=== PATIENT | male | born 1965 | race Caucasian/White ===

== ENCOUNTER → 2019-12-19 16:11 | Outpatient (BNVA) | payer OTHER, SELFPAY | PROVIDERS: Family Provider Internal Medicine; PCP Internal Medicine; Visit Provider Internal Medicine | DX: I10 Essential (primary) hypertension (principal); E11.9 Type 2 diabetes mellitus without complications; B19.20 Unspecified viral hepatitis C without hepatic coma; Z86.19 Personal history of other infectious and parasitic diseases; N52.1 Erectile dysfunction due to diseases classified elsewhere; E78.5 Hyperlipidemia, unspecified | CPT/HCPCS: 80053; 83036; 85025; 87522 ==

== ENCOUNTER 2021-10-30 19:59 | Emergency (ER) | payer SELFPAY ==
--- NOTE | 2021-10-30 20:25 | XRR_ITS ---
PROCEDURE INFORMATION: Exam: XR Chest Exam date and time: 10/30/2021 8:25 PM Age: 55 years old Clinical indication: Cough TECHNIQUE: Imaging protocol: XR of the chest. Views: 1 view. COMPARISON: CT chest [facility] [id number] 06/24/2016 7:30 PM FINDINGS: Lungs: Dependent ground-glass opacity in the right lung base. The left lung is clear. Pleural spaces: Unremarkable. No pleural effusion. No pneumothorax. Heart/Mediastinum: Mild cardiomegaly. Bones/joints: Unremarkable. XR/XR chest 1V portable [id number] IMPRESSION: 1. Opacity in the right base could represent atelectasis and/or pneumonia.
[2021-10-30 20:27] VITALS: BP 178/94; PULSE 91; RESP 18; TEMP 37.6; O2SAT 93
--- NOTE | 2021-10-30 20:32 | ED_ITS ---
Documented by User: Tony Falk MD 11/07/21 21:46 HPI - SOB/Dyspnea General: Chief Complaint: Shortness of Breath/Dyspnea Stated Complaint: coughing Time Seen by Provider: 10/30/21 20:31 History of Present Illness: HPI Narrative: Mr. Simpson is a 55-year-old gentleman with history of hypertension and diabetes and remote history of tobaccoism for 30 years who presents to the emergency department due to shortness of breath and cough. Symptoms have been ongoing for a few weeks. He was diagnosed approximately 3 weeks ago with bilateral pneumonia and completed his course of antibiotics with only minimal improvement. He endorses coughing spells that is mildly productive. Additionally he has associated dizziness and generalized malaise. No other signs of systemic illness or focal source of infection. Overall the course of symptoms has persisted. Intensity is moderate. No other specific exacerbating relieving factors identified. Review of Systems General: Reports: 10 or more systems reviewed and unremarkable except in HPI and below PFSH ED PFSH: Medical History (Updated 10/30/21 @ 22:48 by Tony Falk MD) Diabetes mellitus Essential (primary) hypertension WOLF on CPAP Surgical History History of colonoscopy with polypectomy Family History Father , AGE 56 Myocardial infarct Social History Smoking and tobacco status: former smoker Alcohol intake: never History of recent travel: No Physical Exam Narrative: EXAM NARRATIVE: GENERAL/CONSTITUTIONAL -mildly ill-appearing. Obes e Eyes - PERRL, no conjunctival injection ENMT - Atraumatic external nose and ears. Moist mucous membranes NECK - supple. trachea midline CARDIOVASCULAR - regular rate and rhythm. Peripheral pulses 2+ and equal RESPIRATORY -diminished/coarse to auscultation bilaterally. No retractions or accessory muscle use. ABDOMEN/GI - Nontender/Nondistended. MSK - Extremities without obvious deformity or tenderness to palpation SKIN - Warm, Dry NEURO - alert and appropriately oriented. Moves all extremities equally. Course ED course: - Patient was seen and evaluated by me at bedside - Patient placed on cardiac monitors, IV access obtained - Initial evaluation notable for exam as above -Symptom treatment ordered - Labs notable for no significant hematologic abnormalities. No acute electrolyte derangements. - Imaging notable for right base opacity - Patient care handed off to overnight ED physician Dr. Dolan pending completion of ED evaluation and reassessment. Vital Signs: Vital signs: Vital Signs Temperature 99.6 F 10/30/21 20:27 Pulse Rate 84 10/31/21 00:57 Respiratory Rate 24 H 10/31/21 00:57 Blood Pressure 165/108 10/31/21 00:57 Pulse Oximetry 92 10/31/21 00:57 MDM - SOB/Dyspnea Medical Records: Attestation: I reviewed the patient's medical records. Lab Data: Attestation: I reviewed the patient's lab results. Labs: Lab Results 10/30/21 10/30/21 10/30/21 21:04 21:30 21:30 WBC 4.1 10^3/uL 10^3/ uL (4.0-10.0) RBC 4.69 10^6/uL 10^6 /uL (4.1-5.3) Hgb 14.5 g/dL g/dL (11.7-16.6) Hct 43.6 % % (42.0-52.0) MCV 93.0 fl fl (80-94) MCH 30.9 pg pg (28.0-34.0) MCHC 33.3 g/dL g/dL (30.0-36.0) RDW 12.1 % % (12.1-15.1) Plt Count 163 10^3/cmm 10^3 /cmm (130-400) MPV 10.0 fL fL (7.4-10.4) Neut % (Auto) 47.5 % % Lymph % (Auto) 29.1 % % [place] % (Auto) 13.3 % % Eos % (Auto) 8.6 % % Baso % (Auto) 1.0 % % Neut # (Auto) 1.92 10^3/uL 10^3 /uL (1.8-7.7) Lymph # (Auto) 1.2 10^3/uL 10^3/ uL (0.8-4.8) [place] # (Auto) 0.5 10^3/uL 10^3/ uL (0.2-0.9) Eos # (Auto) 0.4 10^3/uL 10^3/ uL (0.0-0.8) Baso # (Auto) 0.0 10^3/uL 10^3/ uL (0.0-0.1) Nucleated RBC % (a uto) 0 % % Nucleated RBCs # 0.0 /100WBC /100W BC Sodium Cancelled Potassium Cancelled Chloride Cancelled Carbon Dioxide Cancelled Anion Gap Cancelled BUN Cancelled Creatinine Cancelled GFR Calculation Cancelled Glucose Cancelled Calculated Osmolal ity Cancelled Calcium Cancelled Total Bilirubin Cancelled AST Cancelled ALT Cancelled Alkaline Phosphata se Cancelled C-Reactive Protein Cancelled NT-Pro-B Natriuret Pep Cancelled Total Protein Cancelled Albumin Cancelled Globulin Cancelled Procalcitonin Cancelled SARS-CoV-2 Ag (Rap id) Positive H (Negative) 10/30/21 10/30/21 22:10 23:30 WBC RBC Hgb Hct MCV MCH MCHC RDW Plt Count MPV Neut % (Auto) Lymph % (Auto) [place] % (Auto) Eos % (Auto) Baso % (Auto) Neut # (Auto) Lymph # (Auto) [place] # (Auto) Eos # (Auto) Baso # (Auto) Nucleated RBC % (a uto) Nucleated RBCs # Sodium Cancelled 137 mmol/L mmol/L (136-145) Potassium Cancelled 3.9 mmol/L mmol/L (3.5-5.1) Chloride Cancelled 100 mmol/L mmol/L (98-107) Carbon Dioxide Cancelled 22 mmol/L mmol/L (22-29) Anion Gap Cancelled 18.9 (5-19) BUN Cancelled 14 mg/dL mg/dL (6-20) Creatinine Cancelled 0.9 mg/dL mg/dL (0.7-1.2) GFR Calculation Cancelled 87.0 mL/min L mL/ min (90-130) Glucose Cancelled 163 mg/dL H mg/dL (65-115) Calculated Osmolal ity Cancelled 288 mOsm/kg mOsm/ kg (285-295) Calcium Cancelled 8.3 mg/dL L mg/dL (8.5-10.5) Total Bilirubin Cancelled 0.2 mg/dL mg/dL (0.15-1.2) AST Cancelled 31 U/L U/L (0-40) ALT Cancelled 39 U/L U/L (0-41) Alkaline Phosphata se Cancelled 47 IU/L IU/L (40-130) C-Reactive Protein Cancelled 2.8 mg/L mg/L (0.0-4.9) NT-Pro-B Natriuret Pep Cancelled 186 pg/mL H pg/mL (0-125) Total Protein Cancelled 7.0 g/dL g/dL (6.6-8.7) Albumin Cancelled 4.1 g/dL g/dL (3.5-5.2) Globulin Cancelled 2.9 g/dL g/dL (1.3-4.6) Procalcitonin Cancelled 0.04 ng/mL ng/mL (0-0.5) SARS-CoV-2 Ag (Rap id) Discharge Plan Discharge Patient Disposition: Home Clinical Impression: COVID-19, Shortness of breath, Cough, Pneumonia due to COVID-19 virus Condition: Stable Prescriptions: New Pulmicort Flexhaler 90 mcg/actuation aerosol powdr breath activated 2 inh inhalation Q12H PRN (Reason: shortness of breath) Qty: 1 RF: 0 No Action tadalafil 10 mg tablet 10 mg PO DAILY PRN (Reason: sexual activity) Qty: 30 RF: 5 metformin 1,000 mg tablet 1,000 mg PO BID Qty: 180 RF: 3 lisinopril-hydrochlorothiazide 20-12.5 mg tablet 2 tab PO DAILY Qty: 180 RF: 3 Discharge Orders: Discharge ED (Routine); Ordered 10/31/21 Ordered By: Lauren Dolan Referrals: Kyle Traore MD [Primary Care Provider] - 1-3 days Discharge Diet: Usual diet Discharge Activity: Increase activity as tolerated Patient Instructions: COVID-19 (Coronavirus Disease 2019) (ED) Activity Restrictions/Additional Instructions: Thank you for visiting the emergency department. You were seen and evaluated for cough, shortness of breath, and dizziness. The exact cause of your symptoms is unclear though you did test positive for COVID-19 which likely explains your symptoms. Unfortunately, given that you have had symptoms for a number of weeks the exact day of onset of your Covid is unclear and therefore you do not qualify for monoclonal antibody infusion. Treatment for COVID-19 is supportive with self quarantine. You may use [id number] medications for symptoms as long as no prior physician has told you to avoid certain medications. Additionally please ensure that you are following dosing directions on the packaging. Please return to the emergency department for worsening symptoms, low oxygen levels on pulse oximeter (less than 90% while at rest) or anything else that you are concerned about and feel needs emergency department evaluation. Coding Level of Care Code ED [facility] for [place] Fwd Documented by User: Lauren Dolan MD 10/31/21 00:49 HPI - SOB/Dyspnea General: Chief Complaint: Shortness of Breath/Dyspnea Stated Complaint: coughing Time Seen by Provider: 10/30/21 20:31 [facility] ED PFSH: Medical History (Updated 10/30/21 @ 22:48 by Tony Falk MD) Diabetes mellitus Essential (primary) hypertension WOLF on CPAP Surgical History History of colonoscopy with polypectomy Family History Father , AGE 56 Myocardial infarct Social History Smoking and tobacco status: former smoker Alcohol intake: never History of recent travel: No Course Vital Signs: Vital signs: Vital Signs Temperature 99.6 F 10/30/21 20:27 Pulse Rate 84 10/31/21 00:57 Respiratory Rate 24 H 10/31/21 00:57 Blood Pressure 165/108 10/31/21 00:57 Pulse Oximetry 92 10/31/21 00:57 MDM - SOB/Dyspnea MDM Narrative: Medical decision making narrative: Patient presents with cough shortness of breath has been going on for weeks likely due to Covid. Patient is Covid positive here viral appearing pneumonia on x-ray patient's blood work here is normal he is not requiring oxygen he is not a candidate for monoclonal antibodies his symptoms have been too long he is stable for discharge return if worsening he understands agrees plan. Lab Data: Labs: Lab Results 10/30/21 10/30/21 10/30/21 21:04 21:30 21:30 WBC 4.1 10^3/uL 10^3/ uL (4.0-10.0) RBC 4.69 10^6/uL 10^6 /uL (4.1-5.3) Hgb 14.5 g/dL g/dL (11.7-16.6) Hct 43.6 % % (42.0-52.0) MCV 93.0 fl fl (80-94) MCH 30.9 pg pg (28.0-34.0) MCHC 33.3 g/dL g/dL (30.0-36.0) RDW 12.1 % % (12.1-15.1) Plt Count 163 10^3/cmm 10^3 /cmm (130-400) MPV 10.0 fL fL (7.4-10.4) Neut % (Auto) 47.5 % % Lymph % (Auto) 29.1 % % [place] % (Auto) 13.3 % % Eos % (Auto) 8.6 % % Baso % (Auto) 1.0 % % Neut # (Auto) 1.92 10^3/uL 10^3 /uL (1.8-7.7) Lymph # (Auto) 1.2 10^3/uL 10^3/ uL (0.8-4.8) [place] # (Auto) 0.5 10^3/uL 10^3/ uL (0.2-0.9) Eos # (Auto) 0.4 10^3/uL 10^3/ uL (0.0-0.8) Baso # (Auto) 0.0 10^3/uL 10^3/ uL (0.0-0.1) Nucleated RBC % (a uto) 0 % % Nucleated RBCs # 0.0 /100WBC /100W BC Sodium Cancelled Potassium Cancelled Chloride Cancelled Carbon Dioxide Cancelled Anion Gap Cancelled BUN Cancelled Creatinine Cancelled GFR Calculation Cancelled Glucose Cancelled Calculated Osmolal ity Cancelled Calcium Cancelled Total Bilirubin Cancelled AST Cancelled ALT Cancelled Alkaline Phosphata se Cancelled C-Reactive Protein Cancelled NT-Pro-B Natriuret Pep Cancelled Total Protein Cancelled Albumin Cancelled Globulin Cancelled Procalcitonin Cancelled SARS-CoV-2 Ag (Rap id) Positive H (Negative) 10/30/21 10/30/21 22:10 23:30 WBC RBC Hgb Hct MCV MCH MCHC RDW Plt Count MPV Neut % (Auto) Lymph % (Auto) [place] % (Auto) Eos % (Auto) Baso % (Auto) Neut # (Auto) Lymph # (Auto) [place] # (Auto) Eos # (Auto) Baso # (Auto) Nucleated RBC % (a uto) Nucleated RBCs # Sodium Cancelled 137 mmol/L mmol/L (136-145) Potassium Cancelled 3.9 mmol/L mmol/L (3.5-5.1) Chloride Cancelled 100 mmol/L mmol/L (98-107) Carbon Dioxide Cancelled 22 mmol/L mmol/L (22-29) Anion Gap Cancelled 18.9 (5-19) BUN Cancelled 14 mg/dL mg/dL (6-20) Creatinine Cancelled 0.9 mg/dL mg/dL (0.7-1.2) GFR Calculation Cancelled 87.0 mL/min L mL/ min (90-130) Glucose Cancelled 163 mg/dL H mg/dL (65-115) Calculated Osmolal ity Cancelled 288 mOsm/kg mOsm/ kg (285-295) Calcium Cancelled 8.3 mg/dL L mg/dL (8.5-10.5) Total Bilirubin Cancelled 0.2 mg/dL mg/dL (0.15-1.2) AST Cancelled 31 U/L U/L (0-40) ALT Cancelled 39 U/L U/L (0-41) Alkaline Phosphata se Cancelled 47 IU/L IU/L (40-130) C-Reactive Protein Cancelled 2.8 mg/L mg/L (0.0-4.9) NT-Pro-B Natriuret Pep Cancelled 186 pg/mL H pg/mL (0-125) Total Protein Cancelled 7.0 g/dL g/dL (6.6-8.7) Albumin Cancelled 4.1 g/dL g/dL (3.5-5.2) Globulin Cancelled 2.9 g/dL g/dL (1.3-4.6) Procalcitonin Cancelled 0.04 ng/mL ng/mL (0-0.5) SARS-CoV-2 Ag (Rap id) Discharge Plan Discharge Patient Disposition: Home Clinical Impression: COVID-19, Shortness of breath, Cough, Pneumonia due to COVID-19 virus Condition: Stable Prescriptions: New Pulmicort Flexhaler 90 mcg/actuation aerosol powdr breath activated 2 inh inhalation Q12H PRN (Reason: shortness of breath) Qty: 1 RF: 0 No Action tadalafil 10 mg tablet 10 mg PO DAILY PRN (Reason: sexual activity) Qty: 30 RF: 5 metformin 1,000 mg tablet 1,000 mg PO BID Qty: 180 RF: 3 lisinopril-hydrochlorothiazide 20-12.5 mg tablet 2 tab PO DAILY Qty: 180 RF: 3 Discharge Orders: Discharge ED (Routine); Ordered 10/31/21 Ordered By: Lauren Dolan Referrals: Kyle Traore MD [Primary Care Provider] - 1-3 days Discharge Diet: Usual diet Discharge Activity: Increase activity as tolerated Patient Instructions: COVID-19 (Coronavirus Disease 2019) (ED) Activity Restrictions/Additional Instructions: Thank you for visiting the emergency department. You were seen and evaluated for cough, shortness of breath, and dizziness. The exact cause of your symptoms is unclear though you did test positive for COVID-19 which likely explains your symptoms. Unfortunately, given that you have had symptoms for a number of weeks the exact day of onset of your Covid is unclear and therefore you do not qualify for monoclonal antibody infusion. Treatment for COVID-19 is supportive with self quarantine. You may use [id number] medications for symptoms as long as no prior physician has told you to avoid certain medications. Additionally please ensure that you are following dosing directions on the packaging. Please return to the emergency department for worsening symptoms, low oxygen levels on pulse oximeter (less than 90% while at rest) or anything else that you are concerned about and feel needs emergency department evaluation. Coding Level of Care Code ED [facility] for Rosalinda Ornelas
[2021-10-30 21:50] LABS: Eosinophils # 0.4 10^3/uL (0.0-0.8); Eosinophils % 8.6 %; Hematocrit 43.6 % (42.0-52.0); Hemoglobin 14.5 g/dL (11.7-16.6); Lymphocytes # 1.2 10^3/uL (0.8-4.8); Lymphocytes % 29.1 %; Mean Corpuscular HGB Conc 33.3 g/dL (30.0-36.0); Mean Corpuscular Hemoglobin 30.9 pg (28.0-34.0); Monocytes # 0.5 10^3/uL (0.2-0.9); Monocytes % 13.3 %; Neutrophils # 1.92 10^3/uL (1.8-7.7); Neutrophils % 47.5 %; Nucleated Red Blood Cells % 0 %; Platelet Count 163 10^3/cmm (130-400); Red Blood Count 4.69 10^6/uL (4.1-5.3); Red Cell Distribution Width 12.1 % (12.1-15.1); White Blood Count 4.1 10^3/uL (4.0-10.0)
[2021-10-30 22:15] LABS: SARS Covid-2 Antigen Positive (Negative)
[2021-10-30] MEDS: ketorolac 30 mg/mL INJ 15 MG IVP (23:07)
[2021-10-30] MEDS: sodium chloride 0.9% 500 ML 999 ML IV (23:08)
[2021-10-30 23:15] VITALS: BP 142/95; PULSE 94; RESP 24; O2SAT 94
[2021-10-31 00:10] VITALS: BP 141/97; PULSE 84; RESP 24; O2SAT 94
[2021-10-31 00:12] LABS: NT Pro B Type Natriuretic Pept 186 pg/mL (0-125); Procalcitonin 0.04 ng/mL (0-0.5)
[2021-10-31 00:23] LABS: Alanine Aminotransferase 39 U/L (0-41); Albumin Level 4.1 g/dL (3.5-5.2); Alkaline Phosphatase 47 IU/L (40-130); Anion Gap 18.9 (5-19); Aspartate Amino Transferase 31 U/L (0-40); Blood Urea Nitrogen 14 mg/dL (6-20); C Reactive Protein 2.8 mg/L (0.0-4.9); Calcium 8.3 mg/dL (8.5-10.5); Carbon Dioxide 22 mmol/L (22-29); Chloride 100 mmol/L (98-107); Globulin 2.9 g/dL (1.3-4.6); Glucose 163 mg/dL (65-115); Osmolality Calculated 288 mOsm/kg (285-295); Potassium 3.9 mmol/L (3.5-5.1); Sodium 137 mmol/L (136-145); Total Bilirubin 0.2 mg/dL (0.15-1.2)
[2021-10-31 00:57] VITALS: BP 165/108; PULSE 84; RESP 24; O2SAT 92
== END 2021-10-31 00:30 | disposition home or self-care (01) ==
PROVIDERS: Emergency Medicine; Emergency Provider Emergency Medicine; PCP Internal Medicine
DX: U07.1 COVID-19 (principal); J12.82 Pneumonia due to coronavirus disease 2019; R05.9 Cough, unspecified; R06.02 Shortness of breath; E11.9 Type 2 diabetes mellitus without complications; Z79.84 Long term (current) use of oral hypoglycemic drugs; I10 Essential (primary) hypertension
CPT/HCPCS: 71045; 80053; 83880; 84145; 85025; 86140; 87426; 96374; 99284; J1885; J7040

== ENCOUNTER 2022-06-11 20:49 | Emergency (ER) | payer OTHER, SELFPAY ==
[2022-06-11 21:02] VITALS: BP 138/87; PULSE 90; RESP 16; TEMP 35.9; O2SAT 94
--- NOTE | 2022-06-11 23:51 | W.ED.DENTAL ---
HPI - Dental/Oral General: Chief complaint: Dental/Oral Stated complaint: tooth pain Time Seen by Provider: 06/11/22 23:28 History of Present Illness: Patient is a 56-year-old male comes to the ED with dental pain. Dental pain started couple days ago. He has a bad tooth in his back left lower molar. He endorses having pain that he rates as moderate to severe. He has an appointment scheduled with dentist in about 3 weeks. Associated symptoms: Denies fever(s) or odynophagia Review of Systems Const: Denies: fever(s), chills or fatigue Eyes: Denies: change in vision or eye discomfort ENMT: Reports: dental pain; Denies: throat pain, odynophagia, nasal discharge or nasal congestion Card: Denies: chest pain, palpitations, edema, swelling of feet/ankles, dyspnea on exertion or orthopnea Resp: Denies: dyspnea, productive cough or non-productive cough GI: Denies: abdominal pain, nausea, vomiting, diarrhea, constipation or hematochezia : Denies: flank pain, difficulty urinating, dysuria or hematuria Musc: Denies: neck pain, back pain or extremity swelling Skin/Breast: Denies: rash or new lesions Neuro: Denies: headache(s), numbness in extremities or weakness in extremities PFSH ED PFSH: Medical History Diabetes mellitus Essential (primary) hypertension WOLF on CPAP Surgical History History of colonoscopy with polypectomy Family History Father , AGE 56 Myocardial infarct Social History Smoking and tobacco status: former smoker Alcohol intake: never History of recent travel: No Physical Exam Const: COMMON NORMALS: patient oriented x3 and alert GENERAL APPEARANCE: cooperative HENMT: COMMON NORMALS: normocephalic HEAD & SCALP: normocephalic MOUTH: Normal oral and palatal mucosa present TEETH & GINGIVA: Yes caries and Yes poor dentition THROAT: posterior oropharynx normal and uvula midline Neck/C-Spine: COMMON NORMALS: supple GENERAL: Yes normal visual inspection Resp: COMMON NORMALS: normal respiratory effort, No retractions, No use of accessory muscles and clear to auscultation bilaterally AUSCULTATION: clear to auscultation bilaterally Cardio: COMMON NORMALS: regular rate, regular rhythm, S1 normal heart sound present, S2 normal heart sound present, No gallops present (Cardio), No clicks present (Cardio), No murmurs present (Cardio) and Peripheral pulses 2+ throughout RATE: regular rate RHYTHM: regular rhythm HEART SOUNDS: S1 normal heart sound present and S2 normal heart sound present PERIPHERAL PULSES: Peripheral pulses 2+ throughout GI: COMMON NORMALS: Normal to inspection, nondistended, normoactive bowel sounds present, Soft to palpation, non-tender and no masses PALPATION: Yes Soft to palpation : COMMON NORMALS: Yes no CVA tenderness BLADDER/KIDNEY EXAM: Yes no CVA tenderness Back/Pelvis: COMMON NORMALS: no CVA tenderness Extremity: COMMON NORMALS: normal to inspection Neuro: COMMON NORMALS: patient oriented x3 SENSORIUM/ORIENTATION: Yes alert GAIT: Yes Normal gait present Skin: GENERAL SKIN EXAM: dry skin Course Vital Signs: Vital signs: Vital Signs Temperature 96.6 F L 06/12/22 00:13 Pulse Rate 90 06/12/22 00:13 Respiratory Rate 16 06/12/22 00:13 Blood Pressure 138/87 06/12/22 00:13 Pulse Oximetry 94 06/12/22 00:13 Oxygen Delivery Me thod 06/11/22 21:02 [facility] - Dental/Oral Medical Decision Making Patient is a 56-year-old male comes to the ED with dental pain. Patient has poor dentition and has a scheduled appointment set up with a dentist in the next 3 weeks. He was stable for discharge home and sent home with a prescription for clindamycin and some tramadol for pain. Return to ED precautions given. Patient told to follow-up with dentist at your next scheduled appointment for further management of dental pain. Patient understood and agreed with plan. Discharge Plan Discharge Patient Disposition: Home Clinical Impression: Pain, dental Condition: Stable Prescriptions: New clindamycin HCl 150 mg capsule 300 mg PO Q6H 7 Days Qty: 56 0RF Lidocaine Viscous 2 % solution 1 applic mucous membrane Q8H PRN (Reason: pain) Qty: 100 0RF No Action Centrum Silver Men 300-600-300 mcg tablet 1 tab PO DAILY Eliquis 5 mg tablet 5 mg PO BID Qty: 180 3RF atorvastatin 40 mg tablet 40 mg PO DAILY Qty: 90 3RF diltiazem HCl 180 mg capsule,extended release 24 hr 180 mg PO DAILY Qty: 90 8RF Jardiance 25 mg tablet 25 mg PO DAILY Qty: 90 3RF lisinopril-hydrochlorothiazide 20-12.5 mg tablet 2 tab PO DAILY Qty: 180 3RF metformin 500 mg tablet extended release 24hr 1,000 mg PO BID Qty: 180 3RF Pulmicort Flexhaler 90 mcg/actuation aerosol powdr breath activated 2 inh inhalation Q12H PRN (Reason: shortness of breath) Qty: 1 0RF Discharge Orders: Discharge ED (Routine); Ordered 06/11/22 Ordered By: Rinku Kraus Referrals: Kyle Traore MD [Primary Care Provider] - Discharge Diet: Regular Discharge Activity: Increase activity as tolerated Activity Restrictions/Additional Instructions: Follow-up with dentist at your scheduled appointment for further evaluation and management of dental pain. Take medications as prescribed. Return to the ER or your medical provider if condition worsens. Please read and understand discharge instructions. Thank you for choosing [facility] for your healthcare needs today. Please realize this is an emergency room and that we are providing you with a medical screening exam and this may not be complete and all inclusive of all the testing and or work up that you may need to determine your ailment or severity of your illness. It is very important that you follow up as instructed or that you return to the Emergency Department should you have concerns or if your condition changes or worsens in any way. Coding Level of Care Code ED Community Affairs Manager for Rosalinda Ornelas Exam Comprehensive
[2022-06-12] MEDS: TRAMadol 50 mg Tablet 100 MG PO (00:12)
[2022-06-12] MEDS: clindamycin 150 mg Capsule 300 MG PO (00:12)
[2022-06-12 00:13] VITALS: BP 138/87; PULSE 90; RESP 16; TEMP 35.9; O2SAT 94
== END 2022-06-12 00:13 | disposition home or self-care (01) ==
PROVIDERS: Emergency Provider Physician Assistant; PCP Internal Medicine
DX: K08.89 Other specified disorders of teeth and supporting structures (principal); Z79.01 Long term (current) use of anticoagulants; Z79.84 Long term (current) use of oral hypoglycemic drugs; E11.9 Type 2 diabetes mellitus without complications; I10 Essential (primary) hypertension; Z87.891 Personal history of nicotine dependence
CPT/HCPCS: 99283

== ENCOUNTER 2025-03-15 11:11 | Emergency (ER) | payer BC, SELFPAY ==
[2025-03-15] VITALS (12 sets, daily range): BP systolic 91–159; BP diastolic 71–94; PULSE 69–97; RESP 16–18; TEMP 36.7; O2SAT 93–100; BMI 40.6
--- NOTE | 2025-03-15 11:12 | ECG_ITS ---
[employer] Test Date: 2025-03-15 Pat Name: Fan Simpson Department: Room: Gender: Male News Assistant: : 1965 Requested By: Cade Max Order Number: [id number] Tien MD: Yordy Ferreira M.D. Measurements Intervals [place] Rate: 93 P: 0 [place]: 0 QRS: -42 QRSD: 156 T: 107 QT: 393 QTc: 491 Interpretive Statements ATRIAL FIBRILLATION WITH ABERRANT CONDUCTION OR VENTRICULAR PREMATURE COMPLEXES LEFT AXIS DEVIATION [QRS AXIS < -30] LEFT BUNDLE BRANCH BLOCK [120+ ms QRS DURATION, 80+ ms Q/S IN V1/V2, 85+ ms R IN I/aVL/V5/V6] Compared to ECG 06/23/2016 07:33:05 Ventricular premature complex(es) now present Aberrant conduction of supraventricular beat(s) now present Left-axis deviation now present Left bundle-branch block now present Sinus tachycardia no longer present T-wave abnormality no longer present Electronically Signed On 03-16-2025 13:43:48 CDT by Yordy Ferreira M.D. [id number]
--- NOTE | 2025-03-15 11:31 | XR_ITS ---
WS: [id number] XR chest 1V portable [id number] REASON FOR EXAM: chest pain FINDINGS: The chest is unchanged compared to 10/30/2021. There is mild tortuosity of the thoracic aorta. There is cardiomegaly. Calcified granulomatous disease bilaterally. No acute pulmonary parenchymal or pleural abnormality. XR/XR chest 1V portable [id number] IMPRESSION: Stable chest without acute abnormality as above.
[2025-03-15 11:40] LABS: Basophils # 0.1 10^3/uL (0.0-0.1); Basophils % 0.8 %; Eosinophils # 0.9 10^3/uL (0.0-0.8); Eosinophils % 10.1 %; Lymphocytes # 2.3 10^3/uL (0.8-4.8); Lymphocytes % 26.2 %; Mean Corpuscular HGB Conc 34.7 g/dL (30-55); Mean Corpuscular Hemoglobin 31.1 pg (27-33); Mean Corpuscular Volume 89.5 fl (82-101); Mean Platelet Volume 9.6 fL (7.4-10.4); Monocytes # 0.9 10^3/uL (0.2-0.9); Monocytes % 10.1 %; Neutrophils # 4.64 10^3/uL (1.8-7.7); Neutrophils % 51.9 %; Nucleated Red Blood Cells % 0 %; Platelet Count 217 10^3/cmm (157-399); Red Cell Distribution Width 11.9 % (12.1-15.1); White Blood Count 8.93 10^3/uL (3.29-11.43)
--- NOTE | 2025-03-15 11:45 | W.ED.CHESTPA ---
HPI - Chest Pain General: Chief Complaint: Chest Pain Stated Complaint: cp, dizzy, sob Time Seen by Provider: 03/15/25 11:22 History of Present Illness: Patient is a 59-year-old male who presents with acute onset chest pain that began approximately one hour prior to arrival. He describes central chest pain with radiation to both shoulders and jaw, characterized as a squeezing sensation. The patient also reports associated symptoms of dizziness and lightheadedness, with earlier shortness of breath. The pain began while he was sitting at rest. He denies back pain. Of note, patient has significant cardiac risk factors including atrial fibrillation, hypertension, and type 2 diabetes. He underwent cardiac catheterization approximately 1.5 years ago in [place], which revealed minor disease not requiring intervention. He reports compliance with his anticoagulation (Eliquis) for atrial fibrillation. He has not taken any aspirin prior to arrival. Related Data Home Medications ?Medication ?Instructions ?Recorded ?Confirmed chlorthalidone 25 mg tablet 25 mg PO DAILY 03/15/25 03/15/25 lisinopril 40 mg tablet 40 mg PO DAILY 03/15/25 03/15/25 metoprolol succinate 25 mg 25 mg PO DAILY 03/15/25 03/15/25 tablet,extended release 24 hr semaglutide 1 mg/dose (4 mg/3 mL) 1 mg SUBCUT Q7D 03/15/25 03/15/25 subcutaneous pen injector (Ozempic) Previous Rx's ?Medication ?Instructions ?Recorded apixaban 5 mg tablet (Eliquis) 5 mg PO BID #180 tabs 05/07/22 atorvastatin 40 mg tablet 40 mg PO DAILY #90 tabs 05/07/22 diltiazem HCl 180 mg capsule,24 180 mg PO DAILY #90 caps 05/07/22 hr,extended release empagliflozin 25 mg tablet 25 mg PO DAILY #90 tabs 05/07/22 (Jardiance) Allergies Allergy/AdvReac Type Severity Reaction Status Date / Time No Known Allergies Allergy Verified 03/18/23 18:20 [facility] ED PFS: Medical History (Updated 03/15/25 @ 14:26 by Rick Pool MD) Diabetes mellitus WOLF on CPAP Essential (primary) hypertension Surgical History History of colonoscopy with polypectomy Family History Father , AGE 56 Myocardial infarct Social History Smoking and tobacco/nicotine status: former use of tobacco/nicotine Alcohol intake: never Physical Exam Const: COMMON NORMALS: no acute distress, alert and well nourished GENERAL APPEARANCE: cooperative NUTRITIONAL APPEARANCE: obese ORIENTATION/CONSCIOUSNESS: Yes awake HENMT: COMMON NORMALS: normocephalic and atraumatic HEAD & SCALP: normocephalic and atraumatic Eye: COMMON NORMALS: conjunctivae normal CONJUNCTIVA: Yes conjunctivae normal Neck/C-Spine: GENERAL: Yes normal visual inspection Resp: COMMON NORMALS: normal respiratory effort, No retractions and No use of accessory muscles Cardio: COMMON NORMALS: Peripheral pulses 2+ throughout RHYTHM: abnormal rhythm PERIPHERAL PULSES: Peripheral pulses 2+ throughout GI: COMMON NORMALS: Soft to palpation and non-tender PALPATION: Yes Soft to palpation Extremity: COMMON NORMALS: full ROM and no pedal edema Neuro: COMMON NORMALS: no focal motor deficits SENSORIUM/ORIENTATION: Yes alert Skin: COMMON NORMALS: no rashes or lesions noted GENERAL SKIN EXAM: no rashes or lesions noted Course Vital Signs: Vital signs: Vital Signs Temperature 98.1 F 03/15/25 11:18 Pulse Rate 78 03/15/25 13:49 Respiratory Rate 16 03/15/25 12:25 Blood Pressure 102/76 03/15/25 13:30 Pulse Oximetry 100 03/15/25 13:49 Oxygen Delivery Me thod BiPAP 03/15/25 13:49 MDM - Chest Pain Medical Decision Making Review of Systems: Constitutional: Denies fever Cardiovascular: Positive for chest pain, dizziness Respiratory: Positive for earlier shortness of breath Neurological: Positive for lightheadedness All other systems reviewed and negative Medications: 1. Eliquis (apixaban) - dose not specified 2. 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 Atrial fibrillation 2. Hypertension 3. Type 2 Diabetes Mellitus 4. COPD 5. 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 Smoking: Former smoker, quit in 2010 Alcohol: Occasional use, approximately once per month Drug use: Not mentioned Family History: No family history provided in plant health care technician Vital Signs: Heart Rate: 91 beats per minute Blood Pressure: 136/94 mmHg Oxygen Saturation: 94% on room air Temperature: Not provided Respiratory Rate: Not provided Physical Exam: General: Well-appearing, obese male in no acute distress Cardiovascular: Irregular rhythm noted, irregular rate Respiratory: Clear breath sounds bilaterally Abdomen: Soft, obese, non-tender Extremities: No clubbing, cyanosis, or edema noted Lab Results: Initial labs pending, including cardiac enzymes (troponin) Imaging and Other Relevant Results: Pending Medical Decision Making: Summary Statement: 59-year-old male with multiple cardiac risk factors presenting with acute onset chest pain concerning for acute coronary syndrome. Problem List: 1. Acute chest pain, 2. Known atrial fibrillation, 3. Hypertension, 4. Type 2 diabetes, 5. COPD Differential Diagnosis: 1. Acute coronary syndrome/ME, 2. Unstable angina, 3. Acute atrial fibrillation with RVR, 4. Aortic dissection, 5. Pulmonary embolism ED Course: Patient received IV access, cardiac monitoring initiated. Plan for serial troponins, ECG, and administration of aspirin and sublingual nitroglycerin for chest pain. Assessment and Plan: 1. Acute chest pain: - Initiate ACS labs with serial troponins and ECGs - Administer aspirin 325mg and sublingual nitroglycerin - disposition pending labs 2. Atrial fibrillation: - Currently on Eliquis, continue anticoagulation - Monitor heart rate and rhythm Patient is a nontoxic 59-year-old male with no previous history of coronary disease who does have a known history of A-fib and is anticoagulated with Eliquis and presents to the ER with an episode of some squeezing-like left-sided chest pain. His pain started about an hour or so before arrival was better by time I saw him. His EKG was atrial fibrillation with a left bundle branch block noted. No previous EKGs available for comparison. Repeat EKG is unchanged. Troponin and delta troponin are both normal. Laboratory workup is unremarkable. Chest x-ray is unremarkable per radiology. Symptoms do not seem consistent with dissection. He is very low risk for PE, has no tachycardia, tachypnea, or hypoxemia. He is also anticoagulant Eliquis which lowers my concern for PE. He has an appointment to follow-up with cardiology in a couple of weeks however I have requested he contact their office today to request expedition of this follow-up appointment. He expresses understanding and is comfortable with discharge and is pain-free on reassessment. Lab Data I reviewed the patient's lab results. 03/15/25 11:30 03/15/25 11:30 Radiology Impressions Chest X-Ray 03/15/25 11:31 IMPRESSION: Stable chest without acute abnormality as above. Laboratory Results WBC 8.93 10^3/uL (3.29-11.43) 03/15/25 11:30 RBC 5.70 10^6/uL (3.85-5.65) H 03/15/25 11:30 Hgb 17.70 g/dL (11.27-16.99) H 03/15/25 11:30 Hct 51.0 % (37-53) 03/15/25 11:30 MCV 89.5 fl (82-101) 03/15/25 11:30 MCH 31.1 pg (27-33) 03/15/25 11:30 MCHC 34.7 g/dL (30-55) 03/15/25 11:30 RDW 11.9 % (12.1-15.1) L 03/15/25 11:30 Plt Count 217 10^3/cmm (157-399) 03/15/25 11:30 MPV 9.6 fL (7.4-10.4) 03/15/25 11:30 Neut % (Auto) 51.9 % 03/15/25 11:30 Lymph % (Auto) 26.2 % 03/15/25 11:30 [place] % (Auto) 10.1 % 03/15/25 11:30 Eos % (Auto) 10.1 % 03/15/25 11:30 Baso % (Auto) 0.8 % 03/15/25 11:30 Neut # (Auto) 4.64 10^3/uL (1.8-7.7) 03/15/25 11:30 Lymph # (Auto) 2.3 10^3/uL (0.8-4.8) 03/15/25 11:30 [place] # (Auto) 0.9 10^3/uL (0.2-0.9) 03/15/25 11:30 Eos # (Auto) 0.9 10^3/uL (0.0-0.8) H 03/15/25 11:30 Baso # (Auto) 0.1 10^3/uL (0.0-0.1) 03/15/25 11:30 Nucleated RBC % (auto) 0 % 03/15/25 11:30 Nucleated RBCs # 0.0 /100WBC 03/15/25 11:30 PT 15.00 SECONDS (12.1-14.9) H 03/15/25 11:30 INR 1.10 (0.8-1.2) 03/15/25 11:30 APTT 32.0 SECONDS (23.9-36.7) 03/15/25 11:30 Sodium 137 mmol/L (136-145) 03/15/25 11:30 Potassium 3.8 mmol/L (3.5-5.1) 03/15/25 11:30 Chloride 98 mmol/L (98-107) 03/15/25 11:30 Carbon Dioxide 24 mmol/L (22-29) 03/15/25 11:30 Anion Gap 18.8 (5-19) 03/15/25 11:30 BUN 17 mg/dL (8-23) 03/15/25 11:30 Creatinine 1.0 mg/dL (0.7-1.2) 03/15/25 11:30 GFR Calculation 76.0 mL/min (90-130) L 03/15/25 11:30 Glucose 152 mg/dL (65-115) H 03/15/25 11:30 Calculated Osmolality 289 mOsm/kg (285-295) 03/15/25 11:30 Calcium 9.5 mg/dL (8.5-10.5) 03/15/25 11:30 Total Bilirubin 0.5 mg/dL (0.15-1.2) 03/15/25 11:30 AST 16 U/L (0-40) 03/15/25 11:30 ALT 17 U/L (0-41) 03/15/25 11:30 Alkaline Phosphatase 64 U/L (40-130) 03/15/25 11:30 Troponin T Baseline 12 ng/L (0-15) 03/15/25 11:30 Troponin T 120 Minute 10.66 ng/L (0-15) 03/15/25 13:24 Delta Troponin T -1.34 ABS# (0-10) L 03/15/25 13:24 Total Protein 7.5 g/dL (6.6-8.7) 03/15/25 11:30 Albumin 4.6 g/dL (3.5-5.2) 03/15/25 11:30 Globulin 2.9 g/dL (1.3-4.6) 03/15/25 11:30 Lipase 37 U/L (13-60) 03/15/25 11:30 All radiology interpretation(s) finalized by discharge Discharge Plan Discharge Patient Disposition: Home Clinical Impression: Chest pain Condition: Stable Prescriptions: No Action Eliquis 5 mg tablet 5 mg PO BID Qty: 180 3RF atorvastatin 40 mg tablet 40 mg PO DAILY Qty: 90 3RF diltiazem HCl 180 mg capsule,extended release 24 hr 180 mg PO DAILY Qty: 90 8RF Jardiance 25 mg tablet 25 mg PO DAILY Qty: 90 3RF chlorthalidone 25 mg tablet 25 mg PO DAILY metoprolol succinate 25 mg tablet extended release 24 hr 25 mg PO DAILY lisinopril 40 mg tablet 40 mg PO DAILY Ozempic 1 mg/dose (4 mg/3 mL) pen injector 1 mg SUBCUT Q7D Discharge Orders: Discharge ED (Routine); Ordered 03/15/25 Ordered By: Rick Pool Referrals: Kevin Duenas MD [Primary Care Provider, [facility]] Discharge Diet: Diabetic and Low Salt Discharge Activity: Increase activity as tolerated Patient Instructions: Chest Pain (DC), Opioid Safety, Pain Management Activity Restrictions/Additional Instructions: Continue all home medications as previously directed. Follow-up with your primary care provider and moshgiach as discussed. Return to the ER for any new or worsening symptoms or any other concerns. Print Language: Syriac Coding Level of Care Code ED Outdoor Studies Professor for Rosalinda Ornelas
[2025-03-15] MEDS: aspirin 81 mg Chew Tablet 324 MG PO (11:54)
[2025-03-15 11:56] LABS: Troponin(5th) Baseline 12 ng/L (0-15)
--- NOTE | 2025-03-15 11:56 | PC.NURSE ---
pt states he is supposed to take 1 tab eliquis BID but states he just takes 2 tabs once a day in the morning.
[2025-03-15 12:02] LABS: Alanine Aminotransferase 17 U/L (0-41); Albumin Level 4.6 g/dL (3.5-5.2); Alkaline Phosphatase 64 U/L (40-130); Aspartate Amino Transferase 16 U/L (0-40); Blood Urea Nitrogen 17 mg/dL (8-23); Calcium 9.5 mg/dL (8.5-10.5); Carbon Dioxide 24 mmol/L (22-29); Chloride 98 mmol/L (98-107); Creatinine Clr Calc Pharmacy 101.2903; Globulin 2.9 g/dL (1.3-4.6); Glucose 152 mg/dL (65-115); Lipase 37 U/L (13-60); Osmolality Calculated 289 mOsm/kg (285-295); Sodium 137 mmol/L (136-145); Total Bilirubin 0.5 mg/dL (0.15-1.2); Total Protein 7.5 g/dL (6.6-8.7)
[2025-03-15 12:10] LABS: Anion Gap 18.8 (5-19); Potassium 3.8 mmol/L (3.5-5.1)
--- NOTE | 2025-03-15 13:45 | ECG_ITS ---
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: : 1965 Requested By: Rick Pool Order Number: [id number] Tien MD: BRIAN HOLCOMB Measurements Intervals [place] Rate: 85 P: 0 [place]: 0 QRS: -51 QRSD: 161 T: 106 QT: 413 QTc: 492 Interpretive Statements ATRIAL FIBRILLATION LEFT AXIS DEVIATION [QRS AXIS < -30] LEFT BUNDLE BRANCH BLOCK [120+ ms QRS DURATION, 80+ ms Q/S IN V1/V2, 85+ ms R IN I/aVL/V5/V6] Compared to ECG 03/15/2025 11:16:24 Ventricular premature complex(es) no longer present Aberrant conduction of supraventricular beat(s) no longer present Electronically Signed On 03-17-2025 16:29:37 CDT by BRIAN HOLCOMB [email or web address] [id number]
[2025-03-15 13:54] LABS: Troponin 5 2HR 10.66 ng/L (0-15)
[2025-03-15 13:56] LABS: Troponin 5 2HR Delta -1.34 ABS# (0-10)
== END 2025-03-15 14:49 | disposition home or self-care (01) ==
PROVIDERS: Emergency Provider Student in an Organized Health Care Education/Training Program; PCP Family Medicine
DX: R07.9 Chest pain, unspecified (principal); Z79.01 Long term (current) use of anticoagulants; Z87.891 Personal history of nicotine dependence; E11.9 Type 2 diabetes mellitus without complications; I10 Essential (primary) hypertension
CPT/HCPCS: 36415; 71045; 80053; 83690; 84484; 85025; 85610; 85730; 93005; 99285; J9999

== ENCOUNTER 2025-05-13 08:27 | Observation (INO) | payer BC, SELFPAY ==
--- OUTSIDE RECORDS SUMMARY | 2003-11-07 19:00 | XMS_ITS | Continuity of Care Document ---
[facility] [address] [place] [address] Organization [facility] Care Team Providers Care Core Loader Name Role Phone [facility] Un[facility] Unavailable Problems Problem Status Onset [...] Diabetes mellitus type 2 (disorder) Resolved Condition Shortness of breath Active Diagnosis Body mass index 40+ - severely obese (finding) Diagnosis Exposure to 2019 novel coronavirus Diagnosis Cardiomegaly (disorder) Diagnosis Type II diabetes mellitus without complication (disorder) Diagnosis Morbid obesity (disorder) Diagnosis Obstructive sleep apnea syndrome (disorder) Diagnosis Essential hypertension (disorder) Diagnosis Atherosclerosis of coronary artery (disorder) Diagnosis Chronic obstructive lung disease (disorder) Diagnosis Family history: Cardiovascular disease (context-dependent category) Diagnosis Procedures Procedure Code Date Perfomer Comments Source Tonsillectomy and adenoidect nusrat; younger than age [id number] [facility] [place], [place]
--- OUTSIDE RECORDS SUMMARY | 2003-11-07 19:00 | XMS_ITS | Continuity of Care Document ---
[facility] Address [address] [place] [address] Organization [facility] Care Team Providers Care Hi Lo Driver Name Role Phone [facility] Unavailable Problems Problem Status Onset [...] and adenoidect nusrat; younger than age 10 [id number] [facility]
[2025-05-13] VITALS (30 sets, daily range): BP systolic 112–168; BP diastolic 52–87; PULSE 87–131; RESP 8–30; TEMP 36.9–38.4; O2SAT 90–99; BMI 41.3
--- OUTSIDE RECORDS SUMMARY | 2025-05-13 08:38 | XMS_ITS | Clinical Summary ---
Author Organization [facility] Address [address] [place] [address] Phone Care Team Providers Care Biostatistics Professor Name Role Phone Unavailable Primary Care Provider Unavailabl e Social History Tobacco Use Types Packs/Day Years Used Date Smoking Tobacco: Never Assessed Sex and Gender Information Value Date Recorded Sex Assigned at Not on file Legal Sex Male 10:52 AM CDT Gender Identity Not on file Sexual Orientation Not on file Plan of Treatment Health Maintenance Due Date Last Done Comments DTAP/TDAP/TD VACCINES (1 - Tdap) 1982 COLORECTAL SCREENING 2008 Colorectal Cancer Screening 2008 FIT-DNA Q 3 years 2008 FIT/FOBT Q 1 year 2008 Flex Sig/CT Colonography Q 5 years 2008 ZOSTER VACCINE (1 of 2) 2013 INFLUENZA VACCINE (#1) 2025 RSV VACCINE (60+ or ) (1 - 1-dose 75+ series) 2038 Insurance [facility] PREFERRED
--- OUTSIDE RECORDS SUMMARY | 2025-05-13 08:39 | XMS_ITS | Data Portability ---
Author Organization SINDI [facility], [facility] Address [address] [place] [address] Care Team Providers Care Associate Professor Computer Science Name Role Phone DOROTHY DUENAS Primary Care Provider Assessment Encounter Date Assessment Date Assessment LastModified by Organization Details LastModified Time 05/16/2024 05/16/2024 jardiance is 16/month eliquis is 10/month he will go to the pharmacy and let me know right away. [email or web address] Not available 05/16/2024 09:31:14 08/25/2024 08/25/2024 wear unna 5 days then start compression stockings with moisturization as discussed f/u if any open sores or redness recurs [email or web address] Not available 08/25/2024 08:39:54 10/02/2024 10/02/2024 he may return to work. continue compression stockings with moisturization as discussed. he has two pairs. f/u if any open sores or redness recurs. he may resume full duty at work. [email or web address] Not available 10/02/2024 08:43:53 Plan of Treatment Reminders Order Date Submit Date Provider Last Modified By Organization Details Last Modified Time Details Appointments ANNUAL EXAM 2024 08:30A M Dorothy Duenas MD Not available Not available Not available Lab CBC 2023 024 [email or web address], [address] [facility], [facility], [place], [address], 01/28/2025 17:05:26 CMP, serum or plasma 2023 024 [email or web address], [address], [address], [place], [address], 01/28/2025 17:05:27 CMP, serum or plasma 2023 024 [email or web address] [facility], [address] [facility], [address], [place], [address], 05/23/2024 07:45:49 HbA1c (hemogl obin A1c), blood 2023 024 [facility] [address] [place], [address], 01/29/2025 02:21:07 microal bumin/c recolettei ne, mass ratio, urine 2023 024 [facility], [address] [address], [address] [place], [address], 05/23/2024 07:45:49 CBC 2023 024 [email or web address] [facility], [address], [address], [place], [address], 05/23/2024 07:45:49 lipid panel, blood - has started a new medicat on therefo re would like to recheck 2023 024 [email or web address] [facility], [address] [facility], [address], [place], [address], 12/03/2024 05:00:59 Referral cardiol ogist referra l 2024 025 [email or web address] [facility], [address] [place] [address], [address], [place], [address], 03/09/2025 21:45:34 vein special ist referra l 2023 [email or web address] [facility] ([facility] Sched[facility]), [address] [place], [address], 10/06/2024 09:34:36 Procedures Applica tion of unna boot wrap (PROC) 2023 024 [email or web address] [facility], [address] [place] [address], [facility], [place], [address], 08/25/2024 19:38:59 Surgeries None gisell ramirez Imaging venous mapping , lower extremi ty, complet e [email or web address] [place] [address] [facility], [address], [place], [address], 08/28/2024 09:49:15 Medication Orders Ozempic 1 mg/dose (4 mg/3 mL) subcuta neous pen injecto r 2024 025 [facility], [address] [place], [address], 01/03/2025 14:54:11 triamci nolone acetoni de 0.1 % topical cream 2023 024 [facility], [address] [place] [address], [address], 08/22/2024 11:00:52 mupiroc in 2 % topical ointmen t 2023 024 [facility], [address] [place], [address], 08/22/2024 11:00:52 Patient TargetsNo targets recorded. Patient InstructionsNo instructions recorded. Reason for Referral Vein Specialist Referral for Venous stasis ulcer with edema of right lower leg Referring Physician: Dorothy Duenas, Family Medicine, Encounter Date: 08/22/2024 Dance Entertainer Referral for At rial fibrillation Referring Physician: Dorothy Duenas, Family Medicine, Encounter Date: 12/25/2024 Results Created Date Observation Date Name Description Value Unit Range Abnormal Flag Note LastModifiedBy Organization Detail LastModifiedTime 05/15/20 24 05/15/2024 CBC WBC 6.5 x10 4.5-10 .5 Not Available [facility] [address], [place], [address], 05/15/2024 10:31:15 05/15/20 24 05/15/2024 CBC RBC 4.80 x10 4.30-5 .90 Not Available [facility] [address] [facility] [address], [place], [address], 05/15/2024 10:31:15 05/15/20 24 05/15/2024 CBC HGB 14.7 g/dL 13.5-1 8.0 Not Available [facility] [address] [facility], [place], [address], 05/15/2024 10:31:15 05/15/20 24 05/15/2024 CBC HCT 44.1 % 35.0-6 0.0 Not Available [facility] [address] [facility] [address], [place], [address], 05/15/2024 10:31:15 05/15/20 24 05/15/2024 CBC MCV 91.8 fL 80.0-9 9.9 Not Available [facility] [address] [facility] [address], [place], [address], 05/15/2024 10:31:15 05/15/20 24 05/15/2024 CBC MCH 30.7 pg 27.0-3 2.0 Not Available [facility] [address] [facility] [address], [place], [address], 05/15/2024 10:31:15 05/15/20 24 05/15/2024 CBC MCHC 33.4 g/dL 32.0-3 6.0 Not Available [facility] [address] [facility], [place], [address], 05/15/2024 10:31:15 05/15/20 24 05/15/2024 CBC RDW 13.4 % 11.5-1 4.5 Not Available [facility] [address] [facility], [place], [address], 05/15/2024 10:31:15 05/15/20 24 05/15/2024 CBC plt 160.1 x10 150.0- 451.0 Not Available [facility] [address] [facility], [place], [address], 05/15/2024 10:31:15 05/15/20 24 05/15/2024 CBC lymphocytes % 20.6 % 20.0-5 0.0 Not Available [facility] [address] [facility], [place], [address], 05/15/2024 10:31:15 05/15/20 24 05/15/2024 CBC granulcytes % 57.7 % 30.0-7 0.0 Not Available [facility] [address] [facility], [place], [address], 05/15/2024 10:31:15 05/15/20 24 05/15/2024 CBC monocytes % 8.8 % 2.0-16 .0 Not Available [facility] [address] [facility], [place], [address], 05/15/2024 10:31:15 05/15/20 24 05/15/2024 CBC granulcytes# 3.7 x10 Not Shania ilable [facility] [address] [facility], [place], [address], 05/15/2024 10:31:15 05/15/20 24 05/15/2024 CBC lymphocytes # 1.3 x10 Not Available [facility] [address] [facility], [place], [address], 05/15/2024 10:31:15 05/15/20 24 05/15/2024 CBC monocytes # 0.6 x10 Not Avai lable [facility] [address] [facility], [place], [address], 05/15/2024 10:31:15 05/15/20 24 05/15/2024 CMP (MALE ) glucose 202.0 mg/dL 60.0-9 9.0 high Not Available [facility] [address] [facility] [address], [place], [address], 05/15/2024 12:28:52 05/15/20 24 05/15/2024 CMP (MALE ) BUN (blood urea nitrogen) 23.0 mg/dL 10.0-2 6.0 Not Available [facility] [address] [facility] [address], [place], [address], 05/15/2024 12:28:52 05/15/20 24 05/15/2024 CMP (MALE ) creatinine (serum) 0.9 mg/dL 0.4-1. 5 Not Available [facility] [address] [facility] [address], [place], [address], 05/15/2024 12:28:52 05/15/20 24 05/15/2024 CMP (MALE ) BUN/creatini ne ratio 26.44 ratio Not Available [facility] [address] [facility], [place], [address], 05/15/2024 12:28:52 05/15/20 24 05/15/2024 CMP (MALE ) eGFR calculated 95.1 Not Available [facility] [address] [facility] [address], [place], [address], 05/15/2024 12:28:52 05/15/20 24 05/15/2024 CMP (MALE ) total protein 7.2 g/dL 6.0-8. 5 Not Available [facility] [address] [facility], [place], [address], 05/15/2024 12:28:52 05/15/20 24 05/15/2024 CMP (MALE ) total bilirubin 0.9 mg/dL 0.2-1. 3 Not Available [facility] [address] [facility], [place], [address], 05/15/2024 12:28:52 05/15/20 24 05/15/2024 CMP (MALE ) albumin 4.3 g/dL 3.5-5. 5 Not Available [facility] [address] [facility], [place], [address], 05/15/2024 12:28:52 05/15/20 24 05/15/2024 CMP (MALE ) globulin 2.9 calc Not Available [facility] [address] [facility] [address] [facility], [place], [address], 05/15/2024 12:28:52 05/15/20 24 05/15/2024 CMP (MALE ) AST (SGOT) 21.0 U/L 0.0-46 .0 Not Available [facility] [address] [facility], [place], [address], 05/15/2024 12:28:52 05/15/20 24 05/15/2024 CMP (MALE ) altv (SGPT) 20.0 U/L 13.0-6 9.0 normal Not Available [facility] [address] [facility], [place], [address], 05/15/2024 12:28:52 05/15/20 24 05/15/2024 CMP (MALE ) A/G ratio 1.5 ratio Not Available [facility] [address] [facility], [place], [address], 05/15/2024 12:28:52 05/15/20 24 05/15/2024 CMP (MALE ) ALP phos 60.0 U/L 30.0-1 40.0 normal Not Available [facility] [address] [facility], [place], [address], 05/15/2024 12:28:52 05/15/20 24 05/15/2024 CMP (MALE ) calcium 9.3 mg/dL 8.4-10 .5 Not Available [facility] [address] [facility], [place], [address], 05/15/2024 12:28:52 05/15/20 24 05/15/2024 CMP (MALE ) sodium 140.0 mmol/ L 136.0- 145.0 Not Available [facility] [address] [facility], [place], [address], 05/15/2024 12:28:52 05/15/20 24 05/15/2024 CMP (MALE ) potassium 4.0 mmol/ L 3.5-5. 1 Not Available [facility] [address] [facility], [place], [address], 05/15/2024 12:28:52 05/15/20 24 05/15/2024 CMP (MALE ) chloride 109.0 mmol/ L 98.0-1 10.0 normal Not Available [facility] [address] [facility], [place], [address], 05/15/2024 12:28:52 05/15/20 24 05/15/2024 CMP (MALE ) C02 23.0 mmol/ L 22.0-3 1.0 Not Available [facility] [address], [place], [address], 05/15/2024 12:28:52 05/15/20 24 05/15/2024 CMP (MALE ) anion gap 8.0 calc Not Available [facility] [address], [place], [address], 05/15/2024 12:28:52 05/15/20 24 05/15/2024 CMP (MALE ) osmolality 297.8 calc Not Available [facility] [address], [place], [address], 05/15/2024 12:28:52 05/15/20 24 05/16/2024 ALBUM IN, RANDO M URINE W/CRE ATINI NE creatinine, random urine 222 mg/dL 20-320 normal Not Available [address] [address] [place], [address], 05/16/2024 12:52:57 05/15/20 24 05/16/2024 ALBUM IN, RANDO M URINE W/CRE ATINI NE albumin, urine 2.5 mg/dL see note: normal Refer ence Range : Refer ence Range Not estab lishe d Not Available [facility] [address] [place], [address], 05/16/2024 12:52:57 05/15/20 24 05/16/2024 ALBUM IN, RANDO M URINE W/CRE ATINI NE albumin/crea tinine ratio, random urine 11 mg/g_ creat <30 normal The ADA defin es abnor malit ies in album in excre tion as follo ws: Album inuri a Categ ory Resul t (mg/g creat inine ) Rdaha l to Mildl y incre ased <30 Moder ately incre ased 30-29 9 Sever facundo incre ased > OR = 300 The ADA recom mends that at least two of three speci mens colle cted withi n a 3-6 month perio d be abnor mal befor e consi lorne g a patie nt to be withi n a diagn ostic categ ory. Not Available [facility] [address] [place], [address], 05/16/2024 12:52:57 05/15/20 24 05/16/2024 PSA, TOTAL PSA, total 0.37 NG/mL < or = 4.00 normal The total PSA value from this assay syste m is stand ardiz ed again st the WHO stand mi. The test resul t will be appro ximat facundo 20% lower when antoine red to the equim olar- stand ardiz ed total PSA (Hickey man Coult er). Antoine rison of seria l PSA resul ts shoul d be inter prete d with this fact in mind. This test was perfo rmed using the Niblitze ns chemi lumin escen t metho d. Value s obtai darrick from diffe rent assay metho ds canno t be used inter nj eably . PSA level s, regar dless of value , shoul d not be inter prete d as absol diomede evide nce of the prese nce or absen ce of disea se. Not Available [facility] [address] [address] , [place], [address], 05/16/2024 12:52:57 05/15/20 24 05/15/2024 HbA1c (hemo globi n A1c), blood HbA1c 7.9 Not Available [facility] [address] [place] [address], [address], 05/15/2024 10:10:41 09/29/20 24 09/29/2024 theron s rafael frey, ryan extre mity, compl ete No observ ation record ed. [email or web address] [address] [place], [address], 10/02/2024 08:31:08 Result Notes None recorded. Problems Name Problem SNOMED Code Status Onset Date Resolution Date Notes Provider Name and Address Organization Details Recorded Time Type 2 diabetes mellitus 13436384 Active 2022 KRISSY francisco [facility] 3 08:19:40 Atrial fibrillati on 96422515 Active 2022 KRISSY francisco [facility] 3 08:19:50 Essential hypertensi on 04309618 Active 2022 KRISSY francisco [facility] 3 08:20:02 Obstructiv e sleep apnea syndrome 19716502 Active 2022 KRISSY francisco [facility] 3 08:20:12 Hyperlipid emia 77808349 Active 2022 KRISSY francisco [facility] 3 08:20:17 Coronary atheroscle rosis 069256579 Active 2022 KRISSY francisco [facility] 3 08:27:04 Chronic hepatitis C 088061266 Active [address] Traore. Currently in remission KRISSY francisco [facility] 3 08:31:23 Microalbum inuric diabetic nephropath y 689664203 Active 2022 KRISSY francisco [facility] 5 09:13:21 Problem Notes None recorded. Procedures Surgical History Date Name Laterality Status Provider Name and Address Organization Details Recorded Time tonsillectomy and adenoidectomy completed KRISSYPRIYANK BRADLEY [facility] 07/27/2023 08:30:10 Imaging Results None recorded. Procedure Notes None recorded. Medical Equipment None Reported. Allergies Allergen ID Allergen Name Allergen Category Reaction Reaction Severity Criticality Documentation Date Start Date Code Code System Note Provider Name and Address Organization Details Recorded Time 90581 hydrocodo ne Not available vomiting Not available Not available 07/27/2023 5489 RxNorm KRISSY KIRK francisco [facility] 3 08:24:58 36353 metformin medicatio n diarrhea Not available Not available 07/06/2024 6809 RxNorm KRISSY KIRK francisco [facility] 4 11:21:31 Medications Name Sig Start Date Stop Date Status Note LastModified by Organization Details LastModified Time atorvastati n 40 mg tablet TAKE 1 TABLET BY MOUTH EVERY DAY active Not Available Not Available No t Available lisinopril 20 mg-hydrochl orothiazide 12.5 mg tablet TAKE TWO TABLETS BY MOUTH DAILY 07/27 completed Not Available Not Available Not Available diltiazem CD 180 mg capsule,ext ended release 24 hr Take 1 capsule every day by oral route for 90 days. 08/22 completed Not Available Not Available Not Available chlorthalid one 25 mg tablet TAKE 1 TABLET BY MOUTH EVERY DAY active Not Available Not Available No t Available sulfamethox azole 800 mg-trimetho prim 160 mg tablet TAKE 2 TABLETS BY MOUTH TWICE DAILY FOR 5 DAYS 08/22 completed Not Available Not Available Not Available aspirin 81 mg tablet,ajay yed release 08/22 completed Not Available Not Available Not Available triamcinolo ne acetonide 0.1 % topical cream APPLY A THIN LAYER TO AFFECTED AREA TOPICALLY TWICE DAILY active Not Available Not Available No t Available prednisone 10 mg tablets in a dose pack 07/27 completed Not Available Not Available Not Available cephalexin 500 mg capsule 07/27 completed Not Available Not Available Not Available mupirocin 2 % topical ointment APPLY A SMALL AMOUNT TO AFFECTED AREA THREE TIMES DAILY active Not Available Not Available No t Available metoprolol succinate ER 25 mg tablet,exte nded release 24 hr TAKE 1 TABLET BY MOUTH EVERY DAY active Not Available Not Available No t Available albuterol sulfate HFA 90 mcg/actuati on aerosol inhaler 1-2 puffs every 4-6 hrs prn active Not Available Not Available No t Available lisinopril 40 mg tablet TAKE 1 TABLET BY MOUTH EVERY DAY active Not Available Not Available No t Available metformin ER 500 mg tablet,exte nded release 24 hr TAKE TWO TABLETS BY MOUTH TWICE DAILY 07/27 completed Not Available Not Available Not Available diltiazem ER (XR/XT) 180 mg capsule,ext ended release 24 hr, controlled take 1 capsule BY MOUTH EVERY DAY active Not Available Not Available No t Available amoxicillin 875 mg-potmarciu m clavulanate 125 mg tablet TAKE 1 TABLET BY MOUTH TWICE DAILY FOR 10 DAYS 10/02 completed Not Available Not Available Not Available oxycodone 5 mg tablet TAKE 1 TABLET BY MOUTH EVERY 4 HOURS NEEDED FOR ACUTE PAIN 08/25 completed Not Available Not Available Not Available metoprolol tartrate 25 mg tablet TAKE 1 TABLET BY MOUTH TWICE DAILY 05/16 completed Not Available Not Available Not Available Eliquis 5 mg tablet TAKE 1 TABLET BY MOUTH TWICE DAILY active Not Available Not Available No t Available Jardiance 25 mg tablet TAKE 1 TABLET BY MOUTH EVERY DAY active Not Available Not Available No t Available TechLITE Pen Needle 32 gauge x 5/32 USE DIRECTED 2023 active Not Available Not Available Not Avai lable Ozempic 0.25 mg or 0.5 mg (2 mg/1.5 mL) subcutaneou s pen injector Inject 0.25 mg every week by subcutane ous route for 28 days. 10/04 completed Not Available Not Available Not Available Ozempic 1 mg/dose (4 mg/3 mL) subcutaneou s pen injector inject 1mg SUBCUTANE OUSLY every week active Not Available Not Available No t Available Ozempic 0.25 mg or 0.5 mg (2 mg/3 mL) subcutaneou s pen injector INJECT 0.5 MG SUBCUTANE OUSLY ONCE A WEEK 02/01 completed Not Available Not Available Not Available Vitals Date Recorded Body height Body weight Oxygen saturation Oxygen saturation in Arterial blood by Pulse oximetry Heart rate Body temperature Systolic And Diastolic Provider Name and Address Organization Details Last Updated DateTime 5 173.36 cm 201070. 94 g 96 % 96 % 68 /min 97.4 [degF] 130/74 mm[Hg] KRISSY BRADLEY [facility] 5 09:26:23 Date Recorded Body height Body mass index (BMI) Body weight Body temperature Heart rate Oxygen saturation Oxygen saturation in Arterial blood by Pulse oximetry Systolic And Diastolic Provider Name and Address Organization Details Last Updated DateTime 4 173.36 cm 42.1 kg/m2 104930. 27 g 97.9 [degF] 81 /min 97 % 97 % 142/88 mm[Hg] KRISSY BRADLEY [facility] 4 09:17:22 Date Recorded Body height Body mass index (BMI) Body weight Body temperature Heart rate Oxygen saturation Oxygen saturation in Arterial blood by Pulse oximetry Systolic And Diastolic Provider Name and Address Organization Details Last Updated DateTime 4 173.36 cm 38.6 kg/m2 735992. 65 g 97.1 [degF] 85 /min 98 % 98 % 122/76 mm[Hg] KRISSY BRADLEY [facility] 4 09:35:02 Date Recorded Body height Body mass index (BMI) Body weight Body temperature Heart rate Oxygen saturation Oxygen saturation in Arterial blood by Pulse oximetry Systolic And Diastolic Provider Name and Address Organization Details Last Updated DateTime 4 173.36 cm 38.8 kg/m2 064463. 24 g 97.4 [degF] 87 /min 95 % 95 % 124/78 mm[Hg] [facility] 4 08:28:30 Date Recorded Body height Body mass index (BMI) Body weight Body temperature Heart rate Oxygen saturation Oxygen saturation in Arterial blood by Pulse oximetry Systolic And Diastolic Provider Name and Address Organization Details Last Updated DateTime 4 173.36 cm 39.2 kg/m2 422632. 02 g 97.4 [degF] 79 /min 92 % 92 % 132/80 mm[Hg] [facility] 4 08:25:03 Social History Question Answer Notes LastModified by Organizat ion Details LastModified Time Tobacco Smoking Status Former Smoker [facility] 07/27/2023 08:29:54 When Did You Quit Smoking? 11-15yearssi issac [email or web address] Information not available 07/27/2023 How Many Years Have You Smoked Tobacco? 29 [email or web address] Information not available 07/27/2023 Sex: Unknown Functional Status Question Answer Note LastModified by Organizat ion Details LastModified Time Do you or have you ever used any other forms of tobacco or nicotine? Yes [email or web address] Information not available 07/27/2023 What is your level of alcohol consumption? Occasional [email or web address] Information not available 07/27/2023 Do you or have you ever used smokeless tobacco? Never used smokeless tobacco [email or web address] Information not available 07/27/2023 Do you or have you ever used e-cigarettes or vape? Former user of electronic cigarettes [email or web address] Information not available 07/27/2023 Mental Status None recorded. Family History Relationship Description Onset Age of this Age Resolved Age Notes LastModified by Organization Details LastModified Time Brother Myocardial infarction [email or web address] Not available 07/09 08:27:40 Father Myocardial infarction [email or web address] Not available 07/09 08:27:40 Maternal Grandmother Malignant tumor of colon Not available 07/27 08:28:07 Maternal Uncle Malignant tumor of colon [email or web address] Not available 07/27 08:28:07 Mother Type 2 diabetes mellitus [email or web address] Not available 07/27 08:28:38 Medical History Condition Response Hepatitis Y Heart Disease Y Immunizations Vaccine Type Date Status Note Provider Nam e and Address Organization Details Recorded Time Hep B, adult 12/22/2011 completed [facility]/27/2023 08:18:46 Hep B, adult 08/01/2010 [facility]ilar [facility] 07/27/2023 08:18:46 Hep B, adult 09/22/2011 [facility] 07/27/2023 08:18:46 Past Encounters Encounter ID Performer Location Encounter Start Date Encounter Closed Date Diagnosis/Indication Diagnosis SNOMED-CT Code Diagnosis ICD10 Code Diagnosis Note [id number] Dorothy Duenas MD [facility] [address] [place] [phone] 07/27/2023 08:09:44 07/27/2023 12:49:32 Type 2 diabetes mellitus 76376564 E11.69 Severe obesity 303820758 1 9104 E66.01 Essential hypertension 86648940 I10 Screening for malignant neoplasm of prostate 869072876 Z12.5 History of hepatitis C 6346771389 9101 Z86.19 Atrial fibrillation 4943 6004 I48.91 Hyperlipidemia 82233871 E78.5 [id number] Dorothy Duenas MD [facility] [address] [place] [id number] 10/04/2023 08:40:13 10/04/2023 09:24:04 Essential hypertension 58640083 I10 Type 2 allison betes mellitus 61524183 E11.69 recommende d diabetic eye examinatio n. Microalbum inuric diabetic nephropathy 798995714 E11.21 [id number] Dorothy Duenas MD [facility] [address] [place] [address] [phone] 5 04/10/2024 09:41:02 04/10/2024 12:13:13 Atrial fibrillation [id number] I48.91 Coronary atherosclerosis [id number] I25.10 Essential hypertension 65307259 I10 Hyperlipidemia 22624758 E78.5 Obstructiv e sleep apnea syndrome 59116963 G47.33 Type 2 allison betes mellitus 17937111 E11.69 recommende d diabetic eye examinatio n. has not been taking his ozempic for 3 weeks or moreis taking his other meds. he will resume and report sugars in 30 days. [id number] Dorothy Duenas MD [facility] [address] [place] [address] [phone] 5 05/15/2024 10:09:30 05/15/2024 14:47:51 Essential hypertension 10231152 I10 Type 2 allison betes mellitus 82615211 E11.69 recommende d diabetic eye examinatio n. has not been taking his ozempic for 3 weeks or moreis taking his other meds. he will resume and report sugars in 30 days. Screening for malignant neoplasm of prostate 451985408 Z12.5 [id number] Dorothy Duenas MD [facility] [address] [place] [address] [phone] 5 05/16/2024 09:11:08 05/16/2024 10:59:02 Atrial fibrillation 33014653 I48.91 Coronary atherosclerosis 109985385 I25.10 Essential hypertension 94587055 I10 Hyperlipidemia 84458327 E78.5 Obstructiv e sleep apnea syndrome 19150249 G47.33 Type 2 allison betes mellitus 00113465 E11.69 recommende d diabetic eye examinatio n. has not been taking his ozempic for 3 weeks or moreis taking his other meds. he will resume and report sugars in 30 days. [id number] Dorothy Duenas MD [facility] [address] [place] [address] [phone] 5 08/22/2024 09:27:53 08/22/2024 11:02:12 Venous stasis ulcer with edema of right lower leg [id number] 7065036 L97.919 Cellulitis of right lower limb 9387791293 7612757 L03.115 Stasis lizzette matitis of lower limb due to chronic peripheral venous hypertension 372718617 I87.399 Administra tion of tetanus vaccine 211163092 Z23 [id number] Dorothy Duenas MD [facility] [address] [place] [address] [phone] 5 08/25/2024 08:13:34 08/25/2024 08:45:58 Venous stasis ulcer with edema of right lower leg [id number] 4495264 L97.919 Cellulitis of right lower limb 5333796810 5915832 L03.115 greatly improved/r esolved Stasis lizzette matitis of lower limb due to chronic peripheral venous hypertension 527200550 I87.399 Administra tion of tetanus vaccine 308487997 Z23 [id number] Dorothy Duenas MD [facility] [address] [place] [address] [phone] 5 10/02/2024 08:17:47 10/02/2024 12:07:07 Cellulitis of right lower limb 4061336802 8829588 L03.115 greatly improved/r esolvedhe may resume full dutyrecomm ended daily skin moisturiza tion and skin care and use of compressio n stockings. Adult atte ntion deficit hyperactivity disorder 294696447 F90.9 suspected dx. he reports he was tx with ritalin in the late 60's or early 70's in his early elementary years. he reports he continues to have difficulty focusing and paying attention. we discussed heart rhythm risk. we discussed risk of arrhythmia exacerbati on with all adhd meds. we discussed lower risk with wellbutrin which he took before. he would rather not tx this condition at this time. 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 he reports he has been clean for 28 years. I praised his efforts and offered support. 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 has not been taking his ozempic for 3 weeks or moreis taking his other meds. he will resume and report sugars in 30 days. Obstructiv e sleep apnea syndrome 67636530 G47.33 Health Concerns Section Related Observation LastModified by Organization Detai ls LastModified Time None Recorded Concern Status LastModified by Organization Details LastModified Time None Recorded Advance Directives Directive None Recorded Payers Insurance Date Sequence Insurance Name Policy Number Policy Haro Covered Member ID Haro Member ID Guarantor Name 12/29/2024 1 [id number] [id number] Fan Simpson [id number] Fan Simpson Notes Date Note Type Note Provider Name and Address Organization Details Recorded Time 05/16/2024 text/html DiabetesReported bypatient.Review finger sticks:fasting: (usual range is between 150s-170s) Duration:chronic Control:treated with diet and oral medications; hemoglobin A1C has been 7-8 Compliance:compliant with home glucose monitoring Self Care:monitoring glucose daily Associated Symptoms:no dizziness; no headaches; no confusion; no numbness of feet; no calluses on feet; no blurred vision Chronic Complications:hyperten lisa: Yes; hyperlipidemia: Yes Comorbidities:coronary artery disease: YesHypertension IM/FMReported bypatient.Quality:here for check-up Severity:stage 1 (130-139/80-89 mmHg) Duration:HTN present for years Onset/Timing:gradual onset Self Care:non-smoker Associated Symptoms:no shortness of breath; no palpitations; no chest painNotes:patient reports that he hasn't been able to afford his medications, so he has been out of his BP medications for a little while. He is working on getting them filled. he has not taken his medication except eliquis for two weeks.he is taking the eliquis.he will go to the pharmacy, use good rx and call and let us know what medications are too high. Dorothy Duenas MD [address] [place] [address], [phone], [facility]. 05/22/2024 08:16:03 08/22/2024 text/html hospital f/u: Pt reports that he has had two hospitalizations for cellulitis of his right leg. The first was in [facility] and the 2nd was [place]. Both for the same problem. He reports that he has seen an improvement in the cellulitis, however, he still has a lot of redness and pain, but this has improved. He was treated with IV ABX. Sxs started July 31. Pt was started on Bactrim at the first hospital d/c, but the second hospitalization showed a little kidney elevation, and they thought the ABX was causing that. no records are available today. I asked him to sign a release for each hospitalization. he did have a fever 102.5 on 07/31 this was the day of the1st hospitalization. he was hospitalized for 7-8 days. 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 he went to the ER due to pain and ankle swelling. he was hospitalized from 08/11-08/16. he is still taking the Augmentin he was discharged on. He left his paperwork at home. his blood sugar did not require any SSI during the second hospitalization except for 1 time. He has not been monitoring his glucose at home. Dorothy Duenas MD [address] [place] [address], [phone], [facility] 08/22/2024 10:19:53 08/25/2024 text/html Pt is here for a 3 day f/u. He has had an unna boot on for 2 days and is here to have his progress evaluated. previous hospital f/u: Pt reports that he has had two hospitalizations for cellulitis of his right leg. The first was in [facility] and the 2nd was [place]. Both for the same problem. He reports that he has seen an improvement in the cellulitis, however, he still has a lot of redness and pain, but this has improved. He was treated with IV ABX. Sxs started July 31. Pt was started on Bactrim at the first hospital d/c, but the second hospitalization showed a little kidney elevation, and they thought the ABX was causing that. no records are available today. I asked him to sign a release for each hospitalization. he did have a fever 102.5 on 07/31 this was the day of the1st hospitalization. he was hospitalized for 7-8 days. 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 he went to the ER due to pain and ankle swelling. he was hospitalized from 08/11-08/16. he is still taking the Augmentin he was discharged on. He left his paperwork at home. his blood sugar did not require any SSI during the second hospitalization except for 1 time. He has not been monitoring his glucose at home. Dorothy Duenas MD [address] [place], [phone], [facility] 08/25/2024 08:40:07 10/02/2024 text/html Generic HPI TemplateReported bypatient.Context:Pt is here to f/u on the imaging done with his verin specialist[place], [phone], [facility], Ismael. 10/02/2024 08:45:35 12/25/2024 text/html a1c 6.3 at his d ot physicalbp was 118/78he is feeling wellhe had a urine test as well. he will have those results sent to me.afibno signs or sx's at all. 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 Dorothy Duenas MD [address] [place], [phone], [facility], LFloraLTanna. 12/25/2024 09:22:03
--- OUTSIDE RECORDS SUMMARY | 2025-05-13 08:39 | XMS_ITS ---
Author Organization Unknown Address [address] [place] [phone] Phone Care Team Providers Care Casket Coverer Name Role Phone DOYLE MARINO MD Attending Unavailable Results B-TYPE NATRIURETIC PEPTIDE - Collect Date/Time: 07/31/2024 18:07 [facility] ID: [id number] [address] [place], [place], [phone] LOINC: 49545-8 Test Value Unit Reference Range Code Code System Flag BNP 263 pg/mL L=0 H=100 H COMPREH METAB PANEL - Collec t Date/Time: 07/31/2024 18:07 [facility] ID: [id number] [address] [place], [place], [id number] LOINC: 45636-9 Test Value Unit Reference Range Code Code System Flag SODIUM 136 mmol/L L=135 H=145 2951-2 LOINC POTASSIUM 3.7 mmol/L L=3.6 H=5.2 2823-3 LOINC CHLORIDE 94 mmol/L L=98 H=107 L CO2 31.0 mmol/L L=21.0 H=32.0 2028-9 LOINC GLUCOSE 155 mg/dL L=70 H=110 2345-7 LOINC H BUN 24 mg/dL L=7 H=18 H CREATININE 1.88 mg/dL L=0.55 H=1.30 2160-0 LOINC H CALCIUM 9.3 mg/dL L=8.5 H=10.1 ALBUMIN 4.0 g/dL L=3.4 H=5.0 TOTAL PROTEIN 8.1 g/dL L=6.0 H=8.0 H TOTAL BILI 1.10 mg/dL L=0.00 H=1.00 H SGOT/AST 23 U/L L=15 H=37 SGPT/ALT 29 U/L L=16 H=63 ALKALINE PHOS 53 U/L L=50 H=136 AGE 58 yrs GFR 39 mL/min LACTIC ACID, PLASMA - Collec t Date/Time: 07/31/2024 18:07 [facility] ID: [id number] [address] [place], [place], [id number] LOINC: 2524-7 Test Value Unit Reference Range Code Code System Flag LACTIC ACID 2.8 mmol/L L=0.4 H=2.0 HH MAGNESIUM - Collect Date/Kamaljit e: 07/31/2024 18:07 [facility] ID: [id number] [address] [place], [place], [id number] LOINC: 87923-0 Test Value Unit Reference Range Code Code System Flag MAGNESIUM 1.5 mg/dL L=1.8 H=2.4 L CBC - Collect Date/Time: 18:07 [facility] ID: [id number] [address] [place], [place], [id number] LOINC: 76094-4 Test Value Unit Reference Range Code Code System Flag WBC 20.7 K/uL L=3.7 H=10.5 14923-6 LOINC HH RBC 5.18 M/uL L=4.50 H=6.20 HEMOGLOBIN 16.2 g/dL L=13.5 H=18.6 HEMATOCRIT 46.7 % L=40.5 H=55.8 4544-3 LOINC MCV 90 fL L=82 H=99 MCH 31.3 pg L=25.0 H=35.0 MCHC 34.7 g/dL L=32.0 H=36.0 RDW-CV 11.8 % L=11.5 H=14.5 RDW-SD 39.2 fL L=35.1 H=43.9 PLATELETS 161 K/uL L=150 H=450 MPV 9.5 fL L=9.0 H=10.2 %NEUT 81.0 % L=44.0 H=74.0 H %BAND 11.0 % L=0.0 H=4.0 H %LYMPH 4.0 % L=26.0 H=43.0 L ATYP LYMPH 0.0 % L=0.0 H=7.0 %MONO 4.0 % L=0.0 H=10.0 %EOS 0.0 % L=2.0 H=3.0 L %BASO 0.0 % L=0.0 H=3.0 %IG 0.0 % L=0.0 H=0.5 #NEUT 19.04 K/uL L=1.80 H=7.70 H #LYMPH 0.83 K/uL L=1.00 H=4.80 L #MONO 0.70 K/uL L=0.00 H=0.80 #EOS 0.00 K/uL L=0.00 H=0.45 #BASO 0.00 K/uL L=0.00 H=0.20 #IG 0.00 K/uL L=0.00 H=0.40 DIFFERENTIAL MANUAL PLT EST ADEQUATE NORMAL: ADEQUATE PLT MORPH NORMAL NORMAL: NORMAL RBC MORPH NORMAL PT/PTT - Collect Date/Time: 07/31/2024 18:07 [facility] ID: [id number] [address] [place] [address], [id number] LOINC: Test Value Unit Reference Range Code Code System Flag PROTIME 15.6 Secs L=9.4 H=12.5 98487-7 LOINC H INR 1.36 L=1.00 H=4.00 PTT 36.6 Secs L=25.1 H=36.5 21907-2 LOINC H TROPONIN I - Collect Date/Ti me: 07/31/2024 18:07 [facility] ID: [id number] [address] [place] [address], [id number] LOINC: 24244-8 Test Value Unit Reference Range Code Code System Flag TROPONIN I 0.051 ng/mL L=0.000 H=0.030 HH GENE XPRT SARS COV-2_FLU_RSV PLUS PCR - Collect Date/Time: 07/31/2024 18:05 [facility] ID: [id number] [address] [place] [address], [place], [place], [phone] LOINC: 11304-9 Test Value Unit Reference Range Code Code System Flag SARS CoV-2 NEGATIVE NORMAL: Negative 82432-0 LOINC INFLUENZA A NEGATIVE NORMAL: Negative 56841-9 LOINC INFLUENZA B NEGATIVE NORMAL: Negative 11691-4 LOINC RSV NEGATIVE NORMAL: Negative 41640-2 [place]INC [place]? [place] [address]-7 LOINC CHEST PA&LAT - Completed: 19:00 LOINC: \TM00\12PI\DRAo\BM09\PGN O\MRB2\ [place] [address] ---------NAME--------- NUMBER SEX AGE ADMIT DISC. XRAY# F/C TYPE ISABELLE DANIEL [id number] M 58 07/31/24 [id number] LAURA E.R. DATE OF : 1965 M/R# [id number] PH#: [phone] ER-03 \MRx\ LOCATION: TRANSCRIBED: 07/31/24 19:21 CHEST PA&LAT 76597 COMPLETED:07/31/24 19:00 [place] [id number] REASON FOR STUDY: Shortness of Breath PHYSICIAN: DOYLE ANGEL BE R A D I O L O G Y R E P O R T INDICATION: SHORTNESS OF BREWATH EXAM/TECHNIQUE: Two-view chest COMPARISON: No prior exam available for comparison. DISCUSSION: See impression. No pleural effusion, pneumothorax, or focal pulmonary consolidation. No acute osseous abnormality. IMPRESSION: 1. Borderline cardiomegaly. 2. Mild central bronchovascular and diffuse interstitial prominence, could be secondary to edema or infection. This document has been electronically signed by: Rick Masters II, MD on 07/31/2024 19:21:44 Electronically Signed By: Rick Masters MD Date/Time: 07/31/24 19:21 Social History Type Status Start Date End Date Code Code Syst em Sex Male Hospital Discharge Instructions Should you have any questions prior to discharge, please contact a member of your healthcare team. If you have left the hospital and have any questions, please contact your primary care physician. Reason For Referral No Data Found Plan of Treatment No Data Found Encounters Encounter Diagnosis Start Date Code Code Sys tem Cellulitis of right lower limb 07/31/2024 SNOMED-CT Personal Care Team Section Imaging Narrative Notes [facility] \TM00\12PI\DRAo\BM09\PGNO\MRB2\ [place] [address] ---------NAME--------- NUMBER SEX AGE ADMIT DISC. XRAY# F/C TYPE ISABELLE SANCHEZ [id number] M 58 07/31/24 [id number] LAURA Card DATE OF : 1965 M/R# [id number] #: [phone] ER-03 \MRHx\ LOCATION: TRANSCRIBED: 07/31/24 19:21 CHEST PA&LAT 24707 COMPLETED:07/31/24 19:00 [place] [id number] REASON FOR STUDY: Shortness of Breath PHYSICIAN: DOYLE ANGEL BE R A D I O L O G Y R E P O R T INDICATION: SHORTNESS OF BREWATH EXAM/TECHNIQUE: Two-view chest COMPARISON: No prior exam available for comparison. DISCUSSION: See impression. No pleural effusion, pneumothorax, or focal pulmonary consolidation. No acute osseous abnormality.
--- NOTE | 2025-05-13 08:46 | W.ED.EXTPRO ---
HPI - Extremity Problem General: Chief complaint: Extremity Problem,Nontraumatic Stated complaint: fever; chace le cellulitis Time Seen by Provider: 05/13/25 08:34 History of Present Illness: 59-year-old male presents emergency room with fever complaining of pain and discomfort bilateral in his legs he is also tachycardic and mildly hypoxic. He is some chest discomfort and shortness of breath. He had listed as stated complaint is having bilateral lower extremity cellulitis however he does not appear to have clinically have a cellulitis in his lower extremities. He has known history of atrial fibrillation he states he did take all of his medicines yesterday does not think he took any of his medicines this morning he is on Eliquis 5 mg twice daily. Denies any recent cough, productive cough hemoptysis. No recurrent episodes of chest pain. No changes in his medications recently. Associated symptoms: Reports chest pain and fever(s); Deny rash Related Data Home Medications ?Medication ?Instructions ?Recorded ?Confirmed semaglutide 1 mg/dose (4 mg/3 mL) 1 mg SUBCUT Q7D 03/15/25 05/14/25 subcutaneous pen injector (Ozempic) Previous Rx's ?Medication ?Instructions ?Recorded atorvastatin 40 mg tablet 40 mg PO DAILY #90 tabs 05/07/22 apixaban 5 mg tablet (Eliquis) 5 mg PO BID@0900,2100 #30 tabs 05/15/25 cephalexin 500 mg capsule 500 mg PO Q6H 10 days #40 caps 05/15/25 cephalexin 500 mg capsule 500 mg PO QID 10 days #40 caps 05/15/25 diltiazem HCl 180 mg 180 mg PO DAILY #30 caps 05/15/25 capsule,extended release 24 hr, controlled (DILT-XR) itraconazole 100 mg capsule 200 mg (2 x 100 mg) PO BID #84 caps 05/15/25 ketoconazole 2 % topical cream 1 applic topical BID #60 grams 05/15/25 lisinopril 20 mg tablet 20 mg PO DAILY #30 tabs 05/15/25 melatonin 3 mg tablet 3 mg PO BEDTIME PRN sleep #90 tabs 05/15/25 metoprolol succinate 25 mg 25 mg PO DAILY #30 tabs 05/15/25 tablet,extended release 24 hr Allergies Allergy/AdvReac Type Severity Reaction Status Date / Time No Known Allergies Allergy Verified 03/18/23 18:20 Review of Systems Const: Reports: fever(s), chills, body aches, fatigue and malaise Card: Reports: chest pain and palpitations; Denies: edema or swelling of feet/ankles Resp: Reports: dyspnea; Denies: productive cough or hemoptysis GI: Denies: abdominal pain : Denies: dysuria, urinary frequency or urinary urgency Musc: Denies: neck pain or back pain Skin/Breast: Denies: rash PFSH ED PFSH: Medical History (Updated 05/17/25 @ 09:55 by Cade Ferro DO) Morbid obesity with BMI of 40.0-44.9, adult Onychomycosis Paroxysmal A-fib Diabetes mellitus WLOF on CPAP Essential (primary) hypertension Surgical History History of colonoscopy with polypectomy Family History Father , AGE 56 Myocardial infarct Social History Smoking and tobacco/nicotine status: former use of tobacco/nicotine Alcohol intake: never Physical Exam Const: GENERAL APPEARANCE: cooperative ORIENTATION/CONSCIOUSNESS: Yes awake, Yes oriented to person, Yes oriented to place and Yes oriented to time HENMT: COMMON NORMALS: normocephalic, atraumatic and hearing grossly normal bilaterally HEAD & SCALP: normocephalic and atraumatic Resp: COMMON NORMALS: normal respiratory effort, No retractions, No use of accessory muscles and clear to auscultation bilaterally AUSCULTATION: clear to auscultation bilaterally Cardio: COMMON NORMALS: regular rate, regular rhythm and No murmurs present (Cardio) RATE: regular rate RHYTHM: regular rhythm GI: COMMON NORMALS: Soft to palpation and No hepatosplenomegaly present AUSCULTATION: Yes normoactive bowel sounds PALPATION: Yes Soft to palpation, No Tenderness to palpation present (GI), No Guarding due to palpation present (GI) and Yes No hepatosplenomegaly present Extremity: COMMON NORMALS: normal to inspection, capillary refill normal, no clubbing, cyanosis or edema, no calf tenderness and no pedal edema Neuro: SENSORIUM/ORIENTATION: Yes oriented to person, Yes oriented to place and Yes oriented to time Skin: COMMON NORMALS: no rashes or lesions noted GENERAL SKIN EXAM: no rashes or lesions noted Course Vital Signs: Vital signs: Vital Signs Temperature 97.8 F 05/15/25 12:32 Pulse Rate 78 05/15/25 12:32 Respiratory Rate 19 H 05/15/25 11:39 Blood Pressure 102/67 05/15/25 12:32 Pulse Oximetry 90 05/15/25 12:55 Oxygen Delivery Me thod Nasal Cannula 05/15/25 07:51 Oxygen Flow Rate 2 05/14/25 20:54 Fraction of Inspir ed Oxygen 30 05/14/25 23:20 MDM - Extremity (Nontraumatic) Medical Decision Making Patient presents with a fever up to 100.2. EKGs reviewed as found in the chart . he also has A-fib with RVR in the 130s. We gave him his original medications and also gave him diltiazem IV push he slowed down for a time but he can begin to resume. He was then started on a drip his rate was controlled. His white count is mildly elevated there is concern of cellulitis but clinically does not have significant amount of redness in his legs. Will admit for rate control discussed with hospitalist orders written Lab Data 05/15/25 02:34 05/15/25 02:34 Radiology Impressions Chest X-Ray 05/13/25 08:50 IMPRESSION: No acute pulmonary finding. Abdomen/Pelvis CT 05/13/25 10:28 IMPRESSION: 1. Mild fatty infiltration of the liver. The liver has a slightly nodular contour suggestive of cirrhosis. 2. Few scattered colonic diverticula. 3. Please see above comments for additional details. Venous Duplex 05/13/25 16:59 IMPRESSION: No sonographic evidence of deep vein thrombosis. Laboratory Results WBC 15.24 10^3/uL (3.29-11.43) H 05/13/25 08:50 RBC 5.04 10^6/uL (3.85-5.65) 05/13/25 08:50 Hgb 15.80 g/dL (11.27-16.99) 05/13/25 08:50 Hct 46.2 % (37-53) 05/13/25 08:50 MCV 91.7 fl (82-101) 05/13/25 08:50 MCH 31.3 pg (27-33) 05/13/25 08:50 MCHC 34.2 g/dL (30-55) 05/13/25 08:50 RDW 11.9 % (12.1-15.1) L 05/13/25 08:50 Plt Count 154 10^3/cmm (157-399) L 05/13/25 08:50 MPV 9.7 fL (7.4-10.4) 05/13/25 08:50 Neut % (Auto) 90.7 % 05/13/25 08:50 Lymph % (Auto) 3.7 % 05/13/25 08:50 [place] % (Auto) 3.8 % 05/13/25 08:50 Eos % (Auto) 1.0 % 05/13/25 08:50 Baso % (Auto) 0.3 % 05/13/25 08:50 Neut # (Auto) 13.82 10^3/uL (1.8-7.7) H 05/13/25 08:50 Lymph # (Auto) 0.6 10^3/uL (0.8-4.8) L 05/13/25 08:50 [place] # (Auto) 0.6 10^3/uL (0.2-0.9) 05/13/25 08:50 Eos # (Auto) 0.2 10^3/uL (0.0-0.8) 05/13/25 08:50 Baso # (Auto) 0.1 10^3/uL (0.0-0.1) 05/13/25 08:50 Nucleated RBC % (auto) 0 % 05/13/25 08:50 Nucleated RBCs # 0.0 /100WBC 05/13/25 08:50 Specimen Type Arterial 05/13/25 08:57 Sample Site Radial, right 05/13/25 08:57 ABG pH 7.50 (7.35-7.45) H 05/13/25 08:57 ABG pCO2 29.5 mmHg (35-45) L 05/13/25 08:57 ABG pO2 84.3 mmHg (80.0-100.0) 05/13/25 08:57 ABG PO2/FiO2 Ratio 301 05/13/25 08:57 ABG HCO3 23.0 mmol/L (22-26) 05/13/25 08:57 ABG O2 Saturation 94.6 05/13/25 08:57 ABG Base Excess 1.1 mmol/L (-2.0-2.0) 05/13/25 08:57 Edward Test Pos 05/13/25 08:57 A-a O2 Gradient 10.1 mmHg (5-10) H 05/13/25 08:57 Hematocrit 52.1 % (42-52) H 05/13/25 08:57 Hgb O2 Saturation 94.3 % (95-100) L 05/13/25 08:57 Carboxyhemoglobin 0.2 %THgb (0.4-20.1) L 05/13/25 08:57 Methemoglobin 0.2 % (0.4-1.5) L 05/13/25 08:57 Total Hemoglobin 17.0 g/dL (14-18) 05/13/25 08:57 Sodium 138.0 mmol/L (131-143) 05/13/25 08:57 Potassium 3.3 mmol/L (3.5-5.0) L 05/13/25 08:57 Glucose 177.0 mg/dL (70-115) H 05/13/25 08:57 Ionized Calcium 1.1 mmol/L (1.1-1.4) 05/13/25 08:57 O2 Delivery Device Nc 05/13/25 08:57 O2 Liters/Min 2.0 % 05/13/25 08:57 FiO2 28.0 % 05/13/25 08:57 Traveling Engineer ID glc 05/13/25 08:57 Sodium 135 mmol/L (136-145) L 05/13/25 08:50 Potassium 3.6 mmol/L (3.5-5.1) 05/13/25 08:50 Chloride 95 mmol/L (98-107) L 05/13/25 08:50 Carbon Dioxide 23 mmol/L (22-29) 05/13/25 08:50 Anion Gap 20.6 (5-19) H 05/13/25 08:50 BUN 16 mg/dL (8-23) 05/13/25 08:50 Creatinine 1.2 mg/dL (0.7-1.2) 05/13/25 08:50 GFR Calculation 61.6 mL/min (90-130) L 05/13/25 08:50 Glucose 174 mg/dL (65-115) H 05/13/25 08:50 POC Glucose 226 mg/dL (70-110) H 05/13/25 09:19 Calculated Osmolality 285 mOsm/kg (285-295) 05/13/25 08:50 Lactic Acid 1.6 mmol/L (0.5-2.2) 05/13/25 08:50 Calcium 9.5 mg/dL (8.5-10.5) 05/13/25 08:50 Total Bilirubin 1.0 mg/dL (0.15-1.2) 05/13/25 08:50 AST 13 U/L (0-40) 05/13/25 08:50 ALT 18 U/L (0-41) 05/13/25 08:50 Alkaline Phosphatase 56 U/L (40-130) 05/13/25 08:50 C-Reactive Protein 3.7 mg/L (0.0-4.9) 05/13/25 08:50 NT-Pro-B Natriuret Pep 50 pg/mL (0-125) 05/13/25 08:50 Total Protein 7.7 g/dL (6.6-8.7) 05/13/25 08:50 Albumin 4.5 g/dL (3.5-5.2) 05/13/25 08:50 Globulin 3.2 g/dL (1.3-4.6) 05/13/25 08:50 Lipase 21 U/L (13-60) 05/13/25 08:50 Procalcitonin 0.18 ng/mL (0-0.5) 05/13/25 08:50 TSH 1.16 uIU/mL (0.27-4.20) 05/13/25 08:50 Free T4 0.83 ng/dL (0.82-1.77) 05/13/25 08:50 Urine Color Yellow (Yellow) 05/13/25 08:40 Urine Appearance Clear (CLEAR) 05/13/25 08:40 Urine pH 5.0 (5-7) 05/13/25 08:40 Ur Specific [place] 1.035 (1.005-1.030) H 05/13/25 08:40 Urine Protein Negative (Negative) 05/13/25 08:40 Urine Glucose (UA) 1+ (Normal) H 05/13/25 08:40 Urine Ketones 1+ (Negative) H 05/13/25 08:40 Urine Blood Negative (Negative) 05/13/25 08:40 Urine Nitrate Negative (Negative) 05/13/25 08:40 Urine Bilirubin Negative (Negative) 05/13/25 08:40 Urine Urobilinogen 1.0 mg/dL (Negative) 05/13/25 08:40 Ur Leukocyte Esterase Negative (Negative) 05/13/25 08:40 Urine RBC 0-2 /hpf (0-2) 05/13/25 08:40 Urine WBC 0-5 /hpf (0-5) 05/13/25 08:40 Ur Squamous Epith Cells 0-5 /hpf (0-5) 05/13/25 08:40 Amorphous Sediment Not Reportable 05/13/25 08:40 Urine Bacteria None seen /hpf (NONE) 05/13/25 08:40 Hyaline Casts 0-4 /lpf H 05/13/25 08:40 Influenza A (PCR) Negative (Negative) 05/13/25 09:33 Influenza Type B (PCR) Negative (Negative) 05/13/25 09:33 RSV (PCR) Negative (Negative) 05/13/25 09:33 SARS-CoV-2 (PCR) Negative (Negative) 05/13/25 09:33 All radiology interpretation(s) finalized by discharge Discharge Plan Discharge Patient Disposition: Admitted As Inpatient Admit Provider: Carol Street Clinical Impression: Atrial fibrillation with RVR, Fever, Leukocytosis, Diabetes mellitus Condition: Stable Discharge Diet: Diabetic Coding Level of Care Code ED Oiler Helper for Rosalinda Ornelas
--- NOTE | 2025-05-13 08:50 | XRR_ITS ---
PROCEDURE INFORMATION: Exam: XR Chest Exam date and time: 05/13/2025 8:52 AM Age: 59 years old Clinical indication: Shortness of breath; Additional info: Dyspnea/cough TECHNIQUE: Imaging protocol: Radiologic exam of the chest. Views: 1 view. COMPARISON: CR XR chest 1V portable [id number] 03/15/2025 11:36 AM FINDINGS: Lungs: The pulmonary vessels are within normal limits. The lungs are clear. Pleural spaces: No pneumothorax. Heart/Mediastinum: The cardiomediastinal silhouette is within normal limits. Bones/joints: Osseous structure is unremarkable. XR/XR chest 1V portable [id number] IMPRESSION: No acute pulmonary finding.
[2025-05-13 08:53] LABS: Glucose Urine UA 1+ (Normal); Nitrate Urine Negative (Negative)
[2025-05-13 08:58] LABS: Add Urine Microscopic? YES
--- NOTE | 2025-05-13 09:00 | ECG_ITS ---
[employer] Test Date: 2025-05-13 Pat Name: Fan Simpson Department: Room: 101 Gender: Male Cupola Melter: : 1965 Requested By: Carol Street Order Number: [id number] Reading MD: Measurements Intervals [place] Rate: 140 P: 0 MT: 0 QRS: -45 QRSD: 149 T: 101 QT: 318 QTc: 486 Interpretive Statements ATRIAL FIBRILLATION WITH RAPID VENTRICULAR RESPONSE LEFT AXIS DEVIATION [QRS AXIS < -30] LEFT BUNDLE BRANCH BLOCK [120+ ms QRS DURATION, 80+ ms Q/S IN V1/V2, 85+ ms R IN I/aVL/V5/V6] Compared to ECG 03/15/2025 13:45:12 No significant changes [id number]
[2025-05-13 09:01] LABS: Specific Gravity, Urine 1.035 (1.005-1.030)
[2025-05-13 09:02] LABS: Hematocrit 46.2 % (37-53); Hemoglobin 15.80 g/dL (11.27-16.99); Mean Corpuscular HGB Conc 34.2 g/dL (30-55); Mean Corpuscular Hemoglobin 31.3 pg (27-33); Mean Corpuscular Volume 91.7 fl (82-101); Nucleated Red Blood Cells % 0 %; Platelet Count 154 10^3/cmm (157-399); Red Blood Count 5.04 10^6/uL (3.85-5.65); White Blood Count 15.24 10^3/uL (3.29-11.43)
[2025-05-13] MEDS: dilTIAZem ER (24HR) 180 mg Capsule PO (09:07)
[2025-05-13] MEDS: dilTIAZem 5 mg/mL SDV 5 mL 10 MG IVP (09:07)
[2025-05-13 09:09] LABS: ABG PCO2 29.5 mmHg (35-45); ABG PH Result 7.50 (7.35-7.45); Alveolar-Arterial Oxygen Gradi 10.1 mmHg (5-10); Arterial Blood Gas Hematocrit 52.1 % (42-52); Blood Gas Allen Test Pos; Blood Gas LPM 2.0 %; Blood Gas Operator Identificat glc; Blood Gas Sample Site Radial, right; Blood Gas Sample Type Arterial; Carboxyhemoglobin 0.2 %THgb (0.4-20.1); Glucose Level-ABG 177.0 mg/dL (70-115); HCO3 ABG 23.0 mmol/L (22-26); Ionized Calcium Level - ABG 1.1 mmol/L (1.1-1.4); Methemoglobin 0.2 % (0.4-1.5); Oxygen Saturation ABG 94.6; PO2 ABG 84.3 mmHg (80.0-100.0); PO2 FiO2 Ratio Arterial Blood 301; Potassium Level - ABG 3.3 mmol/L (3.5-5.0); Sodium Level - ABG 138.0 mmol/L (131-143)
[2025-05-13 09:17] LABS: Lactic Sepsis W/Reflex 1.6 mmol/L (0.5-2.2)
--- NOTE | 2025-05-13 09:20 | PC.NURSE ---
BG 226, pt also states that he has not been taking his Ozempic recently.
[2025-05-13 09:28] LABS: Alanine Aminotransferase 18 U/L (0-41); Albumin Level 4.5 g/dL (3.5-5.2); Alkaline Phosphatase 56 U/L (40-130); Anion Gap 20.6 (5-19); Aspartate Amino Transferase 13 U/L (0-40); Blood Urea Nitrogen 16 mg/dL (8-23); Calcium 9.5 mg/dL (8.5-10.5); Carbon Dioxide 23 mmol/L (22-29); Chloride 95 mmol/L (98-107); Creatinine Clr Calc Pharmacy 85.2381; Globulin 3.2 g/dL (1.3-4.6); Glucose 174 mg/dL (65-115); Lipase 21 U/L (13-60); NT Pro B Type Natriuretic Pept 50 pg/mL (0-125); Osmolality Calculated 285 mOsm/kg (285-295); Potassium 3.6 mmol/L (3.5-5.1); Sodium 135 mmol/L (136-145); Total Protein 7.7 g/dL (6.6-8.7)
[2025-05-13] MEDS: levofloxacin-dextrose 5 % 750 MG/150 ML PREMIX 100 MG IV (09:48)
[2025-05-13 10:25] LABS: Respiratory Syncytial Virus Ce NEGATIVE (Negative); SARS-CoV-2 PCR NEGATIVE (Negative)
--- NOTE | 2025-05-13 10:28 | CTR_ITS ---
PROCEDURE INFORMATION: Exam: CT Abdomen And Pelvis With Contrast Exam date and time: 05/13/2025 10:47 AM Age: 59 years old Clinical indication: Abdominal pain; Additional info: Abd pain TECHNIQUE: Imaging protocol: Computed tomography of the abdomen and pelvis with contrast. Radiation optimization: All CT scans at this facility use at least one of these dose optimization techniques: automated exposure control; mA and/or kV adjustment per patient size (includes targeted exams where dose is matched to clinical indication); or iterative reconstruction. Contrast material: OMNI 350; Contrast volume: 100 ml; Contrast route: INTRAVENOUS (IV); COMPARISON: CR XR chest 1V portable [id number] 05/13/2025 8:52 AM RADIATION DOSE METRICS: Total DLP (mGy-cm): 1173.86 FINDINGS: Lungs: Lung bases are clear as visualized. Diaphragm: There may be a small hiatal hernia. Liver: There is minimal fatty infiltration of the liver. There is a slightly nodular contour to the liver suggestive of cirrhosis. The liver is otherwise normal. Gallbladder and biliary ducts: Normal. No calcified stones. No ductal dilation. Pancreas: Normal. No ductal dilation. Spleen: Normal. No splenomegaly. Adrenal glands: Normal. No mass. Kidneys and ureters: Normal. No hydronephrosis. Stomach and bowel: There are a few scattered colonic diverticula. No bowel wall thickening is noted. No dilated loops of bowel are appreciated. Appendix: No evidence of appendicitis. Intraperitoneal space: Unremarkable. No free air. No significant fluid collection. Vasculature: The aorta is normal in caliber. There is calcified plaque involving the aorta and its branch vessels. Lymph nodes: There are multiple small as well as borderline enlarged distal iliac chain and inguinal lymph nodes. Urinary bladder: Unremarkable as visualized. Reproductive: Unremarkable as visualized. Bones/joints: Unremarkable. No acute fracture. Soft tissues: There is a tiny fat filled periumbilical hernia. CT/CT abdomen pelvis w con* [id number] IMPRESSION: 1. Mild fatty infiltration of the liver. The liver has a slightly nodular contour suggestive of cirrhosis. 2. Few scattered colonic diverticula. 3. Please see above comments for additional details.
--- NOTE | 2025-05-13 10:30 | USCV_ITS ---
TatianaFan Age: 59 Gender: M : 1965 Exam Date: 05/13/2025 18:24 Ordering Phys: Carol Street MD Technologist: José Antonio Hernandez Exam Location: [facility] Indication: afib with rvr BP: 126 / 72 HR: 99 Rhythm: Sinus Technical Quality: Adequate MEASUREMENTS (Male / Female) Normal Values 2D ECHO LV Diastolic Diameter PLAX 5.3 cm 4.2 - 5.9 / 3.9 - 5.3 cm IVS Diastolic Thickness 1.3 cm 0.6 - 1.0 / 0.6 - 0.9 cm IVS Systolic Thickness 1.2 cm LVPW Diastolic Thickness 1.4 cm 0.6 - 1.0 / 0.6 - 0.9 cm LVPW Systolic Thickness 2.2 cm LVOT Diameter 2.2 cm LV Ejection Fraction 2D Teich 61.6 % LV Ejection Fraction MOD 4C 55.4 % LV Ejection Fraction MOD 2C 53.6 % LV Ejection Fraction 2C AL 55.5 % LA Diameter 3.9 cm RA Systolic Volume 4C AL 53.7 ml RA Systolic Volume 4C MOD 53.3 ml LA Sys Volume AL 42.1 cm cubed LA Sys Volume Index AL 18.5 cm cubed/m squared Aorta at Sinotubular Diameter 2.7 cm IVC Diameter 1.9 cm M-MODE LA Ao Ratio MM 1.2 AV Cusp Separation MM 2.0 cm DOPPLER AV Peak Velocity 176.0 cm/s LVOT Peak Velocity 123.0 cm/s AV Area Cont Eq vti 2.5 cm squared AV Area Cont Eq pk 2.6 cm squared MV Peak Velocity 117.0 cm/s MV Area PHT 9.5 cm squared Mitral E to A Ratio 0.7 TV Peak Velocity 128.3 cm/s TR Peak Velocity 144.0 cm/s TR Peak Gradient 8.3 mmHg TR Mean Velocity 124.0 cm/s TR Mean Gradient 6.3 mmHg TR Velocity Time Integral 24.8 cm PV Peak Velocity 141.0 cm/s RV Ejection Time 0.2 s FINDINGS Left Ventricle Normal left ventricular size, systolic function and wall thickness, with no regional wall motion abnormalities. Left ventricular ejection fraction is estimated at 60 %. Grade I/IV diastolic dysfunction (abnormal relaxation filling pattern), normal to mildly elevated filling pressures. Right Ventricle The right ventricle is normal in size and function. Right Atrium The right atrium is normal in size. Left Atrium The left atrium is normal in size. Mitral Valve Structurally normal mitral valve without significant stenosis or prolapse. There is no mitral regurgitation. Aortic Valve Moderate aortic valve calcification. Aortic valve sclerosis without stenosis or regurgitation. Tricuspid Valve Structurally normal tricuspid valve without significant stenosis or regurgitation. Pulmonary artery systolic pressure is normal. Pulmonic Valve Structurally normal pulmonic valve without significant stenosis. There is no pulmonic regurgitation. Pericardium Normal pericardium without effusion. Aorta Normal ascending aorta dimension. IVC The inferior vena cava appears normal. CONCLUSIONS Normal left ventricular size, systolic function and wall thickness, with no regional wall motion abnormalities. Left ventricular ejection fraction is estimated at 60 %. Grade I/IV diastolic dysfunction (abnormal relaxation filling pattern), normal to mildly elevated filling pressures. Moderate aortic valve calcification. Aortic valve sclerosis without stenosis or regurgitation. There is no pericardial effusion. Right atrial pressure is around 5 mm of mercury. Baron Nails MD (Electronically Signed) Final Date: 13 May 2025 22:23 S
[2025-05-13] MEDS: dilTIAZem 100 MG in sodium chloride 0.9% (add-van) 100 ML IV (10:43)
[2025-05-13] MEDS: iohexol 350 mg/mL 500 mL Btl (per mL) IV (10:51)
[2025-05-13 11:03] LABS: Free T4 Free Thyroxine 0.83 ng/dL (0.82-1.77); Thyroid Stimulating Hormone 1.16 uIU/mL (0.27-4.20)
[2025-05-13 11:06] LABS: Procalcitonin 0.18 ng/mL (0-0.5)
--- NOTE | 2025-05-13 13:58 | PM.HP ---
Providers/Chief Complaint Admitting Physician: Carol Street MD Primary Care Provider: Kevin Duenas MD Chief Complaint: fever; chace le cellulitis History of Present Illness Fan Simpson is a 59 year old male with hypertension, hyperlipidemia, DM2, atrial fibrillation, and WOLF on CPAP presenting with fever, leg pain and erythema, chest pain, and shortness of breath. He thought that he had cellulitis of his legs but clinically did not appear to have that. He reported if temperature of 100.2 at home. He also reported nausea but no vomiting or diarrhea. He denies any cough. He was afebrile in the ED but was in A-fib with RVR to the 130s. He remained tachycardic despite getting his oral diltiazem dose and then an additional IV bolus of diltiazem. He has been started on a diltiazem drip. He has been taking his apixaban twice a day. His troponin was normal x 2. His WBC was elevated. Lactic acid and procalcitonin were normal. Chest x-ray did not show any acute pulmonary findings. Review of Systems General: Reports: 10 or more systems reviewed and unremarkable except in HPI and below Medications/Allergies Home Medications ?Medication ?Instructions ?Recorded ?Confirmed ?Last Taken ?Type apixaban 5 mg tablet (Eliquis) 5 mg PO BID #180 tabs 05/07/22 03/15/25 03/15/25 Rx atorvastatin 40 mg tablet 40 mg PO DAILY #90 tabs 05/07/22 03/15/25 03/15/25 Rx diltiazem HCl 180 mg capsule,24 180 mg PO DAILY #90 caps 05/07/22 03/15/25 03/15/25 Rx hr,extended release empagliflozin 25 mg tablet 25 mg PO DAILY #90 tabs 05/07/22 03/15/25 03/15/25 Rx (Jardiance) chlorthalidone 25 mg tablet 25 mg PO DAILY 03/15/25 03/15/25 03/15/25 History lisinopril 40 mg tablet 40 mg PO DAILY 03/15/25 03/15/25 03/15/25 History metoprolol succinate 25 mg 25 mg PO DAILY 03/15/25 03/15/25 03/15/25 History tablet,extended release 24 hr semaglutide 1 mg/dose (4 mg/3 mL) 1 mg SUBCUT Q7D 03/15/25 03/15/25 Unknown History subcutaneous pen injector (Ozempic) Allergies Allergy/AdvReac Type Severity Reaction Status Date / Time No Known Allergies Allergy Verified 03/18/23 18:20 PFSH Acute PFSH: Medical History (Updated 05/13/25 @ 14:[address] MD) Paroxysmal A-fib Diabetes mellitus WOLF on CPAP Essential (primary) hypertension Surgical History History of colonoscopy with polypectomy Family History Father , AGE 56 Myocardial infarct Social History Smoking and tobacco/nicotine status: former use of tobacco/nicotine Alcohol intake: never Vitals/I&O/Wt Last Vital Signs Temp 99.1 F 05/13/25 12:58 Pulse 116 H 05/13/25 12:50 Resp 23 H 05/13/25 12:50 BP 126/80 05/13/25 12:50 Pulse Ox 90 05/13/25 12:55 O2 Del Method Room Air 05/13/25 12:55 05/12/25 05/13/25 05/13/25 22:59 06:59 14:59 Intake Total 995.583 / 995.583 Output Total 150 / 150 Balance 845.583 / 845.583 Weight last 48 hrs Weight 57.153 kg Weight 127.006 kg Physical Exam Narrative: GEN: Alert, no acute distress HEENT: Normocephalic, atraumatic, PERRLA Neck: Supple Respiratory: Normal effort, clear to auscultation bilaterally Cardio: Tachycardic, irregular rhythm, S1, S2, no murmur Abdomen: Soft, nontender, nondistended, normal active bowel sounds Extremity, warm, no edema Skin: Onychomycosis, interdigital fissures between 1st and 2nd toes of both feet. Hyperkeratosis sides and plantar aspect of both feet with scaling Data 05/13/25 08:50 05/13/25 08:50 Micro: Microbiology 05/13/25 08:47 Blood Culture - Preliminary Blood SPECIMEN COLLECTED 05/13/25 08:50 Blood Culture - Preliminary Blood SPECIMEN COLLECTED A&P Assessment and plan (1) Paroxysmal atrial fibrillation with RVR: Continue diltiazem infusion Start oral diltiazem in the a.m. if rate controlled Continue oral metoprolol Continue apixaban Echocardiogram ordered Telemetry monitoring (2) Leukocytosis: No evidence of acute bacterial infection. Lactic acid and procalcitonin normal He does not have cellulitis but does appear to have tinea pedis (3) Tinea pedis: Started clotrimazole Outpatient podiatry referral (4) Diabetes mellitus: Type 2 diabetes mellitus Carbohydrate consistent diet Sliding scale insulin (5) Essential (primary) hypertension: Monitor blood pressure (6) WOLF on CPAP: CPAP nightly (7) Difficulty in walking: PT and OT consults PDMP PDMP Reviewed: Not Reviewed Attestations Medical Necessity Statement*: Patient admitted observation for diltiazem drip. Anticipate discharge tomorrow if heart rate is controlled Coding Level of Care Code 79798 Diagnoses Paroxysmal atrial fibrillation with RVR I48.0 Leukocytosis D72.829 Tinea pedis B35.3 Diabetes mellitus E11.9 Essential (primary) hypertension I10 WOLF on CPAP G47.33; Z99.89 Difficulty in walking R26.2
--- NOTE | 2025-05-13 16:59 | USR_ITS ---
PROCEDURE INFORMATION: Exam: US Duplex Right Lower Extremity Veins, Limited Exam date and time: 05/13/2025 5:42 PM Age: 59 years old Clinical indication: Other: Redness, tingling and warmth sensation on right leg TECHNIQUE: Imaging protocol: Real-time duplex ultrasound of the right extremity with 2-D briscoe scale, color Doppler flow and spectral waveform analysis including responses to compression and other maneuvers (when performed) with image documentation. Limited exam was focused on the right lower extremity veins. COMPARISON: CT abdomen pelvis w con* [id number] 05/13/2025 10:47 AM FINDINGS: Right deep veins: Unremarkable. The common femoral, femoral, proximal profunda femoral, popliteal, posterior tibial and peroneal veins are patent without thrombus. Normal Doppler waveforms. Normal compressibility and/or augmentation response. Superficial veins: Greater saphenous vein at the saphenofemoral junction is patent without thrombus. Soft tissues: Unremarkable. US/[place] [id number] IMPRESSION: No sonographic evidence of deep vein thrombosis.
--- NOTE | 2025-05-13 17:00 | PC.NURSE ---
reports of warmth and tingling sensation on right leg and pain on right groin. Inspected pt right leg and redness noted from above ankle to below knee. warmth to touch, pedal pulses are palpable. notified doctor, order for Venous duplex on right leg.
[2025-05-13] MEDS: cefTRIAXone 1,000 mg SDV 1000 MG IVP (17:59)
[2025-05-13] MEDS: dilTIAZem 100 MG in sodium chloride 0.9% (add-van) 100 ML 12.5 MG IV (21:06)
[2025-05-14] VITALS (19 sets, daily range): BP systolic 107–131; BP diastolic 56–74; PULSE 68–92; RESP 11–24; TEMP 36.4–37.1; O2SAT 89–96
--- NOTE | 2025-05-14 01:40 | PC.NURSE ---
2100- Patient complaining of pain in back, per MAR patient could have morphine or tylenol. Patient states that tylenol didn't work earlier and morphine makes him sick. Patient requesting tramadol dose he takes at home. Notified Dr. Emerson that patient would like 100 mg tramadol that he takes at home. Received orders to give 100 mg of tramadol once. Also let Dr. Emerson know that patient had converted to NSR upon arrival to shift. When investigating further patient was found to have converted at 1536. Per MD louie baker protocol. 2330- Patient requesting cpap machine as family did not bring his fom home. Notified Dr. emerson and received orders for bipap.
[2025-05-14 04:02] LABS: Hematocrit 44.2 % (37-53); Hemoglobin 15.10 g/dL (11.27-16.99); Mean Corpuscular HGB Conc 34.2 g/dL (30-55); Mean Corpuscular Hemoglobin 31.9 pg (27-33); Mean Corpuscular Volume 93.4 fl (82-101); Nucleated Red Blood Cells % 0 %; Platelet Count 133 10^3/cmm (157-399); Red Blood Count 4.73 10^6/uL (3.85-5.65); White Blood Count 13.68 10^3/uL (3.29-11.43)
[2025-05-14 04:04] LABS: Albumin Level 4.0 g/dL (3.5-5.2); Anion Gap 16.3 (5-19); Blood Urea Nitrogen 18 mg/dL (8-23); Calcium 9.2 mg/dL (8.5-10.5); Carbon Dioxide 25 mmol/L (22-29); Chloride 96 mmol/L (98-107); Creatinine Clr Calc Pharmacy 84.6873; Glucose 125 mg/dL (65-115); Magnesium 1.9 mg/dL (1.7-2.3); Potassium 3.3 mmol/L (3.5-5.1); Sodium 134 mmol/L (136-145)
--- OUTSIDE RECORDS SUMMARY | 2025-05-14 05:58 | XMS_ITS | Clinical Summary ---
Author Organization [facility] Address [address] [place] [address] Phone Care Team Providers Care Bus Person Dishwasher Name Role Phone Unavailable Primary Care Provider [...] (1 - 1-dose 75+ series) 2038 Insurance [facility] PREFERRED
--- OUTSIDE RECORDS SUMMARY | 2025-05-14 05:58 | XMS_ITS ---
Author Organization Unknown Address [address] [place], [place] [id number] Phone Care Team Providers Care Preparation Plant Repairer Name Role Phone DOYLE MARINO MD Attending Unavailable Results B-TYPE NATRIURETIC PEPTIDE - Collect Date/Time: 07/31/2024 18:07 [facility] ID: [id number] [address] [place] [address], [phone] LOINC: 75087-2 Test Value Unit Reference Range Code Code System Flag BNP 263 pg/mL L=0 H=100 H COMPREH METAB PANEL - Collec t Date/Time: 07/31/2024 18:07 [facility] ID: [id number] [address] [place] [address], [phone] LOINC: 05012-2 Test Value Unit Reference Range Code Code [...] PLASMA - Collec t Date/Time: 07/31/2024 18:07 [facility] ID: [id number] [address] [place], [place], [phone] LOINC: 2524-7 Test Value Unit Reference Range Code Code System Flag LACTIC ACID 2.8 mmol/L L=0.4 H=2.0 HH MAGNESIUM - Collect Date/Kamaljit e: 07/31/2024 18:07 [facility] ID: [id number] [address] [place] [address], [phone] LOINC: 87521-5 Test Value Unit Reference Range Code Code System Flag MAGNESIUM 1.5 mg/dL L=1.8 H=2.4 L CBC - Collect Date/Time: 18:07 [facility] ID: [id number] [address] [place] [address], [phone] LOINC: 06038-1 Test Value Unit Reference Range Code Code System Flag WBC 20.7 K/uL L=3.7 H=10.5 92098-6 LOINC RBC 5.18 M/uL L=4.50 H=6.20 HEMOGLOBIN 16.2 [...] NORMAL PT/PTT - Collect Date/Time: 07/31/2024 18:07 [facility] ID: [id number] [address] [place] [address], [phone] LOINC: Test Value Unit Reference Range Code Code System Flag PROTIME 15.6 Secs L=9.4 H=12.5 76284-8 LOINC H INR 1.36 L=1.00 H=4.00 PTT 36.6 Secs L=25.1 H=36.5 76111-1 LOINC H TROPONIN I - Collect Date/Ti me: 07/31/2024 18:07 [facility] ID: [id number] [address] [place] [address], [phone] LOINC: 28250-8 Test Value Unit Reference Range Code Code System Flag TROPONIN I 0.051 ng/mL L=0.000 H=0.030 HH GENE XPRT SARS COV-2_FLU_RSV PLUS PCR - Collect Date/Time: 07/31/2024 18:05 [facility] ID: [id number] [address] [place] [address], [phone] LOINC: 81949-4 Test Value Unit Reference Range Code Code System Flag SARS CoV-2 NEGATIVE NORMAL: Negative 33854-1 LOINC INFLUENZA A NEGATIVE NORMAL: Negative 43501-3 LOINC INFLUENZA B NEGATIVE NORMAL: Negative 59466-3 LOINC RSV NEGATIVE NORMAL: Negative 56839-7 LOINC [place]? [place] [address]-5 LOINC CHEST PA&LAT - Completed: 19:00 LOINC: \TM00\12PI\DRAo\BM09\PGN O\MRB2\ [place] [address] ---------NAME--------- NUMBER SEX AGE ADMIT DISC. XRAY# F/C TYPE ISABELLE SANCHEZ [id number] M 58 07/31/24 [id number] LAURA E.R. DATE OF : 1965 M/R# [id number] PH#: [phone] ER-03 \MRx\ LOCATION: TRANSCRIBED: 07/31/24 19:21 CHEST PA&LAT [id number] COMPLETED:07/31/24 19:00 [place] [id number] REASON FOR STUDY: Shortness of Breath PHYSICIAN: [...] Personal Care Team Section Imaging Narrative Notes [facility] \TM00\12PI\DRAo\BM09\PGNO\MRB2\ [place] [address] ---------NAME--------- NUMBER SEX AGE ADMIT DISC. XRAY# F/C TYPE ISABELLE SANCHEZ [id number] M 58 07/31/24 [id number] LAURA Card DATE OF : 1965 M/R# [id number] #: [phone] [id number]-03 \MRHx\ LOCATION: TRANSCRIBED: 07/31/24 19:21 CHEST PA&LAT [id number] COMPLETED:07/31/24 19:00 [place] [id number] REASON FOR STUDY: Shortness of Breath PHYSICIAN: DOYLE ANGEL BE R A D I O L O G Y R E P O R T INDICATION: SHORTNESS OF BREWATH EXAM/TECHNIQUE: Two-view chest COMPARISON: No prior exam available for comparison. DISCUSSION: See impression. No pleural effusion, pneumothorax, or focal pulmonary consolidation. No acute osseous abnormality.
[2025-05-14] MEDS: metoprolol succinate ER (24 HR) 25 mg Tablet PO (08:12)
[2025-05-14] MEDS: ondansetron 2 mg/ML SDV 2 mL 4 MG IVP ×2 (08:54→19:30)
[2025-05-14] MEDS: morphine 4 mg/mL SDV 1 mL 2 MG IVP ×2 (08:54→19:30)
--- NOTE | 2025-05-14 10:07 | PC.CHAP ---
Pastoral Care Encounter/Spiritual Assessment Type of Contact [] Declined roller shop supervisor visit [] Patient/Family/Request visit [] Outpatient visit [] Follow-up visit [] Physician referral [] Code/Alert [] Routine visit [] Staff referral [] Actively dying [] Patient sleeping [] Family support [] [] Out of room [] Palliative care [] [] Receiving care in room [] Pre-surgical visit [] Trauma [] Long length of stay [] ICU visit [] Other: Relational/Emotional Strength [] Patient feels connected with others/family/visitors/staff [] Distress [] Loneliness/isolation [] Abandonment Spirituality of Patient [] Person of Rachna [] Attends Methodist of their Rachna [] Believes in Prayer [] Reads Bible or Jainism materials [] There are Spiritual issues to be addressed Helper Driver Interventions [] Prayer [] Active listening [] Non-anxious presence [] Spiritual/emotional support [] Crisis/trauma care [] Spiritual counseling [] Bereavement support [] Provided bereavement packet [] Provided Bible/devotional materials [] Provided toy/stuffed animal, coloring book to patient or family member [] Provided Communion [] Anointing/[place] [] Salvation [] Completed spiritual assessment [] Other: Impact on Illness or Injury [] Angry [] Fearful [] Anxious [] Often cries [] Exhaustion [] Unable to work [] Unable to attend samaritan [] Unable to walk/stand [] Unable to read [] Unable to drive [] Unable to eat/drink [] Unable to sleep [] Unable to be with family [] Patient intubated [] Other: Summary Time spent with patient
--- NOTE | 2025-05-14 10:09 | PC.CHAP ---
Pastoral Care Encounter/Spiritual Assessment Type of Contact [] Declined napper runner visit [] Patient/Family/Request visit [] Outpatient visit [] Follow-up visit [] Physician referral [] Code/Alert [x] Routine visit [] Staff referral [] Actively dying [] Patient sleeping [] Family support [] [] Out of room [] Palliative care [] [x] Receiving care in room [] Pre-surgical visit [] Trauma [] Long length of stay [] ICU visit [] Other: Relational/Emotional Strength [] Patient feels connected with others/family/visitors/staff [] Distress [] Loneliness/isolation [] Abandonment Spirituality of Patient [] Person of Rachna [] Attends Samaritan of their Rachna [] Believes in Prayer [] Reads Bible or Taoist materials [] There are Spiritual issues to be addressed Dog Food Dough Mixer Interventions [x] Prayer [] Active listening [] Non-anxious presence [] Spiritual/emotional support [] Crisis/trauma care [] Spiritual counseling [] Bereavement support [] Provided bereavement packet [] Provided Bible/devotional materials [] Provided toy/stuffed animal, coloring book to patient or family member [] Provided Communion [] Anointing/[place] [] Salvation [] Completed spiritual assessment [] Other: Impact on Illness or Injury [] Angry [] Fearful [] Anxious [] Often cries [] Exhaustion [] Unable to work [] Unable to attend latter-day [] Unable to walk/stand [] Unable to read [] Unable to drive [] Unable to eat/drink [] Unable to sleep [] Unable to be with family [] Patient intubated [] Other: Summary Time spent with patient
--- NOTE | 2025-05-14 11:14 | P.PN_ITS ---
Subjective 2 Subjective: 59-year-old male with A-fib is chronically on apixaban. He reports fevers and right leg pain evidencing cellulitis. Patient has had cellulitis in both legs on occasion since 2016. Patient reports thickened ongoing mycotic nails that he trims himself reports the infection started between his toes and the cracks. Patient states he had temperature to 101 at home. He is no longer having fevers here. He has had right posterior calf pain and still hurts currently patient states he trims his own nails at home and frequently and has had cellulitis of both feet at times. Patient has diabetes and A1c of 9.5 last documented 2019 in our record. He takes semaglutide 1 mg subcu weekly. Vitals/I&O/Wt Last Vital Signs Temp 97.8 F 05/14/25 07:44 Pulse 79 05/14/25 07:44 Resp 19 H 05/14/25 08:54 BP 131/69 05/14/25 07:44 Pulse Ox 94 05/14/25 08:54 O2 Del Method Room Air 05/14/25 07:44 FiO2 21 05/14/25 06:08 05/13/25 05/14/25 05/14/25 22:59 06:59 14:59 Intake Total 1444.667 / 2440.250 50.833 / 2491.083 1000 / 1000 Output Total 1450 / 1600 300 / 1900 850 / 850 Balance -5.333 / 840.250 -249.167 / 591.083 150 / 150 Weight last 48 hrs Weight 125.5 kg Weight 57.153 kg Weight 127.006 kg Physical Exam 2 Narrative: General well-developed well-nourished obese male in no acute cardiopulmonary distress CV rhythm irregular but rate is controlled Lungs clear to auscultation bilaterally Abdomen positive bowel sounds soft Calves trace right pretibial edema minimal compared to left which has not There is erythema and some edema in the right foot and calf which has been outlined in ink and dated showing recession from the borders marked Feet thickened onychomycotic nails hypertrophic. There is yellow buildup and cracks between toes of his right hallux and second toe Data 05/14/25 02:00 05/14/25 02:00 Micro: Microbiology 05/13/25 08:47 Blood Culture - Preliminary Blood NEGATIVE TO DATE 05/13/25 08:50 Blood Culture - Preliminary Blood NEGATIVE TO DATE A&P Assessment and plan (1) Cellulitis of right lower extremity: Continue Rocephin but will increase dose to 1000 mg twice a day. If white count not dropping will cover for possible staph as opposed to strep (2) Paroxysmal atrial fibrillation with RVR: Wean off diltiazem drip Resume diltiazem CD1 180 mg daily now Continue oral metoprolol 25 mg XL daily Continue apixaban Echocardiogram Normal left ventricular size, systolic function and wall thickness, with no regional wall motion abnormalities. Left ventricular ejection fraction is estimated at 60 %. Grade I/IV diastolic dysfunction (abnormal relaxation filling pattern), normal to mildly elevated filling pressures. Moderate aortic valve calcification. Aortic valve sclerosis without stenosis or regurgitation. There is no pericardial effusion. Right atrial pressure is around 5 mm of mercury. Telemetry monitoring (3) Tinea pedis: I am going to start itraconazole 200 mg twice a day for 1 week a month for 3 months and I called Dr. Centeno. Patient has severe onychomycosis as a source of his cellulitis. Will appreciate debridement of the nails and thickened skin between the toes. Patient will establish care for ongoing footcare to prevent recurring cellulitis (4) Onychomycosis: Itraconazole 200 mg twice a day for 3 months (5) Diabetes mellitus: Type 2 diabetes mellitus Carbohydrate consistent diet Sliding scale insulin Recheck A1c last 1 was 9.5 in 2020 (6) Essential (primary) hypertension: Monitor blood pressure. Continue home regimen restarted here (7) WOLF on CPAP: CPAP nightly (8) Difficulty in walking: PT and OT consults PDMP PDMP Reviewed: Not Reviewed Attestations 2 Medical Necessity Statement*: Patient will require additional 1-2 midnights in hospital for cellulitis of his leg Coding Level of Care Code 11441 Diagnoses Cellulitis of right lower extremity L03.115 Paroxysmal atrial fibrillation with RVR I48.0 Tinea pedis B35.3 Onychomycosis B35.1 Diabetes mellitus E11.9 Essential (primary) hypertension I10 WOLF on CPAP G47.33; Z99.89 Difficulty in walking R26.2 Time Spent (min) 40
[2025-05-14] MEDS: dilTIAZem ER (24HR) 180 mg Capsule PO (12:37)
[2025-05-14 13:02] LABS: Estmated Average Glucose 148; Hemoglobin A1C 6.8 % (4.0-6.0)
--- NOTE | 2025-05-14 14:46 | PC.PHAR ---
Spoke to Pharmacies listed in profile adn the two medication re the only thing that has been filled this year.
[2025-05-14] MEDS: cefTRIAXone 1,000 mg SDV 1000 MG IVP (17:31)
--- NOTE | 2025-05-14 18:48 | PM.CONSULT ---
Providers/Reason For Consult Consulting Physician/Specialty*: Dr. Elliot Barton, D.P.M./podiatry Reason for Consult*: Onychomycosis Attending Physician: Hebert Venegas MD Primary Care Provider: Kevin Duenas MD History of Present Illness History of Present Illness Fan Simpson is a 59 year old male currently admitted to [facility]. Podiatry is consulted for lower extremity cellulitis with a suspected cause of onychomycosis. Review of Systems General: Reports: 10 or more systems reviewed and unremarkable except in HPI and below Const: Denies: fever(s), chills, fatigue or malaise Eyes: Denies: change in vision ENMT: Denies: throat pain Card: Reports: swelling of feet/ankles; Denies: chest pain or palpitations Resp: Denies: dyspnea GI: Denies: abdominal pain, nausea or vomiting Musc: Reports: extremity swelling; Denies: limited range of motion Skin/Breast: Reports: dry skin, nail changes and change in hair Neuro: Reports: numbness in extremities and sensory changes Medications/Allergies Home Medications ?Medication ?Instructions ?Recorded ?Confirmed ?Last Taken ?Type atorvastatin 40 mg tablet 40 mg PO DAILY #90 tabs 05/07/22 05/14/25 03/15/25 Rx semaglutide 1 mg/dose (4 mg/3 mL) 1 mg SUBCUT Q7D 03/15/25 05/14/25 Unknown History subcutaneous pen injector (Ozempic) Allergies Allergy/AdvReac Type Severity Reaction Status Date / Time No Known Allergies Allergy Verified 03/18/23 18:20 Current Medications Generic Name Dose Route Start Last Admin Trade Name Freq PRN Reason Stop Dose Admin Acetaminophen 650 mg 05/13/25 11:35 05/13/25 23:58 Acetaminophen 325 Mg Tablet PO 650 mg Q6H PRN Administration Mild/Mod Pain Or Temp >/= 101 Apixaban 5 mg 05/13/25 21:00 05/14/25 08:12 Apixaban 5 Mg Tablet PO 5 mg BID@0900,2100 LENNY Administration Ceftriaxone Sodium 1,000 mg 05/14/25 18:00 05/14/25 17:31 Ceftriaxone 1,000 Mg Sdv IVP 1,000 mg BID LENNY Administration Protocol Clotrimazole 1 applic 05/13/25 15:00 05/14/25 17:34 Clotrimazole 1% Cream 30 Gm TOPICAL 1 applic BID LENNY Administration Diltiazem HCl 180 mg 05/14/25 11:45 05/14/25 12:37 Diltiazem Er (24hr) 180 Mg Capsule PO 180 mg DAILY LENNY Administration Diltiazem HCl 100 mg/ Sodium 100 mls @ 0 mls/hr 05/13/25 10:30 05/14/25 02:22 Chloride IV 0 mg/hr .Q0M LENNY 0 mls/hr Protocol Titration Per Protocol Sodium Chloride 1,000 mls @ 100 mls/hr 05/13/25 11:35 05/14/25 10:15 Sodium Chloride 0.9% IV Infused .Q10H LENNY Infusion Insulin Human Lispro 0 unit 05/13/25 18:00 05/14/25 17:19 Insulin Lispro 100 Unit/1 Ml SUBCUT Not Given WM&BEDTIME [facility] Protocol Itraconazole 200 mg 05/14/25 18:00 05/14/25 17:31 Itraconazole 100 Mg Capsule PO 200 mg BID LENNY Administration Lisinopril 40 mg 05/14/25 09:00 05/14/25 08:12 Lisinopril 20 Mg Tablet PO 40 mg DAILY LENNY Administration Metoprolol Succinate 25 mg 05/14/25 09:00 05/14/25 08:12 Metoprolol Succinate Er (24 Hr) 25 Mg Tablet PO 25 mg DAILY LENNY Administration Morphine Sulfate 2 mg 05/13/25 12:13 05/14/25 08:54 Morphine 4 Mg/Ml Sdv 1 Ml IVP 2 mg Q4H PRN Administration SEVERE PAIN Ondansetron HCl 4 mg 05/13/25 11:35 05/14/25 08:54 Ondansetron 2 Mg/Ml Sdv 2 Ml IVP 4 mg Q6H PRN Administration NAUSEA AND VOMITING PFSH Acute PFSH: Medical History (Updated 05/14/25 @ 11:31 by Hebert Venegas MD) Onychomycosis Paroxysmal A-fib Diabetes mellitus WOLF on CPAP Essential (primary) hypertension Surgical History History of colonoscopy with polypectomy Family History Father , AGE 56 Myocardial infarct Social History Smoking and tobacco/nicotine status: former use of tobacco/nicotine Alcohol intake: never Vitals/I&O/Wt Last Vital Signs Temp 97.8 F 05/14/25 16:00 Pulse 68 05/14/25 16:00 Resp 20 H 05/14/25 16:00 BP 114/66 05/14/25 16:00 Pulse Ox 91 05/14/25 16:00 O2 Del Method Room Air 05/14/25 07:44 FiO2 21 05/14/25 13:20 05/14/25 05/14/25 05/14/25 06:59 14:59 22:59 Intake Total 50.833 / 2491.083 1240 / 1240 360 / 1600 Output Total 300 / 1900 1450 / 1450 900 / 2350 Balance -249.167 / 591.083 -210 / -210 -540 / -750 Weight last 48 hrs Weight 276 lb 10.882 oz Weight 126 lb Weight 280 lb Physical Exam Narrative: FOCUSED LOWER EXTREMITY EXAM VASCULAR: DP/PT pulses palpable 2/4 with CFT intact, <3 seconds to distal digits DERMATOLOGICAL: Nails x10 thickened and elongated. No open wounds, ulcerations, or skin lesions noted. Skin temperature and turgor are within normal limits. No interdigital maceration observed. Right leg cellulitis. Epicenter of cellulitis is proximal right leg small amount of cellulitis extending down onto the dorsal of the right ankle. No evidence of foot infection MUSCULOSKELETAL: Ankle joint and hindfoot range of motion within normal limits bilaterally. No tenderness with palpation of medial, lateral or anterior ankle bilaterally. No tenderness with palpation of lateral ankle ligaments bilaterally. No pain with palpation of midfoot bilaterally. 5/5 muscle strength in all 4 quadrants of the lower extremity when tested against resistance. No gross musculoskeletal deformities noted. NEUROLOGICAL: Sensation intact to L4-S1 dermatomes bilaterally. No deficits noted. Negative Tinel and Valleix?s signs IMAGING: No imaging obtained Data 05/15/25 02:34 05/15/25 02:34 Micro: Microbiology 05/13/25 08:47 Blood Culture - Preliminary Blood NEGATIVE TO DATE 05/13/25 08:50 Blood Culture - Preliminary Blood NEGATIVE TO DATE A&P Assessment and plan 1. Onychomycosis: Plan: Patient underwent mechanical debridement of 10 thickened and elongated toenails using sterile nail nippers. There were no complications. No signs of infection to feet.. Cellulitis isolated to right leg. Toenails are not a causative issue for right leg cellulitis. No additional podiatric intervention is required at this time. Podiatry will sign off. Please reconsult if future concerns arise. Recommend patient follow-up in 2 months at the podiatry clinic upon discharge from hospital PDMP PDMP Reviewed: Not Reviewed Coding Level of Care Code Acute Code for [facility] Fwd Diagnoses Onychomycosis B35.1
[2025-05-15] VITALS (7 sets, daily range): BP systolic 102–109; BP diastolic 56–67; PULSE 65–78; RESP 17–20; TEMP 36.6–37; O2SAT 90–95
[2025-05-15 02:46] LABS: Hematocrit 41.0 % (37-53); Hemoglobin 13.60 g/dL (11.27-16.99); Mean Corpuscular HGB Conc 33.2 g/dL (30-55); Mean Corpuscular Hemoglobin 31.4 pg (27-33); Mean Corpuscular Volume 94.7 fl (82-101); Nucleated Red Blood Cells % 0 %; Platelet Count 140 10^3/cmm (157-399); Red Blood Count 4.33 10^6/uL (3.85-5.65); White Blood Count 8.15 10^3/uL (3.29-11.43)
[2025-05-15] MEDS: morphine 4 mg/mL SDV 1 mL 2 MG IVP (02:51)
[2025-05-15 03:14] LABS: Albumin Level 3.3 g/dL (3.5-5.2); Anion Gap 16.0 (5-19); Blood Urea Nitrogen 19 mg/dL (8-23); Calcium 8.6 mg/dL (8.5-10.5); Carbon Dioxide 25 mmol/L (22-29); Chloride 99 mmol/L (98-107); Creatinine Clr Calc Pharmacy 84.6873; Glucose 130 mg/dL (65-115); Magnesium 2.1 mg/dL (1.7-2.3); Potassium 4.0 mmol/L (3.5-5.1); Sodium 136 mmol/L (136-145)
[2025-05-15] MEDS: dilTIAZem ER (24HR) 180 mg Capsule PO (08:56)
[2025-05-15] MEDS: metoprolol succinate ER (24 HR) 25 mg Tablet PO (08:56)
[2025-05-15] MEDS: cefTRIAXone 1,000 mg SDV 1000 MG IVP (08:58)
--- NOTE | 2025-05-15 10:15 | PC.CHAP ---
Pastoral Care Encounter/Spiritual Assessment Type of Contact [] Declined medicaid specialist visit [] Patient/Family/Request visit [] Outpatient visit [] Follow-up visit [] Physician referral [] Code/Alert [] Routine visit [] Staff referral [] Actively dying [] Patient sleeping [] Family support [] [] Out of room [] Palliative care [] [x] Receiving care in room [] Pre-surgical visit [] Trauma [] Long length of stay [] ICU visit [] Other: Relational/Emotional Strength [] Patient feels connected with others/family/visitors/staff [] Distress [] Loneliness/isolation [] Abandonment Spirituality of Patient [] Person of Rachna [] Attends Religious of their Rachna [] Believes in Prayer [] Reads Bible or Advent materials [] There are Spiritual issues to be addressed Collector Interventions [] Prayer [] Active listening [] Non-anxious presence [] Spiritual/emotional support [] Crisis/trauma care [] Spiritual counseling [] Bereavement support [] Provided bereavement packet [] Provided Bible/devotional materials [] Provided toy/stuffed animal, coloring book to patient or family member [] Provided Communion [] Anointing/[place] [] Salvation [] Completed spiritual assessment [] Other: Impact on Illness or Injury [] Angry [] Fearful [] Anxious [] Often cries [] Exhaustion [] Unable to work [] Unable to attend restorationism [] Unable to walk/stand [] Unable to read [] Unable to drive [] Unable to eat/drink [] Unable to sleep [] Unable to be with family [] Patient intubated [] Other: Summary Time spent with patient
--- NOTE | 2025-05-15 10:47 | PM.DCS ---
Discharge Providers Date of Admission: 05/13/25 10:59 Date of Discharge: May 15, 2025 Attending Provider at Admission: Carol Street MD Attending Provider at Discharge: Hebert Venegas MD Consults: Dr. Barton podiatry Primary Care Provider: Kevin Duenas MD Diagnoses at Discharge Discharge Diagnosis 1. Onychomycosis: Details from hospital stay: Start Sporanox 200 mg twice a day for 7 days a week only. Skip 21 days a month. Take atorvastatin on the days that you are not taking Sporanox but do not take it on the week that you are taking Sporanox Continue with ketoconazole cream 2 cracked skin toes and nails twice a day If you are fungal nails and feet clear you will be much less likely to have further cellulitis 2. Cellulitis of right lower extremity: Details from hospital stay: Continue with 10 more days of antibiotics taking Keflex 4 times a day 3. Tinea pedis: Details from hospital stay: See above with Sporanox and ketoconazole 4. Paroxysmal atrial fibrillation with RVR: Details from hospital stay: Continue rate control with diltiazem and metoprolol and anticoagulation with apixaban 5. WOLF on CPAP: Details from hospital stay: Continue with your APAP of 10-20 at home. Start compression hose for swelling and keep your legs elevated when not walking. 6. Essential (primary) hypertension: Details from hospital stay: Blood pressure was a little too low so decrease lisinopril to 20 mg daily 7. Morbid obesity with BMI of 40.0-44.9, adult: Details from hospital stay: It is good that you are on Ozempic for diabetes and weight loss but calories consumed versus calories burned is still the basic process of losing weight. Limit your calories to 1600 to 1700 benjy daily and adjust for goal weight loss 2 pounds a week to get down to 180 pounds over the course of 1 to 2 years I recommend weighing daily with an electronic scale and counting your calories. Continue with Ozempic to help curb your appetite. Reason for Visit Reason for Visit: fever; chace le cellulitis Brief History: Fan Simpson is a 59 year old male with hypertension, hyperlipidemia, DM2, atrial fibrillation, and WOLF on CPAP presenting with fever, leg pain and erythema, chest pain, and shortness of breath. He came in with cellulitis of his l right leg 100.2 at home. He also reported nausea but no vomiting or diarrhea. He denies any cough. He was afebrile in the ED but was in A-fib with RVR to the 130s. He remained tachycardic despite getting his oral diltiazem dose and then an additional IV bolus of diltiazem. He has been started on a diltiazem drip. He has been taking his apixaban twice a day. His troponin was normal x 2. His WBC was elevated. Lactic acid and procalcitonin were normal. Chest x-ray did not show any acute pulmonary findings. Hospital Course Hospital Course Patient was admitted and treated for cellulitis with Rocephin. He continued on respiratory treatment with BiPAP here but he is on APAP 10 to 20 cm water at home. He states that he last time he was told that it has adjusted up to as high as 19 cmH2O. Patient's heart rate is controlled here and he is continued on apixaban. We marked his cellulitis with a marker and with treatment it has receded from the margins and redness has faded. He was not treated for MRSA but only treated with Rocephin now switching to Keflex for strep. The patient was seen by Dr. Barton for onychomycosis nail debridement and to continue with ongoing diabetic footcare outpatient. I started him on Sporanox and ketoconazole cream for toenail fungus which I think is the source of cracked skin leading to recurrent cellulitis that he has. I counseled the patient regarding weight loss and sleep apnea. Blood pressure has been a little too low so decrease lisinopril to 20 mg daily Physical Exam Narrative: General well-developed well-nourished obese male in no acute cardiopulmonary distress CV rhythm irregular but rate is controlled Lungs clear to auscultation bilaterally Abdomen positive bowel sounds soft Calves trace right pretibial edema minimal compared to left which has not There is mild and fading erythema and minimal edema in the right foot and calf which has been outlined in ink and dated showing recession from the borders marked Feet thickened onychomycotic nails hypertrophic but shorter and trimmed. There is skin between the hallux and second toe which I peeled off but there is no ulceration or deep crack Discharge Data Studies Completed and Pending Completed Studies During Hospitalization Category Date Time Status CT abdomen pelvis w con* [id number] Stat Cat Scan 05/13/25 10:28 Completed XR chest 1V portable [id number] Stat Exams 05/13/25 08:50 [place] [id number] Routine Ultrasound 05/13/25 16:59 Completed CV. echo complete* [id number] Stat Ultrasound 05/13/25 10:30 Completed Pending at discharge Category Date Time Status Blood Culture Stat Lab 05/13/25 08:47 Results CBC Auto Diff [Complete Blood Count w/Auto] AM LABS Lab 05/16/25 04:00 Ordered Magnesium AM LABS Lab 05/16/25 04:00 Ordered Renal Function Panel AM LABS Lab 05/16/25 04:00 Ordered Radiology Impressions Chest X-Ray 05/13/25 08:50 IMPRESSION: No acute pulmonary finding. Abdomen/Pelvis CT 05/13/25 10:28 IMPRESSION: 1. Mild fatty infiltration of the liver. The liver has a slightly nodular contour suggestive of cirrhosis. 2. Few scattered colonic diverticula. 3. Please see above comments for additional details. Venous Duplex 05/13/25 16:59 IMPRESSION: No sonographic evidence of deep vein thrombosis. Laboratory Results WBC 8.15 10^3/uL (3.29-11.43) 05/15/25 02:34 RBC 4.33 10^6/uL (3.85-5.65) 05/15/25 02:34 Hgb 13.60 g/dL (11.27-16.99) 05/15/25 02:34 Hct 41.0 % (37-53) 05/15/25 02:34 MCV 94.7 fl (82-101) 05/15/25 02:34 MCH 31.4 pg (27-33) 05/15/25 02:34 MCHC 33.2 g/dL (30-55) 05/15/25 02:34 RDW 12.0 % (12.1-15.1) L 05/15/25 02:34 Plt Count 140 10^3/cmm (157-399) L 05/15/25 02:34 MPV 9.5 fL (7.4-10.4) 05/15/25 02:34 Neut % (Auto) 70.8 % 05/15/25 02:34 Lymph % (Auto) 15.3 % 05/15/25 02:34 [place] % (Auto) 7.5 % 05/15/25 02:34 Eos % (Auto) 5.4 % 05/15/25 02:34 Baso % (Auto) 0.5 % 05/15/25 02:34 Neut # (Auto) 5.77 10^3/uL (1.8-7.7) 05/15/25 02:34 Lymph # (Auto) 1.3 10^3/uL (0.8-4.8) 05/15/25 02:34 [place] # (Auto) 0.6 10^3/uL (0.2-0.9) 05/15/25 02:34 Eos # (Auto) 0.4 10^3/uL (0.0-0.8) 05/15/25 02:34 Baso # (Auto) 0.0 10^3/uL (0.0-0.1) 05/15/25 02:34 Nucleated RBC % (auto) 0 % 05/15/25 02:34 Nucleated RBCs # 0.0 /100WBC 05/15/25 02:34 Specimen Type Arterial 05/13/25 08:57 Sample Site Radial, right 05/13/25 08:57 ABG pH 7.50 (7.35-7.45) H 05/13/25 08:57 ABG pCO2 29.5 mmHg (35-45) L 05/13/25 08:57 ABG pO2 84.3 mmHg (80.0-100.0) 05/13/25 08:57 ABG PO2/FiO2 Ratio 301 05/13/25 08:57 ABG HCO3 23.0 mmol/L (22-26) 05/13/25 08:57 ABG O2 Saturation 94.6 05/13/25 08:57 ABG Base Excess 1.1 mmol/L (-2.0-2.0) 05/13/25 08:57 Edward Test Pos 05/13/25 08:57 A-a O2 Gradient 10.1 mmHg (5-10) H 05/13/25 08:57 Hematocrit 52.1 % (42-52) H 05/13/25 08:57 Hgb O2 Saturation 94.3 % (95-100) L 05/13/25 08:57 Carboxyhemoglobin 0.2 %THgb (0.4-20.1) L 05/13/25 08:57 Methemoglobin 0.2 % (0.4-1.5) L 05/13/25 08:57 Total Hemoglobin 17.0 g/dL (14-18) 05/13/25 08:57 Sodium 138.0 mmol/L (131-143) 05/13/25 08:57 Potassium 3.3 mmol/L (3.5-5.0) L 05/13/25 08:57 Glucose 177.0 mg/dL (70-115) H 05/13/25 08:57 Ionized Calcium 1.1 mmol/L (1.1-1.4) 05/13/25 08:57 O2 Delivery Device Nc 05/13/25 08:57 O2 Liters/Min 2.0 % 05/13/25 08:57 FiO2 28.0 % 05/13/25 08:57 Security Incident Response Engineer ID [email or web address] 05/13/25 08:57 Sodium 136 mmol/L (136-145) 05/15/25 02:34 Potassium 4.0 mmol/L (3.5-5.1) 05/15/25 02:34 Chloride 99 mmol/L (98-107) 05/15/25 02:34 Carbon Dioxide 25 mmol/L (22-29) 05/15/25 02:34 Anion Gap 16.0 (5-19) 05/15/25 02:34 BUN 19 mg/dL (8-23) 05/15/25 02:34 Creatinine 1.2 mg/dL (0.7-1.2) 05/15/25 02:34 GFR Calculation 61.6 mL/min (90-130) L 05/15/25 02:34 Glucose 130 mg/dL (65-115) H 05/15/25 02:34 POC Glucose 121 mg/dL (70-110) H 05/15/25 06:42 Estimat Average Glucose 148 05/14/25 11:45 Hemoglobin A1c 6.8 % (4.0-6.0) H 05/14/25 11:45 Calculated Osmolality 285 mOsm/kg (285-295) 05/13/25 08:50 Lactic Acid 1.6 mmol/L (0.5-2.2) 05/13/25 08:50 Calcium 8.6 mg/dL (8.5-10.5) 05/15/25 02:34 Phosphorus 3.2 mg/dL (2.5-4.5) 05/15/25 02:34 Magnesium 2.1 mg/dL (1.7-2.3) 05/15/25 02:34 Total Bilirubin 1.0 mg/dL (0.15-1.2) 05/13/25 08:50 AST 13 U/L (0-40) 05/13/25 08:50 ALT 18 U/L (0-41) 05/13/25 08:50 Alkaline Phosphatase 56 U/L (40-130) 05/13/25 08:50 C-Reactive Protein 3.7 mg/L (0.0-4.9) 05/13/25 08:50 NT-Pro-B Natriuret Pep 50 pg/mL (0-125) 05/13/25 08:50 Total Protein 7.7 g/dL (6.6-8.7) 05/13/25 08:50 Albumin 3.3 g/dL (3.5-5.2) L 05/15/25 02:34 Globulin 3.2 g/dL (1.3-4.6) 05/13/25 08:50 Lipase 21 U/L (13-60) 05/13/25 08:50 Procalcitonin 0.18 ng/mL (0-0.5) 05/13/25 08:50 TSH 1.16 uIU/mL (0.27-4.20) 05/13/25 08:50 Free T4 0.83 ng/dL (0.82-1.77) 05/13/25 08:50 Urine Color Yellow (Yellow) 05/13/25 08:40 Urine Appearance Clear (CLEAR) 05/13/25 08:40 Urine pH 5.0 (5-7) 05/13/25 08:40 Ur Specific [place] 1.035 (1.005-1.030) H 05/13/25 08:40 Urine Protein Negative (Negative) 05/13/25 08:40 Urine Glucose (UA) 1+ (Normal) H 05/13/25 08:40 Urine Ketones 1+ (Negative) H 05/13/25 08:40 Urine Blood Negative (Negative) 05/13/25 08:40 Urine Nitrate Negative (Negative) 05/13/25 08:40 Urine Bilirubin Negative (Negative) 05/13/25 08:40 Urine Urobilinogen 1.0 mg/dL (Negative) 05/13/25 08:40 Ur Leukocyte Esterase Negative (Negative) 05/13/25 08:40 Urine RBC 0-2 /hpf (0-2) 05/13/25 08:40 Urine WBC 0-5 /hpf (0-5) 05/13/25 08:40 Ur Squamous Epith Cells 0-5 /hpf (0-5) 05/13/25 08:40 Amorphous Sediment Not Reportable 05/13/25 08:40 Urine Bacteria None seen /hpf (NONE) 05/13/25 08:40 Hyaline Casts 0-4 /lpf H 05/13/25 08:40 Influenza A (PCR) Negative (Negative) 05/13/25 09:33 Influenza Type B (PCR) Negative (Negative) 05/13/25 09:33 RSV (PCR) Negative (Negative) 05/13/25 09:33 SARS-CoV-2 (PCR) Negative (Negative) 05/13/25 09:33 Vitals Last Vital Signs Temp 98.0 F 05/15/25 07:51 Pulse 67 05/15/25 07:51 Resp 19 H 05/15/25 07:51 BP 108/56 05/15/25 07:51 Pulse Ox 95 05/15/25 07:51 O2 Del Method Nasal Cannula 05/15/25 07:51 O2 Flow Rate 2 05/14/25 20:54 FiO2 30 05/14/25 23:20 Discharge Plan Discharge Patient Disposition: Home Condition: Stable Prescriptions: New ketoconazole 2 % cream 1 applic topical BID Qty: 60 0RF itraconazole 100 mg Capsule 200 mg PO BID Qty: 84 0RF cephalexin 500 mg capsule 500 mg PO Q6H 10 Days Qty: 40 0RF melatonin 3 mg Tablet 3 mg PO BEDTIME PRN (Reason: sleep) Qty: 90 0RF metoprolol succinate 25 mg Tablet Extended Release 24 Hr 25 mg PO DAILY Qty: 30 0RF diltiazem HCl [DILT-XR] 180 mg Capsule,Ext.Rel 24h Degradable 180 mg PO DAILY Qty: 30 0RF Eliquis 5 mg Tablet 5 mg PO BID@0900,2100 Qty: 30 0RF lisinopril 20 mg Tablet 20 mg PO DAILY Qty: 30 0RF ketoconazole 2 % cream 1 applic topical BID Qty: 60 0RF cephalexin 500 mg capsule 500 mg PO QID 10 Days Qty: 40 0RF Continued atorvastatin 40 mg tablet 40 mg PO DAILY Qty: 90 3RF Ozempic 1 mg/dose (4 mg/3 mL) pen injector 1 mg SUBCUT Q7D Discharge Order = DC NOW: Discharge Order (Routine); Ordered 05/15/25 Ordered By: Hebert Venegas Referrals: Kevin Duenas MD [Primary Care Provider, Family Practice] - 05/18/25 9:30 am Discharge Diet: Diabetic Patient Instructions: Cephalexin (By mouth) (Bio-Cef, Keflex), Metoprolol (By mouth) (Lopressor, Toprol XL), Diltiazem (By mouth) (Cardizem, Cardizem CD, Cardizem LA, Cardizem SR), Lisinopril (By mouth) (Prinivil, Zestril), Ketoconazole (By mouth) (Nizoral), Itraconazole (By mouth) (Onmel, Sporanox, Tolsura), Melatonin (By mouth) ([facility] Melatonin, Nature's..., Apixaban (By mouth) (Eliquis), A-fib (Atrial Fibrillation) (DC), Cellulitis (GEN), Hypertension (DC), Opioid Safety, Patient Portal & [place] Instructions Activity Restrictions/Additional Instructions: Continue to wear your CPAP each night and keep your legs elevated while sleeping or sitting and not walking. I recommend you wear compression hose on your legs as well For the fungal nails and foot fungus take the Sporanox 200 mg twice a day for 1 week a month staying off of it for 21 days of the month. On the days you are taking Sporonox skip your atorvastatin as there is a conflict which increases the level of atorvastatin. Continue with Dr. Barton for diabetic footcare For weight loss I recommend you get an [employer] ES 551 scale off [employer] and sync it to your phone. Shoot for a goal of 2 pounds weight loss per week and try to eat less than 1700 benjy a day. Adjust your calories daily up or down to allow 2 pounds weight loss per week. Continue with your Ozempic 1 mg weekly as your doctor has prescribed Try to get your weight down to 180 pounds over the course of 1 to 2 years Discharge Attestations Time Spent in Discharge Care*: greater than 30 min Quality Metrics Clinical Quality Measures [ No reported AMI, CVA or VTE this stay] Coding Level of Care Code 81521 Diagnoses Onychomycosis B35.1 Cellulitis of right lower extremity L03.115 Tinea pedis B35.3 Paroxysmal atrial fibrillation with RVR I48.0 WOLF on CPAP G47.33; Z99.89 Essential (primary) hypertension I10 Morbid obesity with BMI of 40.0-44.9, adult E66.01; Z68.41 Time Spent (min) 50
== END 2025-05-15 13:19 | disposition home or self-care (01) ==
LOC: ER 10:53 → CSU 11:34
PROVIDERS: Admitting Provider Student in an Organized Health Care Education/Training Program; Emergency Provider Family Medicine; PCP Family Medicine; Visit Provider Internal Medicine
DX: L03.115 Cellulitis of right lower limb (principal); B35.1 Tinea unguium; B35.3 Tinea pedis; I48.0 Paroxysmal atrial fibrillation; G47.33 Obstructive sleep apnea (adult) (pediatric); Z99.89 Dependence on other enabling machines and devices; I10 Essential (primary) hypertension; E66.01 Morbid (severe) obesity due to excess calories; Z68.41 Body mass index [BMI] 40.0-44.9, adult; Z79.01 Long term (current) use of anticoagulants; Z87.891 Personal history of nicotine dependence
CPT/HCPCS: 36415; 36416; 36600; 71045; 74177; 80051; 80053; 80069; 81001; 82330; 82805; 82962; 83036; 83605; 83690; 83735; 83880; 84145; 84439; 84443; 85025; 86140; 87040; 87637; 93005; 93010; 93306; 93971; 94660; 94760; 96372; 97116; 97161; 97165; A9270; G0378; J0696; J1815; J1956; J2270; J2405; J3490; J7030; J9999

== ENCOUNTER 2025-07-12 07:16 | Observation (INO) | payer BC, SELFPAY ==
--- OUTSIDE RECORDS SUMMARY | 2003-11-07 19:00 | XMS_ITS | Continuity of Care Document ---
[facility] [address] [place] [address] Organization [facility] Care Team Providers Care Burlap Bag Sewer Name Role Phone [facility] Unavailable Problems Problem Status Onset Date Problem Type Date of Resolution Comments Source Body mass index 40+ - severely obese (finding) Active Condition Added by Discern Rule PROB_ADD_BMI Chronic obstructive lung disease (disorder) Resolved Condition Viral hepatitis C (disorder) Resolved Condition Hypertensive disorder, systemic arterial (disorder) Resolved Condition Morbid obesity (disorder) Resolved Condition Obstructive sleep apnea of adult (disorder) Resolved Condition Severe obesity (disorder) Active Condition Added by Discern Rule PROB_ADD_BMI Diabetes mellitus type 2 (disorder) Resolved Condition Body mass index 40+ - severely obese (finding) Diagnosis Exposure to 2019 novel coronavirus Diagnosis Cardiomegaly (disorder) Diagnosis Type II diabetes mellitus without complication (disorder) Diagnosis Morbid obesity (disorder) Diagnosis Obstructive sleep apnea syndrome (disorder) Diagnosis Essential hypertension (disorder) Diagnosis Atherosclerosis of coronary artery (disorder) Diagnosis Chronic obstructive lung disease (disorder) Diagnosis Family history: Cardiovascular disease (context-dependent category) Diagnosis Shortness of breath Active Diagnosis Procedures Procedure Code Date Perfomer Comments Source Tonsillectomy and adenoidect nusrat; younger than age 12 [id number] [facility]
--- OUTSIDE RECORDS SUMMARY | 2003-11-07 19:00 | XMS_ITS | Continuity of Care Document ---
[facility] [address] [place] [address] Organization [facility] Care Team Providers Care Fur Pointer Name Role [facility] Unavailable Unavailable Problems Problem Status Onset [...] and adenoidect nusrat; younger than age 12 [id number] [facility]
[2025-07-12] VITALS (31 sets, daily range): BP systolic 117–182; BP diastolic 58–126; PULSE 65–169; RESP 16–30; TEMP 36.4–36.8; O2SAT 90–94; BMI 42.1
--- NOTE | 2025-07-12 07:18 | ECG_ITS ---
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 Measurements Intervals [place] Rate: 118 P: 0 SD: 0 QRS: -35 QRSD: 148 T: 125 QT: 362 QTc: 508 Interpretive Statements ATRIAL FIBRILLATION WITH RAPID VENTRICULAR RESPONSE LEFT AXIS DEVIATION [QRS AXIS < -30] LEFT BUNDLE BRANCH BLOCK [120+ ms QRS DURATION, 80+ ms Q/S IN V1/V2, 85+ ms R IN I/aVL/V5/V6] Compared to ECG 05/13/2025 09:00:01 No significant changes Electronically Signed On 07-13-2025 09:12:53 CDT by Yordy Ferreira M.D. [id number]
--- NOTE | 2025-07-12 07:20 | XR_ITS ---
WS: [id number] Portable AP upright chest, 07/12/2025 Clinical Data: sob Comparison: Portable chest, 05/13/2025 Findings: No nodules, masses or effusions are seen. The heart is enlarged. The pulmonary vascularity is increased. No pneumonia or pneumothorax is seen. The aortic arch shows tortuosity. XR/XR chest 1V portable [id number] Impression: 1. Cardiomegaly with pulmonary vascular congestion. 2. Atherosclerosis.
--- OUTSIDE RECORDS SUMMARY | 2025-07-12 07:24 | XMS_ITS | Clinical Summary ---
Author Organization [facility] Address [address] [place] [address] Phone Care Team Providers Care Manager Market Development Name Role Phone Unavailable Primary Care Provider Unavailabl e Encounters Date Type Department Care Team Description 05/23/2025 External Device Data ST[facility] ABSTRACTION Provider, Abstract from Last 3 Months Social History Tobacco Use Types Packs/Day Years [...] (1 - 1-dose 75+ series) 2038 Insurance [facility] PREFERRED
--- NOTE | 2025-07-12 07:36 | W.ED.SOB ---
HPI - SOB/Dyspnea General: Chief Complaint: Shortness of Breath/Dyspnea Stated Complaint: difficulty breathing Source: patient and EMS Mode of arrival: EMS Limitations: no limitations History of Present Illness: HPI Narrative: 59-year-old male has a history of COPD states that he woke up this morning and started having shortness of breath and wheezing. He states that he started having a dry cough as well and called EMS. EMS states that he was 8990% on room air they did give him a breathing treatment and route he states has had some slight improvement he denies any chest pain denies any fevers. Associated symptoms: Deny abdominal pain, chest pain, fever(s), nausea or vomiting Related Data Home Medications ?Medication ?Instructions ?Recorded ?Confirmed semaglutide 1 mg/dose (4 mg/3 mL) 1 mg SUBCUT Q7D 03/15/25 05/14/25 subcutaneous pen injector (Ozempic) Previous Rx's ?Medication ?Instructions ?Recorded atorvastatin 40 mg tablet 40 mg PO DAILY #90 tabs 05/07/22 apixaban 5 mg tablet (Eliquis) 5 mg PO BID@0900,2100 #30 tabs 05/15/25 diltiazem HCl 180 mg 180 mg PO DAILY #30 caps 05/15/25 capsule,extended release 24 hr, controlled (DILT-XR) itraconazole 100 mg capsule 200 mg (2 x 100 mg) PO BID #84 caps 05/15/25 ketoconazole 2 % topical cream 1 applic topical BID #60 grams 05/15/25 lisinopril 20 mg tablet 20 mg PO DAILY #30 tabs 05/15/25 melatonin 3 mg tablet 3 mg PO BEDTIME PRN sleep #90 tabs 05/15/25 metoprolol succinate 25 mg 25 mg PO DAILY #30 tabs 05/15/25 tablet,extended release 24 hr Allergies Allergy/AdvReac Type Severity Reaction Status Date / Time No Known Allergies Allergy Verified 03/18/23 18:20 Review of Systems Const: Denies: fever(s), chills, body aches or change in appetite ENMT: Denies: throat pain or dental pain Card: Denies: chest pain Resp: Reports: dyspnea, non-productive cough and wheezing GI: Denies: abdominal pain, nausea, vomiting or diarrhea : Denies: dysuria Musc: Denies: neck pain or back pain Skin/Breast: Denies: rash Neuro: Denies: headache(s) PFSH ED PFSH: Medical History Morbid obesity with BMI of 40.0-44.9, adult Onychomycosis Paroxysmal A-fib Diabetes mellitus WOLF on CPAP Essential (primary) hypertension Surgical History History of colonoscopy with polypectomy Family History Father , AGE 56 Myocardial infarct Social History Smoking and tobacco/nicotine status: former use of tobacco/nicotine Alcohol intake: never Physical Exam Const: COMMON NORMALS: no acute distress, patient oriented x3 and healthy appearing HENMT: COMMON NORMALS: normocephalic HEAD & SCALP: normocephalic Eye: COMMON NORMALS: Equal, round and reactive pupils present and EOMs intact bilaterally PUPIL: Yes Equal, round and reactive pupils present Neck/C-Spine: COMMON NORMALS: full ROM and supple Chest: COMMONS NORMALS: normal inspection of the chest Resp: COMMON NORMALS: normal respiratory effort, No retractions and No use of accessory muscles EFFORT & INSPECTION: Yes audible wheezes Cardio: COMMON NORMALS: No murmurs present (Cardio) RATE: tachycardic RHYTHM: abnormal rhythm irregularly irregular GI: COMMON NORMALS: Normal to inspection, nondistended, normoactive bowel sounds present, Soft to palpation, non-tender and no masses PALPATION: Yes Soft to palpation Extremity: COMMON NORMALS: normal to inspection and full ROM Neuro: COMMON NORMALS: patient oriented x3, moves all extremities and no focal motor deficits Psych: COMMON NORMALS: mental status grossly normal, Normal thought process present and cooperative THOUGHT PROCESS: Normal thought process present Skin: COMMON NORMALS: no rashes or lesions noted and no wounds GENERAL SKIN EXAM: no rashes or lesions noted Course Vital Signs: Vital signs: Vital Signs Temperature 98.2 F 07/12/25 07:17 Pulse Rate 139 H 07/12/25 09:00 Respiratory Rate 18 07/12/25 08:12 Blood Pressure 117/83 07/12/25 09:00 Pulse Oximetry 91 07/12/25 09:00 Oxygen Delivery Me thod Room Air 07/12/25 09:00 Oxygen Flow Rate 3 07/12/25 07:17 Fraction of Inspir ed Oxygen 21 07/12/25 08:12 MDM - SOB/Dyspnea Medical Decision Making Patient presents here with COPD exacerbation patient is requiring 2 L of oxygen here his breathing has improved after breathing treatment to give him steroids he has no signs of pneumonia he is also in A-fib with RVR having my Ruthy drip spoke to the hospitalist will admit Medical Records I reviewed the patient's medical records. Lab Data I reviewed the patient's lab results. 07/12/25 07:20 07/12/25 07:20 Labs/Radiology: Radiology Impressions Chest X-Ray 07/12/25 07:20 Impression: 1. Cardiomegaly with pulmonary vascular congestion. 2. Atherosclerosis. Laboratory Results WBC 6.76 10^3/uL (3.29-11.43) 07/12/25 07:20 RBC 4.72 10^6/uL (3.85-5.65) 07/12/25 07:20 Hgb 14.70 g/dL (11.27-16.99) 07/12/25 07:20 Hct 43.1 % (37-53) 07/12/25 07:20 MCV 91.3 fl (82-101) 07/12/25 07:20 MCH 31.1 pg (27-33) 07/12/25 07:20 MCHC 34.1 g/dL (30-55) 07/12/25 07:20 RDW 11.7 % (12.1-15.1) L 07/12/25 07:20 Plt Count 154 10^3/cmm (157-399) L 07/12/25 07:20 MPV 9.9 fL (7.4-10.4) 07/12/25 07:20 Neut % (Auto) 60.5 % 07/12/25 07:20 Lymph % (Auto) 20.6 % 07/12/25 07:20 [place] % (Auto) 6.1 % 07/12/25 07:20 Eos % (Auto) 11.5 % 07/12/25 07:20 Baso % (Auto) 0.9 % 07/12/25 07:20 Neut # (Auto) 4.09 10^3/uL (1.8-7.7) 07/12/25 07:20 Lymph # (Auto) 1.4 10^3/uL (0.8-4.8) 07/12/25 07:20 [place] # (Auto) 0.4 10^3/uL (0.2-0.9) 07/12/25 07:20 Eos # (Auto) 0.8 10^3/uL (0.0-0.8) 07/12/25 07:20 Baso # (Auto) 0.1 10^3/uL (0.0-0.1) 07/12/25 07:20 Nucleated RBC % (auto) 0 % 07/12/25 07:20 Nucleated RBCs # 0.0 /100WBC 07/12/25 07:20 Sodium 138 mmol/L (136-145) 07/12/25 07:20 Potassium 4.0 mmol/L (3.5-5.1) 07/12/25 07:20 Chloride 103 mmol/L (98-107) 07/12/25 07:20 Carbon Dioxide 23 mmol/L (22-29) 07/12/25 07:20 Anion Gap 16.0 (5-19) 07/12/25 07:20 BUN 16 mg/dL (8-23) 07/12/25 07:20 Creatinine 1.1 mg/dL (0.7-1.2) 07/12/25 07:20 GFR Calculation 68.1 mL/min (90-130) L 07/12/25 07:20 Glucose 217 mg/dL (65-115) H 07/12/25 07:20 Calculated Osmolality 294 mOsm/kg (285-295) 07/12/25 07:20 Calcium 8.9 mg/dL (8.5-10.5) 07/12/25 07:20 Total Bilirubin 0.4 mg/dL (0.15-1.2) 07/12/25 07:20 AST 12 U/L (0-40) 07/12/25 07:20 ALT 12 U/L (0-41) 07/12/25 07:20 Alkaline Phosphatase 60 U/L (40-130) 07/12/25 07:20 NT-Pro-B Natriuret Pep 348 pg/mL (0-125) H 07/12/25 07:20 Total Protein 7.1 g/dL (6.6-8.7) 07/12/25 07:20 Albumin 4.1 g/dL (3.5-5.2) 07/12/25 07:20 Globulin 3.0 g/dL (1.3-4.6) 07/12/25 07:20 All radiology interpretation(s) finalized by discharge EKG Data EKG 1: I personally reviewed and interpreted this EKG as follows: EKG Interpretation Date: 07/12/25 EKG interpretation time: 07:18 Interpretation: afib with rvr hr [address] elevation qrs 148 qtc 432 Discharge Plan Discharge Patient Disposition: Admitted As Inpatient Clinical Impression: Paroxysmal atrial fibrillation with RVR, Acute exacerbation of chronic obstructive airways disease Condition: Stable Coding Level of Care Code ED Commercial Account Manager for Rosalinda Ornelas
[2025-07-12] MEDS: methylPREDNISolone sod succ 125 mg/2 mL INJ IV (07:48)
[2025-07-12 07:55] LABS: Hematocrit 43.1 % (37-53); Hemoglobin 14.70 g/dL (11.27-16.99); Mean Corpuscular HGB Conc 34.1 g/dL (30-55); Mean Corpuscular Hemoglobin 31.1 pg (27-33); Mean Corpuscular Volume 91.3 fl (82-101); Nucleated Red Blood Cells % 0 %; Platelet Count 154 10^3/cmm (157-399); Red Blood Count 4.72 10^6/uL (3.85-5.65); White Blood Count 6.76 10^3/uL (3.29-11.43)
[2025-07-12 08:18] LABS: Alanine Aminotransferase 12 U/L (0-41); Albumin Level 4.1 g/dL (3.5-5.2); Alkaline Phosphatase 60 U/L (40-130); Anion Gap 16.0 (5-19); Aspartate Amino Transferase 12 U/L (0-40); Blood Urea Nitrogen 16 mg/dL (8-23); Calcium 8.9 mg/dL (8.5-10.5); Carbon Dioxide 23 mmol/L (22-29); Chloride 103 mmol/L (98-107); Creatinine Clr Calc Pharmacy 93.5300; Globulin 3.0 g/dL (1.3-4.6); Glucose 217 mg/dL (65-115); NT Pro B Type Natriuretic Pept 348 pg/mL (0-125); Osmolality Calculated 294 mOsm/kg (285-295); Potassium 4.0 mmol/L (3.5-5.1); Sodium 138 mmol/L (136-145); Total Protein 7.1 g/dL (6.6-8.7)
[2025-07-12] MEDS: dilTIAZem 100 MG in sodium chloride 0.9% (add-van) 100 ML IV (08:53)
--- NOTE | 2025-07-12 09:59 | ECG_ITS ---
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 Measurements Intervals [place] Rate: 122 P: 0 VT: 0 QRS: -44 QRSD: 149 T: 92 QT: 361 QTc: 516 Interpretive Statements ATRIAL FIBRILLATION WITH RAPID VENTRICULAR RESPONSE LEFT AXIS DEVIATION [QRS AXIS < -30] LEFT BUNDLE BRANCH BLOCK [120+ ms QRS DURATION, 80+ ms Q/S IN V1/V2, 85+ ms R IN I/aVL/V5/V6] Compared to ECG 07/12/2025 07:18:31 No significant changes Electronically Signed On 07-13-2025 09:12:26 CDT by Yordy Ferreira M.D. [id number]
--- NOTE | 2025-07-12 10:17 | PC.PHAR ---
Patient states he was taking OZempic but can not afford it . Pharmacy states medications were not picked up when ordered on May 15 .Patient states he has a bunch of medications. in his truck . Last fills were 10/31/25 90days .
[2025-07-12 10:51] LABS: Troponin(5th) Baseline 14 ng/L (0-15)
--- NOTE | 2025-07-12 12:09 | ECG_ITS ---
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 Measurements Intervals [place] Rate: 100 P: 0 OR: 0 QRS: -48 QRSD: 153 T: 93 QT: 407 QTc: 525 Interpretive Statements ATRIAL FIBRILLATION WITH RAPID VENTRICULAR RESPONSE LEFT AXIS DEVIATION [QRS AXIS < -30] LEFT BUNDLE BRANCH BLOCK [120+ ms QRS DURATION, 80+ ms Q/S IN V1/V2, 85+ ms R IN I/aVL/V5/V6] Compared to ECG 07/12/2025 09:59:23 No significant changes Electronically Signed On 07-13-2025 20:40:59 CDT by Jourdan Novak M.D. [id number]
--- NOTE | 2025-07-12 12:21 | PM.HP ---
Providers/Chief Complaint Admitting Physician: Donny Acuña Primary Care Provider: Kevin Duenas MD Chief Complaint: difficulty breathing History of Present Illness Fan Simpson is a 59 year old gentleman with a history of chronic obstructive pulmonary disease (COPD), obstructive sleep apnea (WOLF) on continuous positive airway pressure (CPAP), type 2 diabetes mellitus (DM2), atrial fibrillation (AF), hypertension, hyperlipidemia, and prior coronary artery disease (CAD) evaluation presented to the emergency department with shortness of breath and dry cough. En route, oxygen was initiated for oxygen saturation of 89%. In the emergency department, found to be in atrial fibrillation with rapid ventricular response (heart rates up to 169). Reports chest pain today, sometimes described like an ?elephant sitting? on the chest; worse with deep breaths and when lying back. Orthopnea noted (?had them sit me up? to breathe better). Denies dark or black stools, blood in stool or urine, dysuria, rashes. Denies lower-extremity swelling currently. States prior cardiac catheterization in [place], [place] showed approximately 50% coronary stenosis with no stent placed (several years ago). Anticoagulated on Eliquis at home. Nebulizer treatment given in ED with improvement in wheezing. Review of Systems Const: Denies: fever(s), chills, body aches or malaise ENMT: Denies: throat pain Card: Reports: orthopnea; Denies: chest pain, edema or pre-syncope Resp: Reports: dyspnea, non-productive cough and wheezing; Denies: productive cough, change in phlegm color or hemoptysis GI: Denies: abdominal pain, nausea, vomiting, diarrhea, constipation, hematochezia or melena : Denies: flank pain, difficulty urinating, urinary frequency or hematuria Musc: Denies: back pain, joint swelling or joint redness Skin/Breast: Denies: rash or new lesions Neuro: Denies: headache(s) or confusion Medications/Allergies Home Medications ?Medication ?Instructions ?Recorded ?Confirmed ?Last Taken ?Type atorvastatin 40 mg tablet 40 mg PO DAILY #90 tabs 05/07/22 07/12/25 07/10/25 Rx semaglutide 1 mg/dose (4 mg/3 mL) 1 mg SUBCUT Q7D 03/15/25 07/12/25 Unknown History subcutaneous pen injector (Ozempic) apixaban 5 mg tablet (Eliquis) 5 mg PO BID@0900,2100 #30 tabs 05/15/25 07/12/25 Unknown Rx diltiazem HCl 180 mg 180 mg PO DAILY #30 caps 05/15/25 07/12/25 Unknown Rx capsule,extended release 24 hr, controlled (DILT-XR) ketoconazole 2 % topical cream 1 applic topical BID #60 grams 05/15/25 07/12/25 Unknown Rx lisinopril 20 mg tablet 20 mg PO DAILY #30 tabs 05/15/25 07/12/25 Unknown Rx melatonin 3 mg tablet 3 mg PO BEDTIME PRN sleep #90 tabs 05/15/25 07/12/25 Unknown Rx metoprolol succinate 25 mg 25 mg PO DAILY #30 tabs 05/15/25 07/12/25 Unknown Rx tablet,extended release 24 hr chlorthalidone 25 mg tablet 25 mg PO DAILY 07/12/25 07/12/25 Unknown History empagliflozin 25 mg tablet 25 mg PO DAILY 07/12/25 07/12/25 Unknown History (Jardiance) itraconazole 100 mg capsule 200 mg PO BID 07/12/25 07/12/25 Unknown History (Sporanox) Allergies Allergy/AdvReac Type Severity Reaction Status Date / Time No Known Allergies Allergy Verified 03/18/23 18:20 PFSH Acute PFSH: Medical History Morbid obesity with BMI of 40.0-44.9, adult Onychomycosis Paroxysmal A-fib Diabetes mellitus WOLF on CPAP Essential (primary) hypertension Surgical History History of colonoscopy with polypectomy Family History Father , AGE 56 Myocardial infarct Social History Smoking and tobacco/nicotine status: former use of tobacco/nicotine Alcohol intake: never Vitals/I&O/Wt Last Vital Signs Temp 98.2 F 07/12/25 07:17 Pulse 97 07/12/25 12:00 Resp 23 H 07/12/25 12:00 BP 118/91 07/12/25 12:00 Pulse Ox 93 07/12/25 12:00 O2 Del Method Nasal Cannula 07/12/25 12:00 O2 Flow Rate 3 07/12/25 12:00 FiO2 21 07/12/25 08:12 07/11/25 07/12/25 07/12/25 22:59 06:59 14:59 Intake Total 16.292 / 16.292 Balance 16.292 / 16.292 Weight last 48 hrs Weight 128.367 kg Physical Exam Narrative: Accompanied by his Const: COMMON NORMALS: patient oriented x3 and alert GENERAL APPEARANCE: cooperative NUTRITIONAL APPEARANCE: obese ORIENTATION/CONSCIOUSNESS: Yes awake HENMT: COMMON NORMALS: oropharynx normal Neck/C-Spine: COMMON NORMALS: no JVD Resp: COMMON NORMALS: normal respiratory effort and clear to auscultation bilaterally AUSCULTATION: diminished lung sounds Cardio: COMMON NORMALS: no JVD, regular rhythm, S1 normal heart sound present, S2 normal heart sound present and No murmurs present (Cardio) RHYTHM: regular rhythm HEART SOUNDS: S1 normal heart sound present and S2 normal heart sound present GI: COMMON NORMALS: Normal to inspection, nondistended, normoactive bowel sounds present, Soft to palpation and non-tender PALPATION: Yes Soft to palpation Extremity: COMMON NORMALS: no joint enlargement and no pedal edema Neuro: COMMON NORMALS: patient oriented x3 and moves all extremities SENSORIUM/ORIENTATION: Yes alert Skin: COMMON NORMALS: no rashes or lesions noted GENERAL SKIN EXAM: no rashes or lesions noted Data 07/12/25 07:20 07/12/25 07:20 A&P Assessment and plan 1. Paroxysmal atrial fibrillation with RVR: ED course notable for atrial fibrillation with RVR (heart rates up to 169). Electrocardiogram (EKG) with atrial fibrillation. Platelets mildly decreased at 154; hemoglobin normal; basic metabolic panel within provided ranges; creatinine 1.1. Reviewed vitals, CBC, BMP, check magnesium. Reviewed EKG, chest x-ray, ED provider note, discussed with the provider. EKG with atrial fibrillation, old left bundle branch block on my interpretation, pending official read. - Monitor on telemetry. Check magnesium. - Continue diltiazem (Cardizem) drip; wean down with improving heart rate. - Resume home diltiazem and metoprolol. - Continue apixaban (Eliquis). - With noted some chest pressure, (over the chest pain described as pleuritic), assess TTE. Complete troponin EKG series. Back in 2022 mild nonobstructive CAD, mildly decreased ejection fraction 45% on review of prior echo. LCx with 50% stenosis on coronary angiogram in [place] 04/07/2023. Plan: COPD exacerbation : Moderate COPD exacerbation. Presentation with shortness of breath and dry cough; wheezing improved after nebulizer treatment. - Continue treatment with methylprednisolone (noted as solumedrol) 40 mg three times daily. Of risk of hyperglycemia, hypertension, encephalopathy, gastritis with IV steroids. - Nebulized bronchodilator treatments scheduled and as needed (PRN). - Check C-reactive protein (CRP), procal for now without antibiotics. - Provide oxygen support; wean as tolerated. - Check viral studies: PCR for influenza, COVID, and respiratory syncytial virus (RSV). - Collect sputum culture if able. Chest pain/possible cardiac ischemia : Intermittent chest pain today, worse with deep breaths and when lying back; sometimes described as pressure (?elephant on chest?). Chest X-ray: cardiomegaly with pulmonary vascular congestion; incidental atherosclerosis noted. Plan discussed to evaluate for ischemia. - Complete troponin series to assess for cardiac injury. - Repeat EKGs to evaluate for ischemic changes. - Give aspirin 81 mg (add low-dose aspirin). - Continue statin therapy. - Consider stress testing versus angiography depending on echocardiogram and troponin trends (as discussed). Hypoxemia/oxygen requirement : Prehospital oxygen saturation 89%; improved to 94% on 2 L nasal cannula in ED. - Continue oxygen supplementation; wean as tolerated. Coronary artery disease (history) : Prior angiogram ([place], [place]) showed ~50% stenosis; no stent placed. Chest X-ray shows cardiomegaly and pulmonary vascular congestion. - Assess transthoracic echocardiogram to evaluate left ventricular function and valves. - Continue statin therapy. - Discussed with him addition of aspirin 81 mg daily. Follow-up : Records from prior hospitalization/cardiology care referenced ([place], [place]). Code status discussion held; patient okay with full resuscitative measures. - Obtain/review outside records from [place], [place]/heart and lung clinic. - Cardiology outpatient follow-up if inpatient ischemic evaluation is non-diagnostic (as discussed). PDMP PDMP Reviewed: Not Reviewed Attestations Medical Necessity Statement*: Place in observation for additional assessment and management of A-fib with RVR, COPD exacerbation with new hypoxia. and High MDM includes amount and/or complexity of data reviewed/ordered [ previous or external records, resulted lab(s)/test(s), ordered lab(s)/test(s) and other healthcare professional discussion] and described risk of complication, morbidity or mortality of management as documented Diagnoses Paroxysmal atrial fibrillation with RVR I48.0
--- NOTE | 2025-07-12 13:39 | USCV_ITS ---
Transthoracic Echo w Contrast Fan Simpson Age: 59 Gender: M : 1965 Exam Date: 07/12/2025 18:38 Ordering Phys: Donny Acuña MD Technologist: NAGI Exam Location: [facility] Indication: orthopnea, hypoxia, history of COPD, WOLF, CPAP, DM2, Afib, HTN, HL BP: 102 / 46 HR: 64 Rhythm: Atrial fibrillation Technical Quality: Adequate with [employer] MEASUREMENTS (Male / Female) Normal Values 2D ECHO LV Diastolic Diameter PLAX 4.6 cm 4.2 - 5.9 / 3.9 - 5.3 cm IVS Diastolic Thickness 1.3 cm 0.6 - 1.0 / 0.6 - 0.9 cm IVS Systolic Thickness 1.9 cm LVPW Diastolic Thickness 1.8 cm 0.6 - 1.0 / 0.6 - 0.9 cm LVPW Systolic Thickness 2.4 cm LVOT Diameter 2.4 cm LV Ejection Fraction 2D Teich 59.0 % LV Ejection Fraction MOD 4C 52.3 % LV Ejection Fraction MOD 2C 68.6 % LV Ejection Fraction 2C AL 68.2 % LA Diameter 4.5 cm Aorta at Sinotubular Diameter 3.4 cm IVC Diameter 2.1 cm M-MODE LA Ao Ratio MM 1.4 AV Cusp Separation MM 1.8 cm DOPPLER AV Peak Velocity 165.0 cm/s LVOT Peak Velocity 110.0 cm/s AV Area Cont Eq vti 3.7 cm squared AV Area Cont Eq pk 3.1 cm squared MV Peak Velocity 134.0 cm/s MV Area PHT 3.5 cm squared Mitral E to A Ratio 0.0 TV Peak E Velocity 81.0 cm/s PV Peak Velocity 149.0 cm/s FINDINGS Left Ventricle Normal left ventricular size and systolic function, EF 50 to 55%.. Abnormal septal motion consistent with conduction abnormality. Mild to moderate concentric left-ventricular hypertrophy.Grade I/IV diastolic dysfunction (abnormal relaxation filling pattern), normal to mildly elevated filling pressures. Right Ventricle Normal right ventricular size and systolic function. Right Atrium Normal right atrial size. Left Atrium Moderately increased left atrial size. Mitral Valve Thickened mitral valve. Mild mitral annular calcification. Aortic Valve Mild to moderate aortic valve calcification. Trace to mild aortic valve regurgitation. Features of aortic valve sclerosis Tricuspid Valve Trace tricuspid valve regurgitation. Pulmonic Valve Mild pulmonary valve regurgitation. Pericardium No pericardial effusion. Aorta Normal aortic annulus size. IVC Normal inferior vena cava. CONCLUSIONS Normal left ventricular size and systolic function, EF 50 to 55%.. Abnormal septal motion consistent with conduction abnormality. Mild to moderate concentric left-ventricular hypertrophy.Grade I/IV diastolic dysfunction (abnormal relaxation filling pattern), normal to mildly elevated filling pressures. Moderately increased left atrial size. Thickened mitral valve. Mild mitral annular calcification. Mild to moderate aortic valve calcification. Trace to mild aortic valve regurgitation. Features of aortic valve sclerosis Trace tricuspid valve regurgitation. PA pressure could not be calculated because of the poor Doppler signals Mild pulmonary valve regurgitation. There is no pericardial effusion. Compared to the study from 05/13/2025 there may not be a significant change. Dr Jourdan Novak MD FACC (Electronically Signed) Final Date: 12 July 2025 20:09 S
[2025-07-12 13:43] LABS: Respiratory Syncytial Virus Ce NEGATIVE (Negative); SARS-CoV-2 PCR NEGATIVE (Negative)
[2025-07-12 14:09] LABS: Magnesium 1.8 mg/dL (1.7-2.3)
[2025-07-12 14:17] LABS: Procalcitonin 0.02 ng/mL (0-0.5)
[2025-07-12 14:20] LABS: Troponin 5 2HR 13.05 ng/L (0-15)
[2025-07-12 14:21] LABS: Troponin 5 2HR Delta -0.95 ABS# (0-10)
--- NOTE | 2025-07-12 14:37 | PC.NURSE ---
received from er in to room 112-1 via bed,at 1430.report received.pt is alert and awake and oriented x 4.denies pain of sob at present.afib on monitor-90's.on cardizem drip at 12.5 mg/hr.oriented to room environment.instructed to notify staff for any sob,pain,or for any concerns at all.pt verb understanding of instructions
[2025-07-12] MEDS: dilTIAZem ER (24HR) 180 mg Capsule PO (14:50)
[2025-07-12] MEDS: metoprolol succinate ER (24 HR) 25 mg Tablet PO (14:50)
[2025-07-12] MEDS: methylPREDNISolone sod succ 40 mg/mL INJ IVP ×2 (14:51→22:15)
--- NOTE | 2025-07-12 16:03 | ECG_ITS ---
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 Measurements Intervals [place] Rate: 84 P: 0 [place]: 0 QRS: -22 QRSD: 151 T: 91 QT: 430 QTc: 510 Interpretive Statements ATRIAL FIBRILLATION LEFT BUNDLE BRANCH BLOCK [120+ ms QRS DURATION, 80+ ms Q/S IN V1/V2, 85+ ms R IN I/aVL/V5/V6] Compared to ECG 07/12/2025 12:03:48 Left-axis deviation no longer present Electronically Signed On 07-13-2025 09:27:57 CDT by Jourdan Novak M.D. [email or web address] [id number]
[2025-07-12] MEDS: dilTIAZem 100 MG in sodium chloride 0.9% (add-van) 100 ML 12.5 MG IV (16:09)
[2025-07-12 16:53] LABS: Troponin 5 6HR 11.66 ng/L (0-15)
[2025-07-12 16:54] LABS: Troponin 5 6HR Delta -2.34 ng/L (0-12)
[2025-07-13] VITALS (22 sets, daily range): BP systolic 99–160; BP diastolic 53–92; PULSE 74–113; RESP 15–25; TEMP 36.2–36.8; O2SAT 90–96
[2025-07-13 04:39] LABS: Hematocrit 41.6 % (37-53); Hemoglobin 14.40 g/dL (11.27-16.99); Mean Corpuscular HGB Conc 34.6 g/dL (30-55); Mean Corpuscular Hemoglobin 31.1 pg (27-33); Mean Corpuscular Volume 89.8 fl (82-101); Nucleated Red Blood Cells % 0 %; Platelet Count 159 10^3/cmm (157-399); Red Blood Count 4.63 10^6/uL (3.85-5.65); White Blood Count 10.15 10^3/uL (3.29-11.43)
[2025-07-13 05:03] LABS: Anion Gap 19.0 (5-19); Blood Urea Nitrogen 19 mg/dL (8-23); Calcium 9.4 mg/dL (8.5-10.5); Carbon Dioxide 21 mmol/L (22-29); Chloride 101 mmol/L (98-107); Creatinine Clr Calc Pharmacy 114.8260; Glucose 245 mg/dL (65-115); Osmolality Calculated 294 mOsm/kg (285-295); Potassium 4.0 mmol/L (3.5-5.1); Sodium 137 mmol/L (136-145)
[2025-07-13] MEDS: perflutren protein-a microsphr 0.22 mg/mL SDV 3 mL IV (05:42)
[2025-07-13] MEDS: methylPREDNISolone sod succ 40 mg/mL INJ IVP ×3 (06:28→22:03)
[2025-07-13] MEDS: dilTIAZem ER (24HR) 180 mg Capsule PO (08:01)
[2025-07-13] MEDS: metoprolol succinate ER (24 HR) 25 mg Tablet PO (08:01)
--- OUTSIDE RECORDS SUMMARY | 2025-07-13 09:02 | XMS_ITS | Clinical Summary ---
Author Organization [facility] Address [address] [place] [address] Phone Care Team Providers Care Corporate Travel Consultant Name Role Phone Unavailable Primary Care Provider [...] (1 - 1-dose 75+ series) 2038 Insurance [place] PREFERRED
--- NOTE | 2025-07-13 20:02 | P.PN_ITS ---
Subjective 2 Subjective: He is feeling better today. Breathing is improving. Wheezing has resolved so far, additional wheezing this morning responded well to breathing treatment. He has a rescue inhaler at home. Never had a formal PFT. Will need a refill on the rescue inhaler. Vitals/I&O/Wt Last Vital Signs Temp 97.8 F 07/13/25 19:20 Pulse 82 07/13/25 19:34 Resp 18 07/13/25 19:34 BP 160/84 07/13/25 19:20 Pulse Ox 96 07/13/25 19:34 O2 Del Method Room Air 07/13/25 19:34 O2 Flow Rate 2 07/12/25 13:00 FiO2 21 07/12/25 08:12 07/13/25 07/13/25 07/13/25 06:59 14:59 22:59 Intake Total 360 / 1203.709 960 / 960 526.667 / 1486.667 Output Total 1250 / 3000 750 / 750 700 / 1450 Balance -890 / -1796.291 210 / 210 -173.333 / 36.667 Weight last 48 hrs Weight 128.14 kg Weight 129.416 kg Weight 128.367 kg Physical Exam 2 Const: COMMON NORMALS: patient oriented x3 and alert GENERAL APPEARANCE: c ooperative NUTRITIONAL APPEARANCE: obese ORIENTATION/CONSCIOUSNESS: Yes awake HENMT: COMMON NORMALS: oropharynx normal Neck/C-Spine: COMMON NORMALS: no JVD Resp: COMMON NORMALS: normal respiratory effort and clear to auscultation bilaterally AUSCULTATION: clear to auscultation bilaterally and diminished lung sounds Cardio: COMMON NORMALS: no JVD, regular rhythm, S1 normal heart sound present, S2 normal heart sound present and No murmurs present (Cardio) RHYTHM: regular rhythm HEART SOUNDS: S1 normal heart sound present and S2 normal heart sound present GI: COMMON NORMALS: Normal to inspection, nondistended, normoactive bowel sounds present, Soft to palpation and non-tender PALPATION: Yes Soft to palpation Extremity: COMMON NORMALS: no joint enlargement and no pedal edema Neuro: COMMON NORMALS: patient oriented x3 and moves all extremities S ENSORIUM/ORIENTATION: Yes alert Skin: COMMON NORMALS: no rashes or lesions noted GENERAL SKIN EXAM: no rashes or lesions noted Data 07/13/25 04:22 07/13/25 04:22 A&P Assessment and plan 1. Paroxysmal atrial fibrillation with RVR: Heart rate overall improving, down to 90s-low 100s, weaned down on Cardizem drip, but still remaining on 2.5 mg/h this afternoon. Continue to wean off. Resumed home medications. Continue to monitor heart rates. Monitor overnight, if continues to do well and off Cardizem, likely can discharge in the morning. Reviewed vitals, CBC, chemistry, echocardiogram, discussed with him. Without any recurrent chest pressure. No evidence of wall motion abnormality on echocardiogram. Discussed with him diastolic dysfunction. Troponin series unremarkable. Discussed with nursing, corrections caseworker. - With noted some chest pressure, (over the chest pain described as pleuritic), assess TTE. Complete troponin EKG series. Back in 2022 mild nonobstructive CAD, mildly decreased ejection fraction 45% on review of prior echo. LCx with 50% stenosis on coronary angiogram in [place] 04/07/2023. Plan: COPD exacerbation : Moderate COPD exacerbation. Gradually improving. Has never had a PFT. Will benefit from following up PFT after he recovers. Presentation with shortness of breath and dry cough; wheezing improved after nebulizer treatment. - Continue treatment with methylprednisolone (noted as solumedrol) 40 mg three times daily. Of risk of hyperglycemia, hypertension, encephalopathy, gastritis with IV steroids. - Nebulized bronchodilator treatments scheduled and as needed (PRN). - Reviewed C-reactive protein (CRP), procal, continue without antibiotics. - Provide oxygen support; wean as tolerated. - Reviewed viral studies: PCR for influenza, COVID, and respiratory syncytial virus (RSV). - Collect sputum culture if able. Chest pain/possible cardiac ischemia : Without recurrence chest pain. May have been related to A-fib with RVR. Reviewed echocardiogram and troponin series, discussed with him. Consider follow-up for outpatient stress test after discharge. Intermittent chest pain on admit, worse with deep breaths and when lying back; sometimes described as pressure (?elephant on chest?). Chest X-ray: cardiomegaly with pulmonary vascular congestion; incidental atherosclerosis noted. Plan discussed to evaluate for ischemia. - aspirin 81 mg (add low-dose aspirin). - Continue statin therapy. Hypoxemia/oxygen requirement : Resolving. Weaning down to room air. Prehospital oxygen saturation 89%; improved to 94% on 2 L nasal cannula in ED. - Continue oxygen supplementation; wean as tolerated. Coronary artery disease (history) : Prior angiogram ([place], [place]) showed ~50% stenosis; no stent placed. Chest X-ray shows cardiomegaly and pulmonary vascular congestion. - Assess transthoracic echocardiogram to evaluate left ventricular function and valves. - Continue statin therapy. - Discussed with him addition of aspirin 81 mg daily. Follow-up : Records from prior hospitalization/cardiology care referenced ([place], [place]) are available in EMR. Code status discussion held; patient okay with full resuscitative measures. - Obtain/review outside records from [place], [place]/heart and lung clinic. - Cardiology outpatient follow-up if inpatient ischemic evaluation is non- diagnostic (as discussed). PDMP PDMP Reviewed: Not Reviewed Attestations 2 Medical Necessity Statement*: Continue hospitalization for optimization of control of A-fib with RVR, COPD exacerbation. and High MDM includes amount and/or complexity of data reviewed/ordered [ resulted lab(s)/test(s), ordered lab(s)/test(s) and other healthcare professional discussion] and described risk of complication, morbidity or mortality of management as documented Diagnoses Paroxysmal atrial fibrillation with RVR I48.0
[2025-07-14] VITALS (9 sets, daily range): BP systolic 111–146; BP diastolic 61–87; PULSE 64–92; RESP 18–24; TEMP 36.1–36.8; O2SAT 92–95
[2025-07-14 04:36] LABS: Hematocrit 42.8 % (37-53); Hemoglobin 14.70 g/dL (11.27-16.99); Mean Corpuscular HGB Conc 34.3 g/dL (30-55); Mean Corpuscular Hemoglobin 31.0 pg (27-33); Mean Corpuscular Volume 90.3 fl (82-101); Nucleated Red Blood Cells % 0 %; Platelet Count 180 10^3/cmm (157-399); Red Blood Count 4.74 10^6/uL (3.85-5.65); White Blood Count 12.42 10^3/uL (3.29-11.43)
[2025-07-14 05:03] LABS: Anion Gap 16.9 (5-19); Blood Urea Nitrogen 21 mg/dL (8-23); Calcium 9.6 mg/dL (8.5-10.5); Carbon Dioxide 25 mmol/L (22-29); Chloride 99 mmol/L (98-107); Creatinine Clr Calc Pharmacy 113.2085; Glucose 284 mg/dL (65-115); Osmolality Calculated 297 mOsm/kg (285-295); Potassium 3.9 mmol/L (3.5-5.1); Sodium 137 mmol/L (136-145)
[2025-07-14] MEDS: methylPREDNISolone sod succ 40 mg/mL INJ IVP (05:19)
[2025-07-14] MEDS: dilTIAZem ER (24HR) 180 mg Capsule PO (08:01)
[2025-07-14] MEDS: metoprolol succinate ER (24 HR) 25 mg Tablet PO (08:01)
--- NOTE | 2025-07-14 11:59 | P.DS_ITS ---
Discharge Providers Date of Admission: 07/12/25 09:58 Date of Discharge: July 17, 2025 Attending Provider at Admission: Donny Acuña Attending Provider at Discharge: Sandip Strauss MD Primary Care Provider: Kevin Duenas MD Diagnoses at Discharge Discharge Diagnosis 1. Paroxysmal atrial fibrillation with RVR: Reason for Visit Reason for Visit: difficulty breathing Hospital Course Hospital Course This is a 59-year-old male with past medical history of COPD, separate sleep apnea on CPAP, type 2 diabetes, atrial fibrillation, CAD, hypertension, hyperlipidemia who presents [facility] for shortness of breath and cough For patient's atrial fibrillation with rapid ventricular response, required Cardizem drip, transition off Cardizem to p.o. Cardizem, metoprolol, ambulating without significant symptomatology, discharged with close follow-up with radha lamb as outpatient. For patient's COPD exacerbation, required IV steroids, inpatient nebulizer therapies, overall clinically improved, will be discharged on a prednisone burst For patient's complaints of chest pain on admission, no chest pain during my evaluation or reported throughout hospitalization, no chest pain with exertion, no acute telemetry events, no clinically significant delta troponin, EKG did show left bundle branch block, cardiology consulted. Cardiac echocardiogram shows EF of 50 to 55%, patient underwent cardiac stress testing Stress testing IMPRESSIONS 1. Large area of prior infarct with minimal shasta-infarct ischemia seen in LAD territory. Large area of prior infarct seen in RCA territory. Attenuation artifact cannot be ruled out. Clinical correlation is required. 2. LV systolic function is moderately reduced with EF of 34%. -Patient complained of left-sided chest pain, rating to the shoulder after stress testing Coronary angiography performed, no obstructive CAD We discharged on his home aspirin, statin, Eliquis, with a close follow-up with cardiology as outpatient Patient was advised if he has any recurrent chest pain go to the emergency room Physical Exam Const: COMMON NORMALS: no acute distress and patient oriented x3 Resp: COMMON NORMALS: normal respiratory effort, No retractions, No use of accessory muscles and clear to auscultation bilaterally AUSCULTATION: clear to auscultation bilaterally Cardio: COMMON NORMALS: regular rate, regular rhythm, S1 normal heart sound present and S2 normal heart sound present RATE: regular rate RHYTHM: regular rhythm HEART SOUNDS: S1 normal heart sound present and S2 normal heart sound present GI: COMMON NORMALS: Normal to inspection, nondistended, normoactive bowel sounds present and non-tender Extremity: COMMON NORMALS: no pedal edema Neuro: COMMON NORMALS: patient oriented x3, CN's II-XII intact bilaterally and moves all extremities Psych: COMMON NORMALS: mental status grossly normal Discharge Data Studies Completed and Pending Completed Studies During Hospitalization Category Date Time Status XR chest 1V portable 65043 Stat Exams 07/12/25 07:20 Completed CV. echo wo/w contrast [id number] Routine Ultrasound 07/12/25 13:39 Completed Pending at discharge Category Date Time Status Basic Metabolic Panel AM LABS Lab 07/15/25 04:00 Ordered Complete Blood Count w/Auto AM LABS Lab 07/15/25 04:00 Ordered Radiology Impressions Chest X-Ray 07/12/25 07:20 Impression: 1. Cardiomegaly with pulmonary vascular congestion. 2. Atherosclerosis. Laboratory Results WBC 12.42 10^3/uL (3.29-11.43) H 07/14/25 02:51 RBC 4.74 10^6/uL (3.85-5.65) 07/14/25 02:51 Hgb 14.70 g/dL (11.27-16.99) 07/14/25 02:51 Hct 42.8 % (37-53) 07/14/25 02:51 MCV 90.3 fl (82-101) 07/14/25 02:51 MCH 31.0 pg (27-33) 07/14/25 02:51 MCHC 34.3 g/dL (30-55) 07/14/25 02:51 RDW 11.9 % (12.1-15.1) L 07/14/25 02:51 Plt Count 180 10^3/cmm (157-399) 07/14/25 02:51 MPV 10.5 fL (7.4-10.4) H 07/14/25 02:51 Neut % (Auto) 89.3 % 07/14/25 02:51 Lymph % (Auto) 6.8 % 07/14/25 02:51 [place] % (Auto) 3.3 % 07/14/25 02:51 Eos % (Auto) 0.0 % 07/14/25 02:51 Baso % (Auto) 0.1 % 07/14/25 02:51 Neut # (Auto) 11.09 10^3/uL (1.8-7.7) H 07/14/25 02:51 Lymph # (Auto) 0.9 10^3/uL (0.8-4.8) 07/14/25 02:51 [place] # (Auto) 0.4 10^3/uL (0.2-0.9) 07/14/25 02:51 Eos # (Auto) 0.0 10^3/uL (0.0-0.8) 07/14/25 02:51 Baso # (Auto) 0.0 10^3/uL (0.0-0.1) 07/14/25 02:51 Nucleated RBC % (auto) 0 % 07/14/25 02:51 Nucleated RBCs # 0.0 /100WBC 07/14/25 02:51 Sodium 137 mmol/L (136-145) 07/14/25 02:51 Potassium 3.9 mmol/L (3.5-5.1) 07/14/25 02:51 Chloride 99 mmol/L (98-107) 07/14/25 02:51 Carbon Dioxide 25 mmol/L (22-29) 07/14/25 02:51 Anion Gap 16.9 (5-19) 07/14/25 02:51 BUN 21 mg/dL (8-23) 07/14/25 02:51 Creatinine 0.9 mg/dL (0.7-1.2) 07/14/25 02:51 GFR Calculation 85.8 mL/min (90-130) L 07/14/25 02:51 Glucose 284 mg/dL (65-115) H 07/14/25 02:51 POC Glucose 322 mg/dL (70-110) H 07/14/25 06:22 Calculated Osmolality 297 mOsm/kg (285-295) H 07/14/25 02:51 Calcium 9.6 mg/dL (8.5-10.5) 07/14/25 02:51 Magnesium 1.8 mg/dL (1.7-2.3) 07/12/25 07:20 Total Bilirubin 0.4 mg/dL (0.15-1.2) 07/12/25 07:20 AST 12 U/L (0-40) 07/12/25 07:20 ALT 12 U/L (0-41) 07/12/25 07:20 Alkaline Phosphatase 60 U/L (40-130) 07/12/25 07:20 Troponin T Baseline 14 ng/L (0-15) 07/12/25 10:19 Troponin T 120 Minute 13.05 ng/L (0-15) 07/12/25 13:48 Delta Troponin T -0.95 ABS# (0-10) L 07/12/25 13:48 Troponin T Hi Sens 6Hr 11.66 ng/L (0-15) 07/12/25 15:48 Troponin T Hi Sens 6Hr Delta -2.34 ng/L (0-12) L 07/12/25 15:48 C-Reactive Protein 3.0 mg/L (0.0-4.9) 07/12/25 07:20 NT-Pro-B Natriuret Pep 348 pg/mL (0-125) H 07/12/25 07:20 Total Protein 7.1 g/dL (6.6-8.7) 07/12/25 07:20 Albumin 4.1 g/dL (3.5-5.2) 07/12/25 07:20 Globulin 3.0 g/dL (1.3-4.6) 07/12/25 07:20 Procalcitonin 0.02 ng/mL (0-0.5) 07/12/25 07:20 Influenza A (PCR) Negative (Negative) 07/12/25 12:42 Influenza Type B (PCR) Negative (Negative) 07/12/25 12:42 RSV (PCR) Negative (Negative) 07/12/25 12:42 SARS-CoV-2 (PCR) Negative (Negative) 07/12/25 12:42 Vitals Last Vital Signs Temp 96.9 F L 07/14/25 11:11 Pulse 92 07/14/25 11:11 Resp 20 H 07/14/25 11:11 BP 146/87 07/14/25 11:11 Pulse Ox 94 07/14/25 11:11 O2 Del Method Room Air 07/14/25 11:11 O2 Flow Rate 2 07/12/25 13:00 FiO2 21 07/13/25 23:00 Discharge Plan Discharge Patient Disposition: Home Condition: Stable Prescriptions: New albuterol sulfate [Ventolin HFA] 90 mcg/actuation HFA aerosol inhaler 2 inh inhalation Q8H PRN (Reason: shortness of breath or wheezing) Qty: 8.5 3RF prednisone 20 mg tablet 20 mg PO DAILY 3 Days Qty: 3 0RF insulin aspart U-100 [Novolog FlexPen U-100 Insulin] 100 unit/mL (3 mL) insulin pen See Rx Instructions .ROUTE .COMPLEX Qty: 15 0RF Rx Instructions: inject subcut, three times daily after meals, based on low dose insulin sliding scale aspirin 81 mg tablet 81 mg PO DAILY 30 Days Qty: 30 0RF Continued atorvastatin 40 mg tablet 40 mg PO DAILY Qty: 90 3RF lisinopril 20 mg Tablet 20 mg PO DAILY Qty: 30 0RF melatonin 3 mg Tablet 3 mg PO BEDTIME PRN (Reason: sleep) Qty: 90 0RF ketoconazole 2 % cream 1 applic topical BID Qty: 60 0RF metoprolol succinate 25 mg Tablet Extended Release 24 Hr 25 mg PO DAILY Qty: 30 0RF Ozempic 1 mg/dose (4 mg/3 mL) pen injector 1 mg SUBCUT Q7D Jardiance 25 mg tablet 25 mg PO DAILY chlorthalidone 25 mg tablet 25 mg PO DAILY itraconazole [Sporanox] 100 mg capsule 200 mg PO BID diltiazem HCl [DILT-XR] 180 mg Capsule,Ext.Rel 24h Degradable 180 mg PO DAILY 30 Days Qty: 30 0RF Eliquis 5 mg Tablet 5 mg PO BID@0900,2100 30 Days Qty: 60 0RF Hone Operator OK for DC: Cardiology Discharge Order = DC NOW: Discharge Order (Routine); Ordered 07/17/25 Ordered By: Sandip Strauss Referrals: Baron Nails MD [Physician, Cardiology] - 07/24/25 2:00 pm Kevin Duenas MD [Primary Care Provider, Family Practice] - 07/20/25 8:45 am Referral Note: Discharge Diet: Cardiac Discharge Activity: Resume usual activity Patient Instructions: Atrial Fibrillation, Albuterol (By breathing), Prednisone (By mouth), Insulin Aspart, Recombinant (By injection) (Novolog, Novolog..., Opioid Safety, Pain Management, Patient Portal & [place] Instructions Activity Restrictions/Additional Instructions: -Please monitor your blood sugars closely -Monitor your blood sugars 3 times daily as after meals -Please record your blood sugars, and a blood sugar log -For your NovoLog -Please inject blood sugar after meals based on sliding scale provided -Do not inject insulin if you do not eat as hypoglycemia kills -This is a NovoLog sliding scale -Insulin sliding ?fingerstick? Insulin ?141-180?0 units/sq 181-220?2 units/sq ?221-260?4 units/sq ?261-300 6 units/sq ?301-350?8 units/sq ?351-400 10 units/sq ?401-450?12 units/sq >450? 14units/sq -If your blood sugar is greater than 500 go to the emergency room -If your blood sugar is less than 60 or at anytime you feel lightheaded or dizzy or diaphoretic or have chest palpitations check your blood sugar, and eat a hard candy or drink orange juice and go immediately to the emergency room -Remember hypoglycemia kills, so if his blood sugar is less than 60 we have to increase it by taking in a sugary meal such as a hard candy or orange juice and go to the emergency room -If you have any questions please call us where here to help -If any chest pain please go to the emergency room Resume Chandrakant jacobson No lifting over 5 pounds with right arm for 4 days. Discharge Attestations Time Spent in Discharge Care*: greater than 30 min Quality Metrics Clinical Quality Measures [ No reported AMI, CVA or VTE this stay] Coding Level of Care Code 00841 Total time (in minutes) for Discharge: 45 Diagnoses Paroxysmal atrial fibrillation with RVR I48.0
--- NOTE | 2025-07-14 12:35 | ECG_ITS ---
[facility] Test Date: 2025-07-14 Pat Name: Fan Simpson Department: Room: 101 Gender: Male Globe Mounter: : 1965 Requested By: Sandip Strauss Order Number: [id number] Reading MD: BRIAN HOLCOMB Measurements Intervals [place] Rate: 81 P: 0 VT: 0 QRS: -7 QRSD: 156 T: 129 QT: 425 QTc: 496 Interpretive Statements ATRIAL FIBRILLATION LEFT BUNDLE BRANCH BLOCK [120+ ms QRS DURATION, 80+ ms Q/S IN V1/V2, 85+ ms R IN I/aVL/V5/V6] Compared to ECG 07/12/2025 16:03:18 No significant changes Electronically Signed On 07-16-2025 10:50:33 CDT by BRIAN HOLCOMB [email or web address] [id number]
--- NOTE | 2025-07-14 12:44 | PM.CONSULT ---
Providers/Reason For Consult Consulting Physician/Specialty*: Yordy Ferreira MD/ Cardiology Reason for Consult*: Chest pain Requesting Physician: Dr Strauss Attending Physician: Sandip Strauss MD Primary Care Provider: Kevin Duenas MD History of Present Illness History of Present Illness Fan Simpson is a 59 year old male with PMH of hypertension, diabetes, atrial fibrillation, WOLF who presented with afib with RVR. Associated with chest pain. Troponins have not trended up significantly. EKG shows atrial fibrillation and left bundle branch block. ECHO shows normal LV systolic function. Review of Systems Card: Reports: chest pain Medications/Allergies Home Medications ?Medication ?Instructions ?Recorded ?Confirmed ?Last Taken ?Type atorvastatin 40 mg tablet 40 mg PO DAILY #90 tabs 05/07/22 07/12/25 07/10/25 Rx semaglutide 1 mg/dose (4 mg/3 mL) 1 mg SUBCUT Q7D 03/15/25 07/12/25 Unknown History subcutaneous pen injector (Ozempic) ketoconazole 2 % topical cream 1 applic topical BID #60 grams 05/15/25 07/12/25 Unknown Rx lisinopril 20 mg tablet 20 mg PO DAILY #30 tabs 05/15/25 07/12/25 Unknown Rx melatonin 3 mg tablet 3 mg PO BEDTIME PRN sleep #90 tabs 05/15/25 07/12/25 Unknown Rx metoprolol succinate 25 mg 25 mg PO DAILY #30 tabs 05/15/25 07/12/25 Unknown Rx tablet,extended release 24 hr chlorthalidone 25 mg tablet 25 mg PO DAILY 07/12/25 07/12/25 Unknown History empagliflozin 25 mg tablet 25 mg PO DAILY 07/12/25 07/12/25 Unknown History (Jardiance) itraconazole 100 mg capsule 200 mg PO BID 07/12/25 07/12/25 Unknown History (Sporanox) albuterol sulfate 90 mcg/actuation 2 inh inhalation Q8H PRN shortness 07/13/25 Unknown Rx aerosol inhaler (Ventolin HFA) of breath or wheezing #8.5 grams apixaban 5 mg tablet (Eliquis) 5 mg PO BID@0900,2100 30 days #60 07/14/25 Unknown Rx tabs aspirin 81 mg tablet 81 mg PO DAILY 30 days #30 tabs 07/14/25 Unknown Rx diltiazem HCl 180 mg 180 mg PO DAILY 30 days #30 caps 07/14/25 Unknown Rx capsule,extended release 24 hr, controlled (DILT-XR) insulin aspart U-100 100 unit/mL See Rx Instructions .Route 07/14/25 Unknown Rx (3 mL) subcutaneous pen (Novolog .COMPLEX #15 mL FlexPen U-100 Insulin aspart) prednisone 20 mg tablet 20 mg PO DAILY 3 days #3 tabs 07/14/25 Unknown Rx Allergies Allergy/AdvReac Type Severity Reaction Status Date / Time No Known Allergies Allergy Verified 03/18/23 18:20 Current Medications Generic Name Dose Route Start Last Admin Trade Name Freq PRN Reason Stop Dose Admin Acetaminophen 650 mg 07/12/25 13:40 07/14/25 06:19 Acetaminophen 325 Mg Tablet PO 650 mg Q6H PRN Administration Mild/Mod Pain Or Temp >/= 101 Albuterol/Ipratropium 3 ml 07/12/25 14:00 07/14/25 09:13 Ipratropium-Albuterol 3 Ml Neb INHALATION Not Given Q6H.RESP LENNY Apixaban 5 mg 07/12/25 13:45 07/14/25 08:01 Apixaban 5 Mg Tablet PO 5 mg BID@0900,2100 LENNY Administration Atorvastatin Calcium 40 mg 07/13/25 09:00 07/14/25 08:02 Atorvastatin 40 Mg Tablet PO 40 mg DAILY LENNY Administration Chlorthalidone 25 mg 07/12/25 13:45 07/14/25 08:01 Chlorthalidone 25 Mg Tablet PO 25 mg DAILY LENNY Administration Diltiazem HCl 180 mg 07/12/25 13:45 07/14/25 08:01 Diltiazem Er (24hr) 180 Mg Capsule PO 180 mg DAILY LENNY Administration Diltiazem HCl 100 mg/ Sodium 100 mls @ 0 mls/hr 07/12/25 08:45 07/13/25 15:20 Chloride IV 0 mg/hr .Q0M LENNY 0 mls/hr Protocol Titration Per Protocol Insulin Human Lispro 0 unit 07/12/25 18:00 07/14/25 12:42 Insulin Lispro 100 Unit/1 Ml SUBCUT 6 unit WM&BEDTIME LENNY Administration Protocol Metoprolol Succinate 25 mg 07/12/25 13:45 07/14/25 08:01 Metoprolol Succinate Er (24 Hr) 25 Mg Tablet PO 25 mg DAILY LENNY Administration PFSH Acute PFSH: Medical History Morbid obesity with BMI of 40.0-44.9, adult Onychomycosis Paroxysmal A-fib Diabetes mellitus WOLF on CPAP Essential (primary) hypertension Surgical History History of colonoscopy with polypectomy Family History Father , AGE 56 Myocardial infarct Social History Smoking and tobacco/nicotine status: former use of tobacco/nicotine Alcohol intake: never Vitals/I&O/Wt Last Vital Signs Temp 96.9 F L 07/14/25 11:11 Pulse 92 07/14/25 11:11 Resp 20 H 07/14/25 11:11 BP 146/87 07/14/25 11:11 Pulse Ox 94 07/14/25 11:11 O2 Del Method Room Air 07/14/25 11:11 O2 Flow Rate 2 07/12/25 13:00 FiO2 21 07/13/25 23:00 07/13/25 07/14/25 07/14/25 22:59 06:59 14:59 Intake Total 646.667 / 1606.667 120 / 1726.667 360 / 360 Output Total 1350 / 2100 900 / 3000 Balance -703.333 / -493.333 -780 / -1273.333 360 / 360 Weight last 48 hrs Weight 278 lb Weight 282 lb 8 oz Weight 285 lb 5 oz Physical Exam Const: COMMON NORMALS: no acute distress, patient oriented x3 and alert Resp: COMMON NORMALS: clear to auscultation bilaterally AUSCULTATION: clear to auscultation bilaterally Cardio: COMMON NORMALS: regular rate, regular rhythm and No murmurs present (Cardio) RATE: regular rate RHYTHM: regular rhythm Extremity: OTHER: 1+ edema Neuro: COMMON NORMALS: patient oriented x3 SENSORIUM/ORIENTATION: Yes alert Data 07/15/25 01:58 07/15/25 01:58 A&P Assessment and plan 1. Atrial fibrillation with RVR: 2. Essential (primary) hypertension: 3. Chest pain: 4. WOLF on CPAP: 5. Diabetes mellitus: Plan: Patient has history of non-obstructive CAD with heart cath done in 2022 with 50% left circumflex artery stenosis. Had chest pain with afib with RVR. No significant troponin elevation. EF is normal. Has LBBB on EKG. Recommend stress test to assess for ischemia. Continue anticoagulation. Thank you for involving us with care of this patient. Please call with questions. PDMP PDMP Reviewed: Not Reviewed Consult Attestations Medical Necessity Statement: Care expected to cross 2 midnights. Coding Level of Care Code Acute Code for [facility] Diagnoses Atrial fibrillation with RVR I48.91 Essential (primary) hypertension I10 Chest pain R07.9 WOLF on CPAP G47.33 Diabetes mellitus E11.9
[2025-07-14 13:19] LABS: Troponin(5th) Baseline 10 ng/L (0-15)
--- NOTE | 2025-07-14 14:13 | ECG_ITS ---
[facility] Test Date: 2025-07-14 Pat Name: Fan Simpson Department: Room: 101 Gender: Male Director Of Analytics: : 1965 Requested By: Sandip Strauss Order Number: [id number] Reading MD: BRIAN HOLCOMB Measurements Intervals [place] Rate: 84 P: 0 W[place]: 0 QRS: -27 QRSD: 160 T: 121 QT: 437 QTc: 517 Interpretive Statements ATRIAL FIBRILLATION LEFT BUNDLE BRANCH BLOCK [120+ ms QRS DURATION, 80+ ms Q/S IN V1/V2, 85+ ms R IN I/aVL/V5/V6] Compared to ECG 07/14/2025 12:35:01 No significant changes Electronically Signed On 07-16-2025 10:56:05 CDT by BRIAN HOLCOMB [email or web address] [id number]
[2025-07-14 15:55] LABS: Troponin 5 2HR 9.13 ng/L (0-15)
[2025-07-14 15:57] LABS: Troponin 5 2HR Delta -0.87 ABS# (0-10)
--- NOTE | 2025-07-14 16:27 | P.PN_ITS ---
Vitals/I&O/Wt Last Vital Signs Temp 96.9 F L 07/14/25 11:11 Pulse 90 07/14/25 14:00 Resp 18 07/14/25 14:00 BP 146/87 07/14/25 11:11 Pulse Ox 93 07/14/25 14:00 O2 Del Method Room Air 07/14/25 14:00 O2 Flow Rate 2 07/12/25 13:00 FiO2 21 07/13/25 23:00 07/14/25 07/14/25 07/14/25 06:59 14:59 22:59 Intake Total 120 / 1726.667 480 / 480 Output Total 900 / 3000 Balance -780 / -1273.333 480 / 480 Weight last 48 hrs Weight 126.099 kg Weight 128.14 kg Physical Exam 2 Const: COMMON NORMALS: no acute distress and patient oriented x3 Resp: COMMON NORMALS: normal respiratory effort, No retractions, No use of accessory muscles and clear to auscultation bilaterally AUSCULTATION: clear to auscultation bilaterally Cardio: COMMON NORMALS: regular rate, regular rhythm, S1 normal heart sound present and S2 normal heart sound present RATE: regular rate RHYTHM: r egular rhythm HEART SOUNDS: S1 normal heart sound present and S2 normal heart sound present GI: COMMON NORMALS: Normal to inspection, nondistended, normoactive bowel sounds present and non-tender Extremity: COMMON NORMALS: no calf tenderness and no pedal edema Neuro: COMMON NORMALS: patient oriented x3 Psych: COMMON NORMALS: mental status grossly normal Data 07/14/25 02:51 07/14/25 02:51 A&P Assessment and plan 1. Paroxysmal atrial fibrillation with RVR: - Continue p.o. Cardizem - Continue metoprolol. - Continue Eliquis - With noted some chest pressure, (over the chest pain described as pleuritic), assess TTE. Complete troponin EKG series. Back in 2022 mild nonobstructive CAD, mildly decreased ejection fraction 45% on review of prior echo. LCx with 50% stenosis on coronary angiogram in [place] 04/07/2023. 2. Chest pain: - Aspirin, statin, Eliquis CONCLUSIONS Normal left ventricular size and systolic function, EF 50 to 55%.. Abnormal septal motion consistent with conduction abnormality. Mild to moderate concentric left-ventricular hypertrophy.Grade I/IV diastolic dysfunction (abnormal relaxation filling pattern), normal to mildly elevated filling pressures. Moderately increased left atrial size. Thickened mitral valve. Mild mitral annular calcification. Mild to moderate aortic valve calcification. Trace to mild aortic valve regurgitation. Features of aortic valve sclerosis Trace tricuspid valve regurgitation. PA pressure could not be calculated because of the poor Doppler signals Mild pulmonary valve regurgitation. There is no pericardial effusion. Compared to the study from 05/13/2025 there may not be a significant change. -History of coronary angiogram, nonobstructive CAD, no stents placed - EKG shows left bundle branch block - Will consult cardiology - N.p.o. midnight Wednesday, planning cardiac stress test on Wednesday 3. WOLF on CPAP: 4. Essential (primary) hypertension: 5. Diabetes mellitus: Plan: COPD exacerbation : - De-escalate to p.o. prednisone - Nebulizer as needed Hypoxemia/oxygen requirement : Resolving PDMP PDMP Reviewed: Not Reviewed Attestations 2 Medical Necessity Statement*: Patient requires hospitalization for chest pain, atrial fibrillation, COPD Diagnoses Paroxysmal atrial fibrillation with RVR I48.0 Chest pain R07.9 WOLF on CPAP G47.33 Essential (primary) hypertension I10 Diabetes mellitus E11.9
--- NOTE | 2025-07-14 18:13 | ECG_ITS ---
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
[2025-07-14 19:14] LABS: Troponin 5 6HR 11.68 ng/L (0-15); Troponin 5 6HR Delta 1.68 ng/L (0-12)
[2025-07-15] VITALS (10 sets, daily range): BP systolic 118–145; BP diastolic 80–94; PULSE 71–87; RESP 15–20; TEMP 36.1–36.9; O2SAT 92–97
[2025-07-15 04:19] LABS: Hematocrit 43.8 % (37-53); Hemoglobin 15.30 g/dL (11.27-16.99); Mean Corpuscular HGB Conc 34.9 g/dL (30-55); Mean Corpuscular Hemoglobin 31.9 pg (27-33); Mean Corpuscular Volume 91.4 fl (82-101); Nucleated Red Blood Cells % 0 %; Platelet Count 164 10^3/cmm (157-399); Red Blood Count 4.79 10^6/uL (3.85-5.65); White Blood Count 11.79 10^3/uL (3.29-11.43)
[2025-07-15 05:06] LABS: Anion Gap 15.3 (5-19); Blood Urea Nitrogen 22 mg/dL (8-23); Calcium 9.1 mg/dL (8.5-10.5); Carbon Dioxide 28 mmol/L (22-29); Chloride 97 mmol/L (98-107); Creatinine Clr Calc Pharmacy 101.8876; Glucose 243 mg/dL (65-115); Osmolality Calculated 295 mOsm/kg (285-295); Potassium 3.3 mmol/L (3.5-5.1); Sodium 137 mmol/L (136-145)
[2025-07-15] MEDS: metoprolol succinate ER (24 HR) 25 mg Tablet PO (07:45)
[2025-07-15] MEDS: dilTIAZem ER (24HR) 180 mg Capsule PO (07:45)
--- NOTE | 2025-07-15 08:32 | ECG_ITS ---
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 Interpretive Statements LEXISCAN: Procedure: At the baseline, the blood pressure was 135/98 mmHg with a heart rate of 85 bpm. The electrocardiogram showed atrial fibrillation with left bundle branch block. The Lexiscan was infused over a period of 20 seconds. A total of 0.4 mg of Lexiscan was infused. The stress phase was continued for a total of 5 minutes. Heart rate was at the end of stress phase was 89 bpm and a blood pressure of 135/100 mmHg. The EKG at the peak infusion revealed atrial fibrillation with no significant ST-T wave changes. Sestamibi was injected 20 seconds after the Lexiscan infusion. Blood pressure at the end of recovery phase was 131/97 mmHg with a heart rate of 87 bpm. Conclusion: 1. Normal EKG response to Lexiscan infusion 2. No Lexiscan induced chest pain or cardiac arrhythmia. 3. Normal blood pressure and heart rate response. 4. Sestamibi/sestamibi perfusion scan pending; see separate report. Electronically Signed On 07-25-2025 21:36:43 CDT by Yordy Ferreira M.D. [id number]
--- NOTE | 2025-07-15 13:27 | P.PN_ITS ---
Subjective 2 Subjective: Patient was seen this morning, denies any fevers, chills, no cough, no chest pain, no lightheadedness, no dizziness Vitals/I&O/Wt Last Vital Signs Temp 97.2 F L 07/15/25 11:46 Pulse 86 07/15/25 11:46 Resp 20 H 07/15/25 11:46 BP 124/80 07/15/25 11:46 Pulse Ox 97 07/15/25 11:46 O2 Del Method Room Air 07/15/25 11:46 O2 Flow Rate 2 07/12/25 13:00 FiO2 21 07/14/25 21:00 07/14/25 07/15/25 07/15/25 22:59 06:59 14:59 Intake Total 720 / 1200 600 / 600 Output Total 825 / 825 1350 / 1350 Balance -105 / 375 -750 / -750 Weight last 48 hrs Weight 126.099 kg Physical Exam 2 Const: COMMON NORMALS: no acute distress and patient oriented x3 Resp: COMMON NORMALS: normal respiratory effort, No retractions, No use of accessory muscles and clear to auscultation bilaterally AUSCULTATION: clear to auscultation bilaterally Cardio: COMMON NORMALS: regular rate, regular rhythm, S1 normal heart sound present and S2 normal heart sound present RATE: regular rate RHYTHM: r egular rhythm HEART SOUNDS: S1 normal heart sound present and S2 normal heart sound present GI: COMMON NORMALS: Normal to inspection, nondistended, normoactive bowel sounds present and non-tender Extremity: COMMON NORMALS: no pedal edema Neuro: COMMON NORMALS: patient oriented x3 Psych: COMMON NORMALS: mental status grossly normal Data 07/15/25 01:58 07/15/25 01:58 A&P Assessment and plan 1. Paroxysmal atrial fibrillation with RVR: - Continue p.o. Cardizem - Continue metoprolol. - Continue Eliquis - With noted some chest pressure, (over the chest pain described as pleuritic), assess TTE. Complete troponin EKG series. Back in 2022 mild nonobstructive CAD, mildly decreased ejection fraction 45% on review of prior echo. LCx with 50% stenosis on coronary angiogram in [place] 04/07/2023. 2. Chest pain: - Aspirin, statin, Eliquis CONCLUSIONS Normal left ventricular size and systolic function, EF 50 to 55%.. Abnormal septal motion consistent with conduction abnormality. Mild to moderate concentric left-ventricular hypertrophy.Grade I/IV diastolic dysfunction (abnormal relaxation filling pattern), normal to mildly elevated filling pressures. Moderately increased left atrial size. Thickened mitral valve. Mild mitral annular calcification. Mild to moderate aortic valve calcification. Trace to mild aortic valve regurgitation. Features of aortic valve sclerosis Trace tricuspid valve regurgitation. PA pressure could not be calculated because of the poor Doppler signals Mild pulmonary valve regurgitation. There is no pericardial effusion. Compared to the study from 05/13/2025 there may not be a significant change. -History of coronary angiogram, nonobstructive CAD, no stents placed - EKG shows left bundle branch block - Will consult cardiology - N.p.o. midnight Wednesday, planning cardiac stress test on Wednesday 3. WOLF on CPAP: 4. Essential (primary) hypertension: 5. Diabetes mellitus: Plan: COPD exacerbation : - De-escalate to p.o. prednisone - Nebulizer as needed Hypoxemia/oxygen requirement : Resolving PDMP PDMP Reviewed: Not Reviewed Attestations 2 Medical Necessity Statement*: Patient requires hospitalization for chest pain, planning on cardiac stress test tomorrow Diagnoses Paroxysmal atrial fibrillation with RVR I48.0 Chest pain R07.9 WOLF on CPAP G47.33 Essential (primary) hypertension I10 Diabetes mellitus E11.9
[2025-07-16] VITALS (13 sets, daily range): BP systolic 108–137; BP diastolic 78–97; PULSE 75–99; RESP 12–27; TEMP 36.6–37.1; O2SAT 92–98
[2025-07-16 05:29] LABS: Hematocrit 48.3 % (37-53); Hemoglobin 16.80 g/dL (11.27-16.99); Mean Corpuscular HGB Conc 34.8 g/dL (30-55); Mean Corpuscular Hemoglobin 30.9 pg (27-33); Mean Corpuscular Volume 88.8 fl (82-101); Nucleated Red Blood Cells % 0 %; Platelet Count 181 10^3/cmm (157-399); Red Blood Count 5.44 10^6/uL (3.85-5.65); White Blood Count 11.33 10^3/uL (3.29-11.43)
[2025-07-16 05:44] LABS: Blood Urea Nitrogen 24 mg/dL (8-23); Calcium 9.4 mg/dL (8.5-10.5); Carbon Dioxide 27 mmol/L (22-29); Chloride 95 mmol/L (98-107); Creatinine Clr Calc Pharmacy 111.6602; Glucose 227 mg/dL (65-115); Osmolality Calculated 291 mOsm/kg (285-295); Sodium 135 mmol/L (136-145)
[2025-07-16 06:01] LABS: Anion Gap 17.0 (5-19); Potassium 4.0 mmol/L (3.5-5.1)
[2025-07-16] MEDS: metoprolol succinate ER (24 HR) 25 mg Tablet PO (08:10)
[2025-07-16] MEDS: dilTIAZem ER (24HR) 180 mg Capsule PO (08:11)
--- NOTE | 2025-07-16 08:32 | NMCV_ITS ---
NM rosemarie perf SPECT r/s* [id number] Fan Simpson Age: 59 Gender: M : 1965 Exam Date: 07/16/2025 06:36 Ordering Phys: Sandip Strauss MD Technologist: MAHNAZ Doss Exam Location: [facility] Indications: cp STRESS TEST Please see separate stress test report in [facility] for full findings IMAGE PROTOCOL Rest/Stress 1 Lexiscan Day Radiopharmaceutical Dose (mCi) Administration Site Administered by Rest: Tc-99m 10.5 IV MAHNAZ Doss Sestamibi Stress:Tc-99m 32.5 IV MAHNAZ Blank Sestamibi Rest: 16-Jul-2025 60 Discovery 630 Stress: 16-Jul-2025 30 Discovery 630 0.4mg Lexiscan. Images obtained in supine and prone position. SPECT RESULTS Technical Quality: Good Raw Data Analysis: Normal Image Corrections: No attenuation or motion correction applied Summed Stress Score: 18 Summed Rest Score: 15 Summed Difference Score: 4 PERFUSION FINDINGS Large area of mostly fixed perfusion defect seen in apical, anterior and inferior santos. This is consistent with large areas of prior infarct with minimal shasta-infarct ischemia seen in LAD territory. Large area of infarct seen in RCA territory. Perfusion abnormality improves on prone imaging. Attenuation artifact cannot be ruled out. Clinical correlation is recommended. FUNCTIONAL RESULTS (calculated via Gated SPECT) Stress Image LV EF (%): 34 Stress EDV (mL):143 TID: 1.12 Stress ESV (mL):95 FUNCTIONAL FINDINGS: LV systolic function is moderately reduced. IMPRESSIONS 1. Large area of prior infarct with minimal shasta-infarct ischemia seen in LAD territory. Large area of prior infarct seen in RCA territory. Attenuation artifact cannot be ruled out. Clinical correlation is required. 2. LV systolic function is moderately reduced with EF of 34%. Yordy Ferreira MD (Electronically Signed) Final Date: 16 July 2025 09:35 S
--- NOTE | 2025-07-16 09:21 | ECG_ITS ---
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
--- NOTE | 2025-07-16 10:05 | P.PN_ITS ---
<Statement entered by Yordy Ferreira M.D - 07/19/25 11:49> Patient was cared for in conjunction with an advanced practice practitioner.? I reviewed the chart and all pertinent data including imaging, telemetry, and laboratory results.? I discussed the patient in detail with the advanced practice practitioner.? Please see their note for complete progress note, testing results and agreed upon plan of care for the patient. Subjective 2 Subjective: He had stress test this morning, showing fixed defect in the LAD with some periinfarct ischemia, fixed defect in the RCA territory. Stress LVEF 34%. TID 1.12. He had chest pain during the test, in the left chest, also continues to have some intermittent chest pressure after the test. Vitals/I&O/Wt Last Vital Signs Temp 98.8 F 07/16/25 08:00 Pulse 96 07/16/25 09:41 Resp 18 07/16/25 09:41 BP 108/78 07/16/25 08:00 Pulse Ox 92 07/16/25 09:41 O2 Del Method Room Air 07/16/25 09:41 O2 Flow Rate 2 07/12/25 13:00 FiO2 21 07/14/25 21:00 07/15/25 07/16/25 07/16/25 22:59 06:59 14:59 Intake Total 240 / 840 480 / 480 Output Total 850 / 3800 1200 / 3800 550 / 550 Balance -610 / -2960 -1200 / -2960 -70 / -70 Weight last 48 hrs Weight 271 lb Weight 271 lb Physical Exam 2 Const: COMMON NORMALS: no acute distress and patient oriented x3 GENERAL APPEARANCE: cooperative and comfortable ORIENTATION/CONSCIOUSNESS: Yes awake, Yes oriented to person, Yes oriented to place and Yes oriented to time Chest: COMMONS NORMALS: normal inspection of the chest and normal palpation of entire chest wall CHEST: Yes Symmetrical chest wall rise Resp: COMMON NORMALS: normal respiratory effort, No retractions, No use of accessory muscles and clear to auscultation bilaterally EFFORT & INSPECTION: Yes symmetric chest movement AUSCULTATION: clear to auscultation bilaterally Cardio: COMMON NORMALS: regular rate, regular rhythm, S1 normal heart sound present, S2 normal heart sound present, No gallops present (Cardio), No clicks present (Cardio), No murmurs present (Cardio) and No rub (Cardio) RATE: r egular rate RHYTHM: regular rhythm HEART SOUNDS: S1 normal heart sound present and S2 normal heart sound present PERIPHERAL PULSES: radial pulses present Extremity: COMMON NORMALS: no pedal edema Neuro: COMMON NORMALS: patient oriented x3 and moves all extremities S ENSORIUM/ORIENTATION: Yes oriented to person, Yes oriented to place and Yes oriented to time Data 07/16/25 04:27 07/16/25 04:27 A&P Assessment and plan 1. Abnormal stress test: 2. Diabetes mellitus: 3. Morbid obesity with BMI of 40.0-44.9, adult: 4. Essential (primary) hypertension: 5. Paroxysmal atrial fibrillation with RVR: Plan: He has abnormal stress test with continued chest pain. 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 Procedure was explained with risks od contrast induced nephropathy and bleeding. He agrees to proceed. Will hold apixaban for the rest of today perform LHC tomorrow. NPO after midnight tonight. PDMP PDMP Reviewed: Not Reviewed Attestations 2 Medical Necessity Statement*: ischemic workup Coding Level of Care Code Acute Code for [facility] Fwd Diagnoses Abnormal stress test R94.39 Diabetes mellitus E11.9 Morbid obesity with BMI of 40.0-44.9, adult E66.01; Z68.41 Essential (primary) hypertension I10 Paroxysmal atrial fibrillation with RVR I48.0
--- NOTE | 2025-07-16 14:03 | PM.PN ---
Subjective Subjective: patient was seen this morning reports chest pain after his stress test, has left shoulder pain, will await stress test and consultation with cardiology Vitals/I&O/Wt Last Vital Signs Temp 97.9 F 07/16/25 11:09 Pulse 88 07/16/25 11:09 Resp 27 H 07/16/25 11:09 BP 137/97 07/16/25 11:09 Pulse Ox 97 07/16/25 11:09 O2 Del Method Room Air 07/16/25 09:41 O2 Flow Rate 2 07/12/25 13:00 FiO2 21 07/14/25 21:00 07/15/25 07/16/25 07/16/25 22:59 06:59 14:59 Intake Total 240 / 840 840 / 840 Output Total 850 / 2600 1200 / 3800 1050 / 1050 Balance -610 / -1760 -1200 / -2960 -210 / -210 Weight last 48 hrs Weight 122.924 kg Weight 122.924 kg Physical Exam Const: COMMON NORMALS: no acute distress and patient oriented x3 Resp: COMMON NORMALS: normal respiratory effort, No retractions, No use of accessory muscles and clear to auscultation bilaterally AUSCULTATION: clear to auscultation bilaterally Cardio: COMMON NORMALS: regular rate, regular rhythm, S1 normal heart sound present and S2 normal heart sound present RATE: regular rate RHYTHM: regular rhythm HEART SOUNDS: S1 normal heart sound present and S2 normal heart sound present GI: COMMON NORMALS: Normal to inspection, nondistended, normoactive bowel sounds present and non-tender Extremity: COMMON NORMALS: no pedal edema Neuro: COMMON NORMALS: patient oriented x3 Psych: COMMON NORMALS: mental status grossly normal Data 07/16/25 04:27 07/16/25 04:27 A&P Assessment and plan 1. Paroxysmal atrial fibrillation with RVR: - Continue p.o. Cardizem - Continue metoprolol. - Continue Eliquis - With noted some chest pressure, (over the chest pain described as pleuritic), assess TTE. Complete troponin EKG series. Back in 2022 mild nonobstructive CAD, mildly decreased ejection fraction 45% on review of prior echo. LCx with 50% stenosis on coronary angiogram in [place] 04/07/2023. 2. Chest pain: - Aspirin, statin CONCLUSIONS Normal left ventricular size and systolic function, EF 50 to 55%.. Abnormal septal motion consistent with conduction abnormality. Mild to moderate concentric left-ventricular hypertrophy.Grade I/IV diastolic dysfunction (abnormal relaxation filling pattern), normal to mildly elevated filling pressures. Moderately increased left atrial size. Thickened mitral valve. Mild mitral annular calcification. Mild to moderate aortic valve calcification. Trace to mild aortic valve regurgitation. Features of aortic valve sclerosis Trace tricuspid valve regurgitation. PA pressure could not be calculated because of the poor Doppler signals Mild pulmonary valve regurgitation. There is no pericardial effusion. Compared to the study from 05/13/2025 there may not be a significant change. -History of coronary angiogram, nonobstructive CAD, no stents placed - EKG shows left bundle branch block - Will consult cardiology - N.p.o. midnight wednesday, planning cardiac stress test today 3. WOLF on CPAP: 4. Essential (primary) hypertension: 5. Diabetes mellitus: Plan: COPD exacerbation : - De-escalate to p.o. prednisone - Nebulizer as needed Hypoxemia/oxygen requirement : Resolving PDMP PDMP Reviewed: Not Reviewed Attestations Medical Necessity Statement*: patient requires hospitalization for chest pain Diagnoses Paroxysmal atrial fibrillation with RVR I48.0 Chest pain R07.9 WOLF on CPAP G47.33 Essential (primary) hypertension I10 Diabetes mellitus E11.9
[2025-07-17] VITALS (49 sets, daily range): BP systolic 108–144; BP diastolic 80–110; PULSE 70–94; RESP 9–25; TEMP 36.4–36.6; O2SAT 89–97
[2025-07-17 03:52] LABS: Hematocrit 50.7 % (37-53); Hemoglobin 17.90 g/dL (11.27-16.99); Mean Corpuscular HGB Conc 35.3 g/dL (30-55); Mean Corpuscular Hemoglobin 31.1 pg (27-33); Mean Corpuscular Volume 88.0 fl (82-101); Nucleated Red Blood Cells % 0 %; Platelet Count 231 10^3/cmm (157-399); Red Blood Count 5.76 10^6/uL (3.85-5.65); White Blood Count 13.80 10^3/uL (3.29-11.43)
[2025-07-17 04:20] LABS: Blood Urea Nitrogen 26 mg/dL (8-23); Calcium 9.7 mg/dL (8.5-10.5); Carbon Dioxide 28 mmol/L (22-29); Chloride 94 mmol/L (98-107); Creatinine Clr Calc Pharmacy 100.4941; Glucose 239 mg/dL (65-115); Osmolality Calculated 295 mOsm/kg (285-295); Sodium 136 mmol/L (136-145)
[2025-07-17 04:22] LABS: Anion Gap 17.4 (5-19); Potassium 3.4 mmol/L (3.5-5.1)
--- NOTE | 2025-07-17 06:21 | XACV_ITS ---
Exam Room: 2 Ht: 175 cm Wt: 122 kg BSA: 2.50 m2 Gender: Male : 1965 Any Known Allergies: No known allergies Exam Priority: Routine Procedure(s): Procedure Description: Diagnostic procedure Procedure Description: Left Heart Catheterization Procedure Description: Left ventriculography Procedure Description: Coronary Angiography Diagnostic Cath Status: Urgent Diagnostic Findings * INDICATION: Chest pain/ abnormal stress test. * No significant disease noted in the Left Main, Left Anterior Descending, Right, or Circumflex coronary arteries. * Coronary angiography shows right dominance. Conclusions 1. No significant disease noted in the Left Main, Left Anterior Descending, Right, or Circumflex coronary arteries. 2. Mild left ventricular systolic dysfunction. Ejection fraction of 45%. Recommendations * Aggressive risk factor modification. * Outpatient cardiology follow up in 2 weeks. Interventional RX Recommendation: medical therapy and/or counseling Diagnostic RX Recommendation: medical therapy and/or counseling Anticoagulation: Heparin Ventriculography Ejection Fraction: 45.0 % Pressures Phase:Rest AO : 124 / 89 ( 98 ) @ 8:24:00 AM 132 / 89 ( 105 ) @ 8:32:00 AM 134 / 89 ( 106 ) @ 8:32:00 AM LV : 141 / 1 / 12 @ 8:31:00 AM 135 / -3 / 9 @ 8:32:00 AM 135 / -2 / 9 @ 8:32:00 AM Valves Phase:DefaultPhase AV : 5.0 @ 7:36:47 AM AV Mean Gradient: 16.0 @ 7:36:47 AM Clinical Evaluation EBL: 5mL-10mL Procedural Details Pre-Procedure Time Out. Identified patient by full name and date of as verbalized by the patient/guarantor. Does the consent match the physician's order: Yes. Accurate & Complete Informed Consent: Yes. Inpatient/Outpatient History & Physical on Chart: Yes. If H&P is completed, is and addenduem needed: No; If yes, is the addendum complete: N/A. Visualize and Verify Site with Patient/Guarantor: N/A. Pre-op teaching completed and patient verbalized understanding. The risks, benefits, and alternatives of sedation and/or procedure were discussed by physician. The patient agrees to continue. Procedure started. [facility] Clinical Fraility Score: 3: Managing Well. 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 Chest Pain Symptom Assessment: Typical Angina Symptoms. Cardiovascular Instability: No. Correct patient, site and procedure confirmed by cath team. PERRLA. Strong, equal hand patternmaker helper bilaterally. Lungs clear x 5 lobes. IV Site on Arrival: 20 gauge in the left bicep. IV Fluids: 0.9% NaCl at KVO. 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 Pre Procedural Pulses: right radial was 2+. Oxygen started at 2liters/min via nasal canula. right groin was prepped with chloroprep then draped in the usual sterile fashion. right radial was prepped with chloroprep then draped in the usual sterile fashion. Physician notified. Baseline sample Acquired. HR: 87 BPM. Patient's family unavailable. The patient requests that Dr. Ferreira call his , Aline, after the procedure. Equipment: 6F - Radial. Cardiac Cath Pack. ACIST Manifold Kit Model BT 2000. Heparinized Saline (2 units/mL), 1000 mL bag. Physician arrived. Physician scrubbed in. Physician scrubbed in. Immediate Pre-Procedure Time Out. Correct Patient: Yes; Correct Procedure: Yes; Correct Site: Yes; Correct Patient Position: Yes; Correct Supplies: Yes; Dried Flammable Prep: Yes; Blood Products Available: N/A;. Lidocaine 1% infiltrated to the right radial. Arterial access obtained. A 5 austrian TIG catheter in over the exchange J wire. Multiple views taken of left coronary artery. Catheter redirected to the RCA. Multiple views taken of right coronary artery. Catheter removed over the exchange J wire. A 5 austrian Angled Pig catheter in over the exchange J wire. EDP Sample taken: LV 141/1,12; HR: 90 BPM; SpO2: 94%. LV gram performed in [place] @ 10 mL/second for a total of 30 mL. EDP Sample taken: LV 135/-4,9; HR: 85 BPM; SpO2: 95%. Pullback taken: LV 135/-3,9; AO 132/89(105); Mean: 16mmHg, Peak to Peak: 5mmHg, SEP: 9sec/min; HR: 84 BPM; SpO2: 95%. Catheter removed over the exchange J wire. Dr. Ferreira scrubbed out. A TR Band was successful obtaining hemostatsis at the Right Radial artery insertion site. Post Procedure: Pulses reassessed and unchanged. PERRLA. Strong, equal hand patternmaker helper bilaterally. No VTE prophylaxis required. Medication's Wasted: Lidocaine 1% = 18 mL. Medication's Wasted: Nitro = 49.8 mg. Medication's Wasted: Heparin = 1000 units. Medication's Wasted: Other = Versed 1 mg. Medication's Wasted: Other = Fentanyl 50 mcg. Total IV fluids: 40 mL. Post-op diagnosis: Non-obstructive CAD. Complications: none. Estimated blood loss: 5mL-10mL. Responsiveness - Normal response to verbal stimuli; alert and oriented, PERRLA. Airway - Unaffected, no intervention required; spontaneous ventilation. Circulation: W/N/L, pulses unchanged. Nausea/Vomiting: No. Vital chart was stopped. Procedure completed. Patient transferred by bed to 1st floor. Access Site Site: Right Radial artery Sheath Size: 6 Fr Hemostasis Method: TR Band Hemostasis Success: Successful Procedure Medications Start: 7:16 AM Stop: 7:16 AM Medication: Benadryl Amount: 25 mg Route: I.V. Start: 7:17 AM Stop: 7:17 AM Medication: Fentanyl Amount: 25 mcg Route: I.V. Start: 7:17 AM Stop: 7: AM Medication: Versed Amount: 1 mg Route: I.V. Start: 7:17 AM Stop: 7:17 AM Medication: Fentanyl Amount: 25 mcg Route: I.V. Start: 7: AM Stop: 7: AM Medication: Nitrogylcerin Amount: 200 mcg Route: I.A. Start: 7:24 AM Stop: 7:24 AM Medication: Heparin Amount: 5000 units Route: I.V. I, the attending physician, have reviewed and verified all procedure medications. Yes, all medications given per verbal order History/Risk Factors Hypertension: Yes Dyslipidemia: No Peripheral Arterial Disease (PAD): No Myocardial Infarction ([place]): No Obesity: Yes Renal Disease: No Prior Interventions PCI: No CABG: No Valve Surgery: No Report Signatures Finalized by Yordy Ferreira MD on 07/30/2025 09:09 AM
--- NOTE | 2025-07-17 07:17 | W.PM.OPSUD ---
Surgery/Procedure H&P Update DATE OF PROCEDURE: July 17, 2025 DATE H&P PERFORMED: 07/14/25 H&P UPDATE INFORMATION: I have reviewed H&P completed within last 30 days, I have examined patient prior to procedure and Changes to prior documentation as noted here CHANGES TO PREVIOUS DOCUMENTATION: Patient had stress test done that was abnormal. Plan for coronary angiogram PREOP DIAGNOSIS: Chest pain/ abnormal stress test PRIMARY INDICATION FOR PROCEDURE: Chest pain/ abnormal stress test PLANNED PROCEDURE: Operation Date: 07/17/25 08:30 Proposed Procedures p Cardiac Catheterization with possible PCI(Not Applicable) - Yordy Ferreira M.D Possible percutaneous coronary intervention PATIENT REASSESSED PRIOR TO SEDATION, WITH NO CHANGE NOTED: Yes PHYSICAL EXAM: alert, oriented x 3, clear to auscultation bilaterally and regular rate & rhythm AIRWAY EVAL/ANESTHESIA PLAN: normal airway, ASA III, Local Anesthesia, Risks, benefits & alternatives of sedation and/or procedure discussed and Patient agrees to continue as planned ADDITIONAL INFORMATION: Moderate sedation
--- NOTE | 2025-07-17 08:05 | PM.PROC ---
Procedure Note: Date of procedure: 07/17/25 Pre-procedure diagnosis: Chest pain/ abnormal stress test Post-procedure diagnosis: other (Nonobstructive coronary artery disease) Procedure: Patent left main, LAD and RCA. Mild left circumflex artery stenosis. Aggressive risk factor modification and medical therapy Performing Provider: Yordy Ferreira Complications: None Condition: stable Disposition: floor Coding Level of Care Code Acute Code for [facility]
[2025-07-17] MEDS: dilTIAZem ER (24HR) 180 mg Capsule PO (08:24)
[2025-07-17] MEDS: metoprolol succinate ER (24 HR) 25 mg Tablet PO (08:24)
--- NOTE | 2025-07-17 11:02 | P.PN_ITS ---
<Statement entered by Yordy Ferreira M.D - 07/19/25 11:58> Patient was cared for in conjunction with an advanced practice practitioner.? I reviewed the chart and all pertinent data including imaging, telemetry, and laboratory results.? I discussed the patient in detail with the advanced practice practitioner.? Please see their note for complete progress note, testing results and agreed upon plan of care for the patient. Subjective 2 Subjective: He had coronary angiogram this morning, revealing mild circumflex stenosis. No chest pain post procedure. Vitals/I&O/Wt Last Vital Signs Temp 97.6 F 07/17/25 08:00 Pulse 85 07/17/25 08:00 Resp 18 07/17/25 08:00 BP 142/88 07/17/25 08:00 Pulse Ox 94 07/17/25 08:00 O2 Del Method Room Air 07/17/25 07:46 O2 Flow Rate 2 07/16/25 00:15 FiO2 28 07/16/25 00:15 07/16/25 07/17/25 07/17/25 22:59 06:59 14:59 Intake Total 600 / 1440 480 / 480 Output Total 200 / 1250 Balance 400 / 190 480 / 480 Weight last 48 hrs Weight 271 lb Weight 271 lb Physical Exam 2 Const: COMMON NORMALS: no acute distress and patient oriented x3 GENERAL APPEARANCE: cooperative ORIENTATION/CONSCIOUSNESS: Yes awake, Yes oriented to person, Yes oriented to place and Yes oriented to time Chest: COMMONS NORMALS: normal inspection of the chest and normal palpation of entire chest wall CHEST: Yes Symmetrical chest wall rise Resp: COMMON NORMALS: normal respiratory effort, No retractions, No use of accessory muscles and clear to auscultation bilaterally AUSCULTATION: clear to auscultation bilaterally Cardio: COMMON NORMALS: regular rate, S1 normal heart sound present, S2 normal heart sound present, No gallops present (Cardio), No clicks present (Cardio), No murmurs present (Cardio) and No rub (Cardio) RATE: regular rate RHYTHM: a bnormal rhythm irregularly irregular HEART SOUNDS: S1 normal heart sound present and S2 normal heart sound present PERIPHERAL PULSES: radial pulses present positive right 2+ and femoral pulses present positive right 2+ Neuro: COMMON NORMALS: patient oriented x3 and moves all extremities S ENSORIUM/ORIENTATION: Yes oriented to person, Yes oriented to place and Yes oriented to time Skin: WOUNDS: Yes surgical site (no hematoma palpable) Details: no odor Data 07/17/25 02:52 07/17/25 02:52 A&P Assessment and plan 1. Paroxysmal atrial fibrillation with RVR: 2. Essential (primary) hypertension: 3. Diabetes mellitus: 4. Coronary artery disease: 5. Morbid obesity with BMI of 40.0-44.9, adult: Plan: No significant coronary artery disease by angiogram this morning. He can discharge home today after TR band released. 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 Follow up in cardiology clinic in 2 months. PDMP PDMP Reviewed: Not Reviewed Attestations 2 Medical Necessity Statement*: discharge today Coding Level of Care Code Acute Code for [facility] Diagnoses Paroxysmal atrial fibrillation with RVR I48.0 Essential (primary) hypertension I10 Diabetes mellitus E11.9 Coronary artery disease I25.10 Morbid obesity with BMI of 40.0-44.9, adult E66.01; Z68.41
== END 2025-07-17 13:09 | disposition home or self-care (01) ==
LOC: ER 09:58 → CSU 17:49 → ER IP 07-13 09:00
PROVIDERS: Internal Medicine; Admitting Provider Internal Medicine; Emergency Provider Emergency Medicine; PCP Family Medicine; Visit Provider Family Medicine
DX: I48.0 Paroxysmal atrial fibrillation (principal); I10 Essential (primary) hypertension; E11.9 Type 2 diabetes mellitus without complications; E66.01 Morbid (severe) obesity due to excess calories; Z68.41 Body mass index [BMI] 40.0-44.9, adult; I25.118 Atherosclerotic heart disease of native coronary artery with other forms of angina pectoris; G47.33 Obstructive sleep apnea (adult) (pediatric); Z99.89 Dependence on other enabling machines and devices; J44.9 Chronic obstructive pulmonary disease, unspecified; Z79.82 Long term (current) use of aspirin; Z79.4 Long term (current) use of insulin; Z79.01 Long term (current) use of anticoagulants
CPT/HCPCS: 36415; 36416; 71045; 78452; 80048; 80053; 82962; 83735; 83880; 84145; 84484; 85025; 86140; 87637; 93005; 93017; 93458; 94640; 94660; 94664; 96365; 96366; 96372; 96375; 99152; 99153; 99285; A9500; C1769; C1887; C1894; C8929; G0378; J1200; J1644; J1815; J2250; J2785; J2919; J3010; J3490; J7030; J7512; J7613; J9999; Q9967